=== PATIENT | male | born 1945 | race American Indian/Alaskan Native ===

== ENCOUNTER 2017-08-18 15:59 | Outpatient (CLI) | payer MEDICARE ==
[2017-08-18 16:42] LABS: Blood Urea Nitrogen 19 mg/dL (9-20)
== END 2017-08-18 16:00 | disposition home or self-care (01) ==
LOC: MRI 15:59
PROVIDERS: ATTEND Specialist
DX: G81.90 Hemiplegia, unspecified affecting unspecified side (principal)
CPT/HCPCS: 36415; 70553; 82565; 84520; A9577

== ENCOUNTER 2018-03-23 15:04 | Inpatient (IN) | payer MEDICARE ==
[2018-03-23 15:59] LABS: Basophils % (Auto) 0.6 % (0.0-1.8); Eosinophils # (Auto) 0.1 K/mm3 (0.0-0.4); Eosinophils % (Auto) 0.8 % (0.0-4.3); Hematocrit 46.9 % (35.5-45.6); Hemoglobin 15.2 gm/dl (11.8-15.2); Lymphocytes # (Auto) 2.4 K/mm3 (1.2-5.4); Lymphocytes % (Auto) 31.5 % (13.4-35.0); Mean Corpuscular HGB Conc 32 % (32-34); Mean Corpuscular Hemoglobin 26 pg (28-32); Mean Corpuscular Volume 82 fl (84-94); Monocytes # (Auto) 0.7 K/mm3 (0.0-0.8); Platelet Count 261 K/mm3 (140-440); Red Blood Count 5.75 M/mm3 (3.65-5.03); Red Cell Distribution Width 15.4 % (13.2-15.2)
[2018-03-23 16:02] LABS: INR 1.05 (0.87-1.13)
[2018-03-23 16:14] LABS: BUN/Creatinine Ratio 17; Blood Urea Nitrogen 20 mg/dL (9-20); Calcium 9.8 mg/dL (8.4-10.2); Hemolysis Index 7
--- NOTE | 2018-03-23 16:43 | Cat Scan Report ---
FINAL REPORT EXAM: CT HEAD/BRAIN WO CON HISTORY: neuro deficits < 6hrs or sx present upon awakening TECHNIQUE: CT examination of the head without IV contrast PRIORS: None. FINDINGS: Nonspecific small region of hypodensity is noted in the upper left parieto-occipital watershed region raising suspicion of focal ischemia or edema. Several nonspecific punctate densities in this region may be calcification or minimal hemorrhage. No evidence of acute fracture. The paranasal sinuses are clear as are the mastoid air cells and middle ear cavities. No brain midline shift. IMPRESSION: Small asymmetric hypodensity in the left parieto-occipital watershed region may reflect focal edema or ischemia. Nonspecific punctate densities in this region may be calcification or minimal hemorrhage. Recommend followup brain MRI with diffusion-weighted imaging to further characterize. 03/23/2018 at 4:34 p.m. EST: I discussed the findings over the phone with JUSTINO Jackson. She reports the patient has left eye visual disturbance
[2018-03-23] MEDS ORDERED: ASPIRIN PO ONE (17:40)
--- NOTE | 2018-03-23 17:48 | Emergency Department Report ---
ED Neuro Deficit HPI - General Chief Complaint: Neuro Symptoms/Deficit Stated Complaint: BLURRY VISON Time Seen by Provider: 03/23/18 16:47 Source: patient Mode of arrival: Ambulatory Limitations: No Limitations - History of Present Illness Initial Comments: Patient states that he had the gradual onset of generalized headache,, vague dizziness and blurred vision. Initially the patient stated that the visual symptoms were confined to the left eye. However on visual acuity testing he told me that he had blurred vision equally on both sides. He denied diplopia. He denied weakness or numbness of the face or extremities. He denies any difficulty in walking per se. He denies any visual field cuts. He is not taking any medicine for glaucoma. He said he took an aspirin at home today but family members said it was Tylenol. The symptoms have been static over the last 2 days. This is the patient's first medical encounter for the symptoms. His CT showed a hypodensity in the left parietal occipital watershed region. -: Gradual, days(s) Location: other (vision dizziness headache) Presenting Symptoms: Present: Blurred/Loss of Vision. Absent: Weak/Paralyzed One Side, Sudden, Severe Headache, Facial Droop/Numbness, Unable to Speak Clearly, Altered Mental Status History of same: No Place: home Severity: mild Quality: other Improves With: none Worsens With: none On Anticoagulants: No Context: gradual onset Associated Symptoms: denies other symptoms - Related Data Home Medications: Previous Rx's Medication Instructions Recorded Last Taken Type Azithromycin [Zithromax] 250 mg PO DAILY #6 tablet 10/21/16 Unknown Rx Allergies/Adverse Reactions: Allergies Allergy/AdvReac Type Severity Reaction Status Date / Time No Known Allergies Allergy Unverified 09/23/16 10:27 ED Review of Systems ROS: Stated complaint: BLURRY VISON Other details as noted in HPI Constitutional: denies: chills, fever Eyes: denies: eye pain, eye discharge, vision change ENT: denies: ear pain, throat pain Respiratory: denies: cough, shortness of breath, wheezing Cardiovascular: denies: chest pain, palpitations Endocrine: no symptoms reported Gastrointestinal: denies: abdominal pain, nausea, diarrhea Genitourinary: denies: urgency, dysuria Musculoskeletal: denies: back pain, joint swelling, arthralgia Skin: denies: rash, lesions Neurological: as per HPI, headache. denies: weakness, paresthesias Psychiatric: denies: anxiety, depression Hematological/Lymphatic: denies: easy bleeding, easy bruising ED Past Medical Hx - Past Medical History Hx Hypertension: Yes - Surgical History Past Surgical History?: No - Social History Smoking Status: Never Smoker Substance Use Type: None - Medications Home Medications: Home Medications Medication Instructions Recorded Confirmed Last Taken Type Azithromycin [Zithromax] 250 mg PO DAILY #6 tablet 10/21/16 Unknown Rx ED Neuro Physical Exam - General Limitations: No Limitations General appearance: alert, in no apparent distress Suspected Stroke: Yes - Head Head exam: Present: atraumatic, normocephalic - Eye Eye exam: Present: normal appearance, PERRL, EOMI. Absent: scleral icterus - ENT ENT exam: Present: mucous membranes moist - Neck Neck exam: Present: normal inspection. Absent: tenderness, meningismus - Respiratory Respiratory exam: Present: normal lung sounds bilaterally. Absent: respiratory distress - Cardiovascular Cardiovascular Exam: Present: regular rate, normal rhythm. Absent: systolic murmur, diastolic murmur, rubs, gallop - GI/Abdominal GI/Abdominal exam: Present: soft, normal bowel sounds. Absent: distended, tenderness, guarding, rebound, rigid - Rectal Rectal exam: Present: deferred - Extremities Exam Extremities exam: Present: normal inspection - Back Exam Back exam: Present: normal inspection - Neurological Exam Neurological exam: Present: alert, oriented X3, CN II-XII intact. Absent: motor sensory deficit - NIHSS Assessment Interval: Baseline 1a. Level of Consciousness: alert 1b. LOC Questions: answers correctly 1c. LOC Commands: performs tasks correctly 2. Best Gaze: normal 3. Visual: no visual loss (not grossly detectable states bilateral slight blurriness) 4. Facial Palsy: normal symmetrical movement 5b. Motor Arm Right: no drift 5a. Motor Arm Left: no drift 6a. Motor Leg Left: no drift 6b. Motor Leg Right: no drift 7. Limb Ataxia: absent 8. Sensory: normal 9. Best Language: no aphasia 10. Dysarthria: normal 11. Extinction/Inattention: no abnormality Total Score: 0 Stroke Severity: No Stroke Symptoms - Psychiatric Psychiatric exam: Present: normal affect, normal mood - Skin Skin exam: Present: warm, dry, intact, normal color. Absent: rash ED Course Vital Signs 03/23/18 03/23/18 15:30 17:42 Temperature 98.6 F 98.1 F Pulse Rate 66 55 L Respiratory 16 15 Rate Blood Pressure 167/87 Blood Pressure 132/65 [Left] O2 Sat by Pulse 99 98 Oximetry - Reevaluation(s) Reevaluation #1: The patient had a lacunar infarct in the left parieto-occipital watershed as per the CT. The radiologist states that there are punctate hyperdensities which may be calcification or minimal hemorrhage. I do not think that this is any contraindication to aspirin. TPA is not indicated as the patient has symptoms of 2 days' duration. The there's been no progression. The patient will be admitted for a stroke workup by Dr. Funk. His NIH stroke score is 0. 03/23/18 17:51 - Lab Data Result diagrams: 03/23/18 15:40 03/23/18 15:40 Lab Results 03/23/18 03/23/18 03/23/18 Range/Units 15:40 15:40 15:40 WBC 7.5 (4.5-11.0) K/mm3 RBC 5.75 H (3.65-5.03) M/mm3 Hgb 15.2 (11.8-15.2) gm/dl Hct 46.9 H (35.5-45.6) % MCV 82 L (84-94) fl MCH 26 L (28-32) pg MCHC 32 (32-34) % RDW 15.4 H (13.2-15.2) % Plt Count 261 (140-440) K/mm3 Lymph % (Auto) 31.5 (13.4-35.0) % [place] % (Auto) 9.0 H (0.0-7.3) % Eos % (Auto) 0.8 (0.0-4.3) % Baso % (Auto) 0.6 (0.0-1.8) % Lymph # 2.4 (1.2-5.4) K/mm3 [place] # 0.7 (0.0-0.8) K/mm3 Eos # 0.1 (0.0-0.4) K/mm3 Baso # 0.0 (0.0-0.1) K/mm3 Seg Neutrophils % 58.1 (40.0-70.0) % Seg Neutrophils # 4.4 (1.8-7.7) K/mm3 PT 14.2 (12.2-14.9) Sec. INR 1.05 (0.87-1.13) APTT 31.0 (24.2-36.6) Sec. Sodium 137 (137-145) mmol/L Potassium 4.6 (3.6-5.0) mmol/L Chloride 96.4 L (98-107) mmol/L Carbon Dioxide 28 (22-30) mmol/L Anion Gap 17 mmol/L BUN 20 (9-20) mg/dL Creatinine 1.2 (0.8-1.5) mg/dL Estimated GFR > 60 ml/min BUN/Creatinine Ratio 17 % Glucose 119 H (75-100) mg/dL Calcium 9.8 (8.4-10.2) mg/dL Troponin T < 0.010 (0.00-0.029) ng/mL - Radiology Data Radiology results: report reviewed Small asymmetric hypodensity in the left parietal occipital watershed see CT report Critical care attestation.: If time is entered above; I have spent that time in minutes in the direct care of this critically ill patient, excluding procedure time. ED Disposition Clinical Impression: CVA (cerebral vascular accident) Qualifiers: CVA mechanism: unspecified Qualified Code(s): I63.9 - Cerebral infarction, unspecified Disposition: DC-09 OP ADMIT IP TO THIS HOSP Is pt being admited?: Yes Does the pt Need Aspirin: Yes Condition: Stable Time of Disposition: 17:53
--- NOTE | 2018-03-23 22:40 | Magnetic Resonance Report ---
FINAL REPORT PROCEDURE: MR BRAIN WO CON TECHNIQUE: Magnetic resonance imaging of the brain was performed without contrast material. HISTORY: stroke left parietal occipital COMPARISON: CT head 03/23/2018 FINDINGS: Multiple hyperintense signal abnormalities are identified on the diffusion-weighted images involving the watershed zone of left parieto-occipital region and left caudate nucleus. Ischial smaller foci noted left centrum semiovale. There is no evidence of any acute intracranial hemorrhage. Cerebral sulci and ventricles are within normal limits for patient's age. T2 and FLAIR images demonstrate a few small hyperintense white matter signal abnormalities involving bilateral cerebral hemispheres which are of nonspecific nature measuring up to 4 millimeters. Posterior fossa structures are unremarkable. Bilateral internal artery canals and 7th and 8th nerve complexes within normal limits. Hyperintense signal is noted involving right mastoid air cells. Normal flow void signal is noted involving the vessels of [place]. Pituitary gland, infundibulum and optic chiasm demonstrate normal signal characteristics. IMPRESSION: Acute infarcts involving watershed zone of left parieto-occipital region and left caudate nucleus. No evidence of acute intracranial hemorrhage Right mastoiditis Note: Findings of this critical report were conveyed to JUSTINO Gould at 10:29 p.m. EST on 03/23/2018.
--- NOTE | 2018-03-23 22:48 | Magnetic Resonance Report ---
FINAL REPORT PROCEDURE: MR MRA/MRV HEAD WO CON TECHNIQUE: Axial 3-D [id number] MR angiography of the [place] of [place] and brain was performed. The source images were reconstructed in various views using maximum intensity projection. HISTORY: stroke left parietal occipital COMPARISON: No prior studies are available for comparison. FINDINGS: Vertebral arteries: Normal. Basilar artery: Normal. Internal carotid arteries: Right internal carotid artery is unremarkable. Left internal carotid artery demonstrates a borderline stenosis of the vertical cavernous portion.. Anterior cerebral arteries: Right anterior cerebral artery is unremarkable. A1 segment left anterior cerebral artery is not visualized which is most likely a normal variation.. Middle cerebral arteries: Normal. Posterior cerebral arteries: Normal. Vascular malformations: None. IMPRESSION: Borderline stenosis of the vertical portion left cavernous internal carotid. Conventional angiography may be recommended for further evaluation.
--- NOTE | 2018-03-23 23:10 | History and Physical Report ---
History of Present Illness Date of examination: 03/23/18 Date of admission: 03/23/18 17:54 Chief complaint: Chief complaint History of present illness: History of Present Illness: 72-year-old male comes in for dizziness and blurred vision and headache. Some weakness on the right side. Blurred vision in both eyes. Symptoms have been going on for 2 days. Able to walk. No exacerbating or relieving factors. Past Medical History Hx Hypertension: Yes Surgical History Past Surgical History?: No Social History Smoking Status: Never Smoker Substance Use Type: None Family history Hypertension - Medications Home Medications: Home Medications Medication Instructions Recorded Confirmed Last Taken Type Azithromycin [Zithromax] 250 mg PO DAILY #6 tablet 10/21/16 Unknown Rx Review of Systems ROS: Stated complaint: BLURRY VISON Other details as noted in HPI Constitutional: denies: chills, fever Eyes: denies: eye pain, eye discharge, vision change ENT: denies: ear pain, throat pain Respiratory: denies: cough, shortness of breath, wheezing Cardiovascular: denies: chest pain, palpitations Endocrine: no symptoms reported Gastrointestinal: denies: abdominal pain, nausea, diarrhea Genitourinary: denies: urgency, dysuria Musculoskeletal: denies: back pain, joint swelling, arthralgia Skin: denies: rash, lesions Neurological: as per HPI, headache. denies: weakness, paresthesias Psychiatric: denies: anxiety, depression Hematological/Lymphatic: denies: easy bleeding, easy bruising Medications and Allergies Allergies Allergy/AdvReac Type Severity Reaction Status Date / Time No Known Allergies Allergy Unverified 09/23/16 10:27 Home Medications Medication Instructions Recorded Confirmed Last Taken Type Azithromycin [Zithromax] 250 mg PO DAILY #6 tablet 10/21/16 Unknown Rx Exam - Constitutional Vitals: Temp Pulse Resp BP Pulse Ox 97.9 F 78 18 121/64 99 03/23/18 22:49 03/23/18 23:07 03/23/18 22:49 03/23/18 22:49 03/23/18 22:49 General appearance: Present: no acute distress, well-nourished - EENT Eyes: Present: PERRL ENT: hearing intact, clear oral mucosa - Neck Neck: Present: supple, normal ROM - Respiratory Respiratory effort: normal Respiratory: bilateral: CTA - Cardiovascular Heart rate: 76 Rhythm: regular Heart Sounds: Present: S1 & S2. Absent: rub, click - Extremities Extremities: no ischemia, pulses intact, pulses symmetrical, No edema Peripheral Pulses: within normal limits - Abdominal General gastrointestinal: Present: soft, non-tender, non-distended, normal bowel sounds Male genitourinary: Present: normal - Rectal Rectal Exam: deferred - Integumentary Integumentary: Present: clear, warm, dry - Musculoskeletal Musculoskeletal: gait normal, strength equal bilaterally - Psychiatric Psychiatric: appropriate mood/affect, intact judgment & insight - Neurologic Neurologic: CNII-XII intact, moves all extremities - Allied Health Allied health notes reviewed: nursing, case management Results - Labs CBC & Chem 7: 03/23/18 15:40 03/23/18 15:40 Labs: Laboratory Last Values WBC 7.5 K/mm3 (4.5-11.0) 03/23/18 15:40 RBC 5.75 M/mm3 (3.65-5.03) H 03/23/18 15:40 Hgb 15.2 gm/dl (11.8-15.2) 03/23/18 15:40 Hct 46.9 % (35.5-45.6) H 03/23/18 15:40 MCV 82 fl (84-94) L 03/23/18 15:40 MCH 26 pg (28-32) L 03/23/18 15:40 MCHC 32 % (32-34) 03/23/18 15:40 RDW 15.4 % (13.2-15.2) H 03/23/18 15:40 Plt Count 261 K/mm3 (140-440) 03/23/18 15:40 Lymph % (Auto) 31.5 % (13.4-35.0) 03/23/18 15:40 [place] % (Auto) 9.0 % (0.0-7.3) H 03/23/18 15:40 Eos % (Auto) 0.8 % (0.0-4.3) 03/23/18 15:40 Baso % (Auto) 0.6 % (0.0-1.8) 03/23/18 15:40 Lymph # 2.4 K/mm3 (1.2-5.4) 03/23/18 15:40 [place] # 0.7 K/mm3 (0.0-0.8) 03/23/18 15:40 Eos # 0.1 K/mm3 (0.0-0.4) 03/23/18 15:40 Baso # 0.0 K/mm3 (0.0-0.1) 03/23/18 15:40 Seg Neutrophils % 58.1 % (40.0-70.0) 03/23/18 15:40 Seg Neutrophils # 4.4 K/mm3 (1.8-7.7) 03/23/18 15:40 PT 14.2 Sec. (12.2-14.9) 03/23/18 15:40 INR 1.05 (0.87-1.13) 03/23/18 15:40 APTT 31.0 Sec. (24.2-36.6) 03/23/18 15:40 Thrombin Time 17.3 Sec. (15.1-19.6) 03/23/18 15:40 Sodium 137 mmol/L (137-145) 03/23/18 15:40 Potassium 4.6 mmol/L (3.6-5.0) 03/23/18 15:40 Chloride 96.4 mmol/L (98-107) L 03/23/18 15:40 Carbon Dioxide 28 mmol/L (22-30) 03/23/18 15:40 Anion Gap 17 mmol/L 03/23/18 15:40 BUN 20 mg/dL (9-20) 03/23/18 15:40 Creatinine 1.2 mg/dL (0.8-1.5) 03/23/18 15:40 Estimated GFR > 60 ml/min 03/23/18 15:40 BUN/Creatinine Ratio 17 % 03/23/18 15:40 Glucose 119 mg/dL (75-100) H 03/23/18 15:40 Calcium 9.8 mg/dL (8.4-10.2) 03/23/18 15:40 Troponin T < 0.010 ng/mL (0.00-0.029) 03/23/18 15:40 - Imaging and Cardiology EKG: report reviewed Imaging and Cardiology: IMPRESSION: Small asymmetric hypodensity in the left parieto-occipital watershed region may reflect focal edema or ischemia. Nonspecific punctate densities in this region may be calcification or minimal hemorrhage. Recommend followup brain MRI with diffusion-weighted imaging to further characterize. 2017 at 4:34 p.m. EST: I discussed the findings over the phone with RN Hazel Jackson. She reports the patient has left eye visual disturbance Assessment and Plan Advance Directives: Yes (full code) VTE prophylaxis?: Chemical Plan of care discussed with patient/family: Yes - Patient Problems (1) CVA (cerebral vascular accident) Current Visit: Yes Status: Acute Qualifiers: CVA mechanism: unspecified Qualified Code(s): I63.9 - Cerebral infarction, unspecified Plan to address problem: CVA workup Neurology consult requested MRI MRA echo and carotid duplex scan ordered Plavix not initiated. Will defer to neurology (2) Hypertension Current Visit: Yes Status: Chronic Qualifiers: Hypertension type: essential hypertension Qualified Code(s): I10 - Essential (primary) hypertension Plan to address problem: Losartan 100 mg by mouth daily (3) DVT prophylaxis Current Visit: Yes Status: Acute Plan to address problem: On heparin
[2018-03-23] MEDS ORDERED: SODIUM CHLORIDE FLUSH SYRINGE 10 ML IV PRN ×2 (23:12→23:16)
[2018-03-23] MEDS ORDERED: ZOFRAN IV PRN ×2 (23:12→23:16)
[2018-03-23] MEDS ORDERED: PERCOCET 5/325 PO PRN ×2 (23:12→23:16)
[2018-03-23] MEDS ORDERED: AMBIEN PO PRN ×2 (23:12→23:16)
[2018-03-23] MEDS ORDERED: TYLENOL PO PRN ×2 (23:12→23:16)
[2018-03-23] MEDS ORDERED: DILAUDID IV PRN (23:12)
[2018-03-23] MEDS ORDERED: MILK OF MAGNESIA PO PRN (23:16)
[2018-03-23] MEDS ORDERED: REGLAN PO PRN (23:16)
[2018-03-23] MEDS ORDERED: DULCOLAX PR PRN (23:16)
[2018-03-23] MEDS ORDERED: PHENERGAN PR PRN (23:16)
[2018-03-24] MEDS: NACL 0.9% 1000 ML 1,000 ML IV SCH ×2 (01:40→14:16)
[2018-03-24 06:44] LABS: Basophils % (Auto) 0.8 % (0.0-1.8); Eosinophils # (Auto) 0.1 K/mm3 (0.0-0.4); Eosinophils % (Auto) 1.9 % (0.0-4.3); Hematocrit 43.5 % (35.5-45.6); Hemoglobin 14.8 gm/dl (11.8-15.2); Lymphocytes % (Auto) 32.4 % (13.4-35.0); Mean Corpuscular HGB Conc 34 % (32-34); Mean Corpuscular Hemoglobin 28 pg (28-32); Mean Corpuscular Volume 81 fl (84-94); Monocytes # (Auto) 0.7 K/mm3 (0.0-0.8); Monocytes % (Auto) 11.7 % (0.0-7.3); Platelet Count 238 K/mm3 (140-440); Red Cell Distribution Width 15.8 % (13.2-15.2)
[2018-03-24 07:07] LABS: Alanine Aminotransferase 18 units/L (7-56); BUN/Creatinine Ratio 18; Blood Urea Nitrogen 18 mg/dL (9-20); Calcium 9.4 mg/dL (8.4-10.2); Chol/HDL Ratio 3.45 %; HDL Cholesterol 44 mg/dL (40-59); Hemolysis Index 3; LDL Cholesterol,Direct 102 mg/dL (50-130)
[2018-03-24] MEDS: PEPCID PO SCH ×2 (09:40→22:26)
[2018-03-24] MEDS: SODIUM CHLORIDE FLUSH SYRINGE 10 ML IV SCH ×2 (10:00→22:26)
[2018-03-24] MEDS ORDERED: PEPCID PO SCH (10:00)
--- NOTE | 2018-03-24 13:16 | History and Physical Report ---
History of Present Illness Date of examination: 03/24/18 Date of admission: 03/23/18 17:54 Chief complaint: FOCUSED NEUROLOGY CONSULT NOTE CC: I am asked to see this 72 M with two days of TUCKER, vague dizziness, and blurred vision, now resolved. ROBERT: Hx from chart adn patient. He has an Hx of HTN, and an HbA1c of 6.4 at this time. Then sx as above. Head CT (images reviewed) left parieto occipital hypodensity, head MRI (images reviewed) shows acute on DWI infarcts in left p-o lobe adn also in head of left caudate. MRA head borderline stenosis in vertical portion of intracavernous Carotid artery. No prior hx of stroke. ROS: an 11 point ROS ios negative NEURO EXAM: HEENT: nl, no trauma NECK: supple, no bruits COR: no m, rubs MS: alert, oriented x 3, speech fluent clear and without errors, follows commands well CN II - 12: al nl. no field cut to finger confrontation MOT: nl all four extrem SENS: denies loss to light touch throughout CEREB: fnf nl bilat DTRs: 1+ and symm prox and dist all four extrem, great toes downgoing to plantar stim bilat GAIT: not tested due to fall risk DX IMP: 1. Acute left parieto-occipital infarct (posterior circulation) and left caudate head infacrt (ant circ) of undermined cause. there are no clinical sequellae of these on exam. All his former sx have resolved. 2. Med dxs as above. RECC: 1. Get CTA neck 2. Get 2D echo 3. Do use ASA 325 mg po daily 4. Go from there. Sharee Del Angel MD Medications and Allergies Allergies Allergy/AdvReac Type Severity Reaction Status Date / Time No Known Allergies Allergy Unverified 09/23/16 10:27 Home Medications Medication Instructions Recorded Confirmed Last Taken Type No Known Home Medications [No 03/24/18 03/24/18 Unknown History Reported Home Medications] Active Meds: Active Medications Acetaminophen (Tylenol) 650 mg PO Q4H PRN PRN Reason: Pain, Mild (1-3) Atorvastatin Calcium (Lipitor) 40 mg PO QHS [place] Bisacodyl (Dulcolax) 10 mg ID QDAY PRN PRN Reason: Constipation Famotidine (Pepcid) 20 mg PO BID [facility] Last Admin: 03/24/18 09:40 Dose: 20 mg Hydralazine HCl (Apresoline) 10 mg IV Q6H PRN PRN Reason: Keep SBP between 160-185 mm Hg Hydromorphone HCl (Dilaudid) 0.5 mg IV Q3H PRN PRN Reason: Pain , Severe (7-10) Sodium Chloride (Nacl 0.9% 1000 Ml) 1,000 mls @ 75 mls/hr IV DIRECT [facility] Last Admin: 03/24/18 01:40 Dose: 75 mls/hr Magnesium Hydroxide (Milk Of Magnesia) 30 ml PO Q4H PRN PRN Reason: Constipation Metoclopramide HCl (Reglan) 10 mg PO Q6H PRN PRN Reason: Nausea And Vomiting Ondansetron HCl (Zofran) 4 mg IV Q8H PRN PRN Reason: Nausea And Vomiting Oxycodone/Acetaminophen (Percocet 5/325) 1 tab PO Q6H PRN PRN Reason: Pain, Moderate (4-6) Promethazine HCl (Phenergan) 25 mg ID Q6H PRN PRN Reason: Nausea And Vomiting Sodium Chloride (Sodium Chloride Flush Syringe 10 Ml) 10 ml IV BID [facility] Sodium Chloride (Sodium Chloride Flush Syringe 10 Ml) 10 ml IV PRN PRN PRN Reason: LINE FLUSH Zolpidem Tartrate (Ambien) 5 mg PO QHS PRN PRN Reason: Insomnia Physical Examination - Vital Signs Vital Signs: Vital Signs Temp Pulse Resp BP Pulse Ox 98.6 F 66 16 167/87 99 03/23/18 15:30 03/23/18 15:30 03/23/18 15:30 03/23/18 15:30 03/23/18 15:30 Results - Laboratory Findings CBC and BMP: 03/24/18 06:23 03/24/18 06:23 Abnormal Lab Findings: Abnormal Labs 03/23/18 03/23/18 03/23/18 15:40 15:40 23:26 RBC 5.75 H Hct 46.9 H MCV 82 L MCH 26 L RDW 15.4 H [place] % (Auto) 9.0 H Chloride 96.4 L Glucose 119 H Hemoglobin A1c 6.4 H 03/24/18 03/24/18 06:23 06:23 RBC 5.40 H Hct MCV 81 L MCH RDW 15.8 H [place] % (Auto) 11.7 H Chloride Glucose 105 H Hemoglobin A1c
--- NOTE | 2018-03-24 15:37 | Progress Note ---
Assessment and Plan Assessment and plan: Mr. Micah Garcia is a 72 yo man with htn and dm type 2 who pw headache, and lost of vision in left eye. -Acute ischemic infarct stoke: treat with asa/statin -hypertension: low salt diet, antihypertensive with parameters prn -newly diagnosis dm type 2 most likely, a1c 6.4: start metformin if renal function is ok and after dye study, no home insulin due to problem with eye sight -Severe malnutrition, bmi 15.9: consult Animal Scientist await echo with bubble study cta neck per neurology History Interval history: Patient was seen and examined. Follow-up on current diagnosis of vision loss left eye which is improving. Overnight uneventful. Patient denies any chest pain , shortness breath, nausea/vomiting or severe headaches. Imaging, nursing note, chart, labs and old chart reviewed. Discussed with patient. Hospitalist Physical - Physical exam Narrative exam: GEN: WDWN, NAD, Awake, Alert, Orientated x 3 HEENT: NCAT, EOMI, PERRL, OP Clear NECK: supple, no adenopathy, no thyromegaly, no JVD CVS/HEART: RRR, normal S1S2, pulses present bilaterally CHEST/LUNGS: CTA B, Symmetrical chest expansion, good air entry bilaterally GI/Abdomen: soft, NTND, good bowel sounds, no guarding or rebound /Bladder: no suprapubic tenderness, no CVA or paraspinal tenderness EXT/Skin: no c/c/e, no obvious rash MSK: FROM x 4 Neuro: CN 2-12 grossly intact, no new focal deficits Psych: calm - Constitutional Vitals: Temp Pulse Resp BP Pulse Ox 98.6 F 57 L 20 144/71 20 L 03/24/18 07:52 03/24/18 07:52 03/24/18 10:00 03/24/18 07:52 03/24/18 10:00 General appearance: Present: no acute distress, well-nourished Results - Labs CBC & Chem 7: 03/24/18 06:23 03/24/18 06:23 Labs: Laboratory Last Values WBC 6.1 K/mm3 (4.5-11.0) 03/24/18 06:23 RBC 5.40 M/mm3 (3.65-5.03) H 03/24/18 06:23 Hgb 14.8 gm/dl (11.8-15.2) 03/24/18 06:23 Hct 43.5 % (35.5-45.6) 03/24/18 06:23 MCV 81 fl (84-94) L 03/24/18 06:23 MCH 28 pg (28-32) 03/24/18 06:23 MCHC 34 % (32-34) 03/24/18 06:23 RDW 15.8 % (13.2-15.2) H 03/24/18 06:23 Plt Count 238 K/mm3 (140-440) 03/24/18 06:23 Lymph % (Auto) 32.4 % (13.4-35.0) 03/24/18 06:23 [place] % (Auto) 11.7 % (0.0-7.3) H 03/24/18 06:23 Eos % (Auto) 1.9 % (0.0-4.3) 03/24/18 06:23 Baso % (Auto) 0.8 % (0.0-1.8) 03/24/18 06:23 Lymph # 2.0 K/mm3 (1.2-5.4) 03/24/18 06:23 [place] # 0.7 K/mm3 (0.0-0.8) 03/24/18 06:23 Eos # 0.1 K/mm3 (0.0-0.4) 03/24/18 06:23 Baso # 0.0 K/mm3 (0.0-0.1) 03/24/18 06:23 Seg Neutrophils % 53.2 % (40.0-70.0) 03/24/18 06:23 Seg Neutrophils # 3.3 K/mm3 (1.8-7.7) 03/24/18 06:23 PT 14.2 Sec. (12.2-14.9) 03/23/18 15:40 INR 1.05 (0.87-1.13) 03/23/18 15:40 APTT 31.0 Sec. (24.2-36.6) 03/23/18 15:40 Thrombin Time 17.3 Sec. (15.1-19.6) 03/23/18 15:40 Sodium 141 mmol/L (137-145) 05/10/18 06:23 Potassium 4.5 mmol/L (3.6-5.0) 03/24/18 06:23 Chloride 99.9 mmol/L (98-107) 03/24/18 06:23 Carbon Dioxide 28 mmol/L (22-30) 03/24/18 06:23 Anion Gap 18 mmol/L 03/24/18 06:23 BUN 18 mg/dL (9-20) 03/24/18 06:23 Creatinine 1.0 mg/dL (0.8-1.5) 03/24/18 06:23 Estimated GFR > 60 ml/min 03/24/18 06:23 BUN/Creatinine Ratio 18 % 03/24/18 06:23 Glucose 105 mg/dL (75-100) H 03/24/18 06:23 Hemoglobin A1c 6.4 % (4-6) H 03/23/18 23:26 Calcium 9.4 mg/dL (8.4-10.2) 03/24/18 06:23 Total Bilirubin 0.70 mg/dL (0.1-1.2) 03/24/18 06:23 AST 29 units/L (5-40) 03/24/18 06:23 ALT 18 units/L (7-56) 03/24/18 06:23 Alkaline Phosphatase 90 units/L (35-129) 03/24/18 06:23 Troponin T < 0.010 ng/mL (0.00-0.029) 03/23/18 15:40 Total Protein 7.7 g/dL (6.3-8.2) 03/24/18 06:23 Albumin 4.0 g/dL (3.9-5) 03/24/18 06:23 Albumin/Globulin Ratio 1.1 % 03/24/18 06:23 Triglycerides 67 mg/dL (2-149) 03/24/18 06:23 Cholesterol 152 mg/dL (50-199) 03/24/18 06:23 LDL Cholesterol Direct 102 mg/dL (50-130) 03/24/18 06:23 HDL Cholesterol 44 mg/dL (40-59) 03/24/18 06:23 Cholesterol/HDL Ratio 3.45 % 03/24/18 06:23
[2018-03-24] MEDS ORDERED: D50W (25GM) Syringe IV PRN (15:43)
[2018-03-24] MEDS ORDERED: GLUCOPHAGE PO SCH (17:00)
[2018-03-24] MEDS: ASPIRIN PO SCH (19:06)
--- NOTE | 2018-03-24 19:34 | Cat Scan Report ---
FINAL REPORT EXAM: CT ANGIO NECK HISTORY: acute stroke TECHNIQUE: Spiral CTA of the neck after the uneventful administration of IV contrast. Multiplanar reformations. PRIORS: None. FINDINGS: Normal enhancement of the bilateral CCAs, ICAs and ECAs. Calcific, atherosclerotic change in the bilateral carotid bulbs and proximal ICAs, left greater than right. Marked, focal narrowing in the left ICA origin approximating 70% or greater stenosis by NASCET criteria. No abnormal aneurysmal dilatation, apparent dissection, other significant stenosis or occlusion. Vertebral arteries are patent and symmetric. Mild, calcific atherosclerotic change in the aortic arch. Degenerative change in the cervical spine. IMPRESSION: 1. Significant stenosis in left ICA origin as reported.
[2018-03-24] MEDS: HumaLOG SUB-Q SCH (22:25)
[2018-03-25] MEDS: NACL 0.9% 1000 ML 1,000 ML IV SCH (03:20)
--- NOTE | 2018-03-25 07:37 | Progress Note ---
Subjective Date of service: 03/25/18 Principal diagnosis: stroke Interval history: NEURO FOLLOW UP NOTE: 2d Echo: nl CTA neck: high grade stenosis left carotid bulb RECC: 1. Get Vasc Surg consult. 2. Go from there, call as needed. Sharee Del Angel MD Objective - Vital Sign Vital Signs - 12hr 03/24/18 03/24/18 03/25/18 20:06 23:54 00:00 Temperature 98.2 F 98.1 F Pulse Rate 73 66 65 Respiratory 18 18 Rate Blood Pressure 155/77 126/47 Blood Pressure [Left] O2 Sat by Pulse 100 96 Oximetry 03/25/18 03/25/18 03/25/18 04:00 05:34 05:47 Temperature 98.1 F Pulse Rate 66 56 L 56 L Respiratory Rate Blood Pressure Blood Pressure 129/78 [Left] O2 Sat by Pulse Oximetry - Laboratory Findings CBC and BMP: 03/24/18 06:23 03/24/18 06:23 Abnormal Lab Findings: Abnormal Labs 03/23/18 03/23/18 03/23/18 15:40 15:40 23:26 RBC 5.75 H Hct 46.9 H MCV 82 L MCH 26 L RDW 15.4 H [place] % (Auto) 9.0 H Chloride 96.4 L Glucose 119 H POC Glucose Hemoglobin A1c 6.4 H 03/24/18 03/24/18 03/25/18 06:23 06:23 06:41 RBC 5.40 H Hct MCV 81 L MCH RDW 15.8 H [place] % (Auto) 11.7 H Chloride Glucose 105 H POC Glucose 109 H Hemoglobin A1c
[2018-03-25] MEDS: HumaLOG SUB-Q SCH ×4 (07:56→23:52)
--- NOTE | 2018-03-25 10:55 | Consultation ---
History of Present Illness - Reason for Consult Consult date: 03/25/18 Left ICA stenosis - History of Present Illness 72-year-old male with history of diabetes, 5 years of smoking, who presents with headache, vague dizziness, and left-sided partial visual loss with blurred vision over the last few days. Patient denies any weakness or numbness to his upper or lower extremities. Denies visual field cut. Ultrasound demonstrates severe left ICA stenosis with ICA to CCA ratio greater than [address] demonstrates severe left-sided carotid artery stenosis at the bulb greater than 80% with irregularity. On physical exam, patient has no visual field cut, has full strength in upper and lower extremities, denies sensory loss, but does endorse left-sided visual loss. Patient is overall minimally symptomatic from his stroke. MRI demonstrates left-sided caudate and parieto-occipital watershed infarct. Past History Past Medical History: hypertension Past Surgical History: No surgical history Social history: smoking (no longer actively smoking, 5 years past exposure). denies: alcohol abuse, prescription drug abuse Family history: hypertension Medications and Allergies Allergies Allergy/AdvReac Type Severity Reaction Status Date / Time No Known Allergies Allergy Unverified 09/23/16 10:27 Home Medications Medication Instructions Recorded Confirmed Last Taken Type No Known Home Medications [No 03/24/18 03/24/18 Unknown History Reported Home Medications] Active Meds: Active Medications Acetaminophen (Tylenol) 650 mg PO Q4H PRN PRN Reason: Pain, Mild (1-3) Aspirin (Aspirin) 325 mg PO QDAY [facility] Last Admin: 03/24/18 19:06 Dose: 325 mg Atorvastatin Calcium (Lipitor) 40 mg PO QHS [facility] Last Admin: 03/24/18 22:26 Dose: 40 mg Bisacodyl (Dulcolax) 10 mg PA QDAY PRN PRN Reason: Constipation Dextrose (D50w (25gm) Syringe) 50 ml IV PRN PRN PRN Reason: Hypoglycemia Famotidine (Pepcid) 20 mg PO BID [facility] Last Admin: 03/24/18 22:26 Dose: 20 mg Hydralazine HCl (Apresoline) 10 mg IV Q6H PRN PRN Reason: Keep SBP between 160-185 mm Hg Hydromorphone HCl (Dilaudid) 0.5 mg IV Q3H PRN PRN Reason: Pain , Severe (7-10) Sodium Chloride (Nacl 0.9% 1000 Ml) 1,000 mls @ 75 mls/hr IV DIRECT [facility] Last Admin: 03/25/18 03:20 Dose: 75 mls/hr Insulin Human Lispro (Humalog) 0 unit SUB-Q ACHS [facility]; Protocol Last Admin: 03/24/18 22:25 Dose: Not Given Magnesium Hydroxide (Milk Of Magnesia) 30 ml PO Q4H PRN PRN Reason: Constipation Metoclopramide HCl (Reglan) 10 mg PO Q6H PRN PRN Reason: Nausea And Vomiting Ondansetron HCl (Zofran) 4 mg IV Q8H PRN PRN Reason: Nausea And Vomiting Oxycodone/Acetaminophen (Percocet 5/325) 1 tab PO Q6H PRN PRN Reason: Pain, Moderate (4-6) Promethazine HCl (Phenergan) 25 mg PA Q6H PRN PRN Reason: Nausea And Vomiting Sodium Chloride (Sodium Chloride Flush Syringe 10 Ml) 10 ml IV BID [facility] Last Admin: 03/24/18 22:26 Dose: 10 ml Sodium Chloride (Sodium Chloride Flush Syringe 10 Ml) 10 ml IV PRN PRN PRN Reason: LINE FLUSH Zolpidem Tartrate (Ambien) 5 mg PO QHS PRN PRN Reason: Insomnia Review of Systems All systems: negative (left visual symptoms) Exam - Constitutional Vitals: Temp Pulse Resp BP Pulse Ox 98.1 F 56 L 18 129/78 96 03/25/18 04:00 03/25/18 05:47 03/24/18 23:54 03/25/18 04:00 03/24/18 23:54 General appearance: Present: no acute distress - EENT ENT: other (left visual blurriness and difficulty seeing) - Neck Neck: Present: supple - Respiratory Respiratory effort: normal - Extremities Extremities: pulses intact (palpable pedal pulses), normal temperature, normal color Peripheral Pulses: within normal limits - Abdominal General gastrointestinal: Present: soft - Psychiatric Psychiatric: appropriate mood/affect, intact judgment & insight, memory intact - Neurologic Neurologic: CNII-XII intact, moves all extremities, other (left eye visual blurriness/difficulty seeing) Results - Labs CBC & Chem 7: 03/24/18 06:23 03/24/18 06:23 Labs: Abnormal lab results 03/25/18 Range/Units 06:41 POC Glucose 109 H (70-105) - Imaging and Cardiology CT Scan - head: report reviewed, image reviewed Venous US: report reviewed, image reviewed (arterial doppler) Assessment and Plan 72-year-old male with history of diabetes, 5 years of smoking, who presents with headache, vague dizziness, and left-sided partial visual loss with blurred vision over the last few days. Patient denies any weakness or numbness to his upper or lower extremities. Denies visual field cut. Ultrasound demonstrates severe left ICA stenosis with ICA to CCA ratio greater than [address] demonstrates severe left-sided carotid artery stenosis at the bulb greater than 80% with irregularity. MRI demonstrates left-sided caudate and parieto-occipital watershed infarct. Patient has a symptomatic left sided internal carotid artery lesion which is greater than 80% narrowed. He has a minor stroke. Discussed standard of care with patient which would be left-sided carotid endarterectomy after cardiac clearance. Patient understands. Risks, benefits, and alternatives discussed. Patient requires cardiac clearance. Continue antiplatelet and anti-statin therapy. Plan for endarterectomy this upcoming week.
[2018-03-25] MEDS: SODIUM CHLORIDE FLUSH SYRINGE 10 ML IV SCH ×3 (10:56→22:10)
[2018-03-25] MEDS: PEPCID PO SCH ×2 (10:56→21:54)
[2018-03-25] MEDS: ASPIRIN PO SCH (10:56)
--- NOTE | 2018-03-25 14:54 | Progress Note ---
Assessment and Plan Assessment and plan: Mr. Micah Garcia is a 72 yo man with htn and dm type 2 who pw headache, and lost of vision in left eye. -Acute ischemic infarct stoke: treat with asa/statin -High grade left ICA stenosis: consulted Vascular, see their note below, also consulted Cardiology for pre-op -hypertension: low salt diet, antihypertensive with parameters prn -newly diagnosis dm type 2 most likely, a1c 6.4: start metformin if renal function is ok and after dye study, no home insulin due to problem with eye sight -Severe malnutrition, bmi 15.9: consult Data Entry Manager per Dr. Patricio Bustamante: "72-year-old male with history of diabetes, 5 years of smoking, who presents with headache, vague dizziness, and left-sided partial visual loss with blurred vision over the last few days. Patient denies any weakness or numbness to his upper or lower extremities. Denies visual field cut. Ultrasound demonstrates severe left ICA stenosis with ICA to CCA ratio greater than [address] demonstrates severe left-sided carotid artery stenosis at the bulb greater than 80% with irregularity. On physical exam, patient has no visual field cut, has full strength in upper and lower extremities, denies sensory loss, but does endorse left-sided visual loss. Patient is overall minimally symptomatic from his stroke. MRI demonstrates left-sided caudate and parieto-occipital watershed infarct. 72-year-old male with history of diabetes, 5 years of smoking, who presents with headache, vague dizziness, and left-sided partial visual loss with blurred vision over the last few days. Patient denies any weakness or numbness to his upper or lower extremities. Denies visual field cut. Ultrasound demonstrates severe left ICA stenosis with ICA to CCA ratio greater than [address] demonstrates severe left-sided carotid artery stenosis at the bulb greater than 80% with irregularity. MRI demonstrates left-sided caudate and parieto-occipital watershed infarct. Patient has a symptomatic left sided internal carotid artery lesion which is greater than 80% narrowed. He has a minor stroke. Discussed standard of care with patient which would be left-sided carotid endarterectomy after cardiac clearance. Patient understands. Risks, benefits, and alternatives discussed. Patient requires cardiac clearance. Continue antiplatelet and anti-statin therapy. Plan for endarterectomy this upcoming week." History Interval history: Patient was seen and examined. Follow-up on current diagnosis of vision loss left eye which is improving. Overnight uneventful. Patient denies any chest pain , shortness breath, nausea/vomiting or severe headaches. Imaging, nursing note, chart, labs and old chart reviewed. Discussed with patient. Hospitalist Physical - Physical exam Narrative exam: GEN: WDWN, NAD, Awake, Alert, Orientated x 3 HEENT: NCAT, EOMI, PERRL, OP Clear NECK: supple, no adenopathy, no thyromegaly, no JVD CVS/HEART: RRR, normal S1S2, pulses present bilaterally CHEST/LUNGS: CTA B, Symmetrical chest expansion, good air entry bilaterally GI/Abdomen: soft, NTND, good bowel sounds, no guarding or rebound /Bladder: no suprapubic tenderness, no CVA or paraspinal tenderness EXT/Skin: no c/c/e, no obvious rash MSK: FROM x 4 Neuro: CN 2-12 grossly intact, no new focal deficits Psych: calm - Constitutional Vitals: Temp Pulse Resp BP Pulse Ox 98.1 F 56 L 18 129/78 96 03/25/18 04:00 03/25/18 05:47 03/24/18 23:54 03/25/18 04:00 03/24/18 23:54 General appearance: Present: no acute distress Results - Labs CBC & Chem 7: 03/24/18 06:23 03/24/18 06:23 Labs: Laboratory Last Values WBC 6.1 K/mm3 (4.5-11.0) 03/24/18 06:23 RBC 5.40 M/mm3 (3.65-5.03) H 03/24/18 06:23 Hgb 14.8 gm/dl (11.8-15.2) 03/24/18 06:23 Hct 43.5 % (35.5-45.6) 03/24/18 06:23 MCV 81 fl (84-94) L 03/24/18 06:23 MCH 28 pg (28-32) 03/24/18 06:23 MCHC 34 % (32-34) 03/24/18 06:23 RDW 15.8 % (13.2-15.2) H 03/24/18 06:23 Plt Count 238 K/mm3 (140-440) 03/24/18 06:23 Lymph % (Auto) 32.4 % (13.4-35.0) 03/24/18 06:23 [place] % (Auto) 11.7 % (0.0-7.3) H 03/24/18 06:23 Eos % (Auto) 1.9 % (0.0-4.3) 03/24/18 06:23 Baso % (Auto) 0.8 % (0.0-1.8) 03/24/18 06:23 Lymph # 2.0 K/mm3 (1.2-5.4) 03/24/18 06:23 [place] # 0.7 K/mm3 (0.0-0.8) 03/24/18 06: Eos # 0.1 K/mm3 (0.0-0.4) 03/24/18 06: Baso # 0.0 K/mm3 (0.0-0.1) 03/24/18 06:23 Seg Neutrophils % 53.2 % (40.0-70.0) 03/24/18 06:23 Seg Neutrophils # 3.3 K/mm3 (1.8-7.7) 03/24/18 06:23 PT 14.2 Sec. (12.2-14.9) 03/23/18 15:40 INR 1.05 (0.87-1.13) 03/23/18 15:40 APTT 31.0 Sec. (24.2-36.6) 03/23/18 15:40 Thrombin Time 17.3 Sec. (15.1-19.6) 03/23/18 15:40 Sodium 141 mmol/L (137-145) 03/24/18 06:23 Potassium 4.5 mmol/L (3.6-5.0) 03/24/18 06:23 Chloride 99.9 mmol/L (98-107) 03/24/18 06:23 Carbon Dioxide 28 mmol/L (22-30) 03/24/18 06:23 Anion Gap 18 mmol/L 03/24/18 06:23 BUN 18 mg/dL (9-20) 03/24/18 06:23 Creatinine 1.0 mg/dL (0.8-1.5) 03/24/18 06:23 Estimated GFR > 60 ml/min 03/24/18 06:23 BUN/Creatinine Ratio 18 % 03/24/18 06:23 Glucose 105 mg/dL (75-100) H 03/24/18 06:23 POC Glucose 106 (70-105) H 03/25/18 11:51 Hemoglobin A1c 6.4 % (4-6) H 03/23/18 23:26 Calcium 9.4 mg/dL (8.4-10.2) 03/24/18 06:23 Total Bilirubin 0.70 mg/dL (0.1-1.2) 03/24/18 06:23 AST 29 units/L (5-40) 03/24/18 06:23 ALT 18 units/L (7-56) 03/24/18 06:23 Alkaline Phosphatase 90 units/L (35-129) 03/24/18 06:23 Troponin T < 0.010 ng/mL (0.00-0.029) 03/23/18 15:40 Total Protein 7.7 g/dL (6.3-8.2) 03/24/18 06:23 Albumin 4.0 g/dL (3.9-5) 03/24/18 06:23 Albumin/Globulin Ratio 1.1 % 03/24/18 06:23 Triglycerides 67 mg/dL (2-149) 03/24/18 06:23 Cholesterol 152 mg/dL (50-199) 03/24/18 06:23 LDL Cholesterol Direct 102 mg/dL (50-130) 03/24/18 06:23 HDL Cholesterol 44 mg/dL (40-59) 03/24/18 06:23 Cholesterol/HDL Ratio 3.45 % 03/24/18 06:23
--- NOTE | 2018-03-25 16:00 | Consultation ---
History of Present Illness Consult date: 03/25/18 Past History Past Medical History: hypertension Past Surgical History: No surgical history Social history: smoking (no longer actively smoking, 5 years past exposure). denies: alcohol abuse, prescription drug abuse Family history: hypertension Medications and Allergies Allergies Allergy/AdvReac Type Severity Reaction Status Date / Time No Known Allergies Allergy Unverified 09/23/16 10:27 Home Medications Medication Instructions Recorded Confirmed Last Taken Type No Known Home Medications [No 03/24/18 03/24/18 Unknown History Reported Home Medications] Active Meds: Active Medications Acetaminophen (Tylenol) 650 mg PO Q4H PRN PRN Reason: Pain, Mild (1-3) Aspirin (Aspirin) 325 mg PO QDAY [facility] Last Admin: 03/25/18 10:56 Dose: 325 mg Atorvastatin Calcium (Lipitor) 80 mg PO QHS [facility] Bisacodyl (Dulcolax) 10 mg IN QDAY PRN PRN Reason: Constipation Dextrose (D50w (25gm) Syringe) 50 ml IV PRN PRN PRN Reason: Hypoglycemia Famotidine (Pepcid) 20 mg PO BID [facility] Last Admin: 03/25/18 10:56 Dose: 20 mg Hydralazine HCl (Apresoline) 10 mg IV Q6H PRN PRN Reason: Keep SBP between 160-185 mm Hg Hydromorphone HCl (Dilaudid) 0.5 mg IV Q3H PRN PRN Reason: Pain , Severe (7-10) Sodium Chloride (Nacl 0.9% 1000 Ml) 1,000 mls @ 75 mls/hr IV DIRECT [facility] Last Admin: 03/25/18 03:20 Dose: 75 mls/hr Insulin Human Lispro (Humalog) 0 unit SUB-Q ACHS [facility]; Protocol Last Admin: 03/25/18 07:56 Dose: Not Given Magnesium Hydroxide (Milk Of Magnesia) 30 ml PO Q4H PRN PRN Reason: Constipation Metoclopramide HCl (Reglan) 10 mg PO Q6H PRN PRN Reason: Nausea And Vomiting Ondansetron HCl (Zofran) 4 mg IV Q8H PRN PRN Reason: Nausea And Vomiting Oxycodone/Acetaminophen (Percocet 5/325) 1 tab PO Q6H PRN PRN Reason: Pain, Moderate (4-6) Promethazine HCl (Phenergan) 25 mg IN Q6H PRN PRN Reason: Nausea And Vomiting Sodium Chloride (Sodium Chloride Flush Syringe 10 Ml) 10 ml IV BID [facility] Last Admin: 03/25/18 10:56 Dose: 10 ml Sodium Chloride (Sodium Chloride Flush Syringe 10 Ml) 10 ml IV PRN PRN PRN Reason: LINE FLUSH Zolpidem Tartrate (Ambien) 5 mg PO QHS PRN PRN Reason: Insomnia Physical Examination Vital Signs Temp Pulse Resp BP Pulse Ox 98.6 F 66 16 167/87 99 03/23/18 15:30 03/23/18 15:30 03/23/18 15:30 03/23/18 15:30 03/23/18 15:30 Results 03/24/18 06:23 03/24/18 06:23 Assessment and Plan Detailed Cardiology consult dictated.
[2018-03-26] MEDS: NACL 0.9% 1000 ML 1,000 ML IV SCH ×2 (05:25→18:42)
[2018-03-26] MEDS: HumaLOG SUB-Q SCH ×4 (08:26→23:15)
[2018-03-26] MEDS: ASPIRIN PO SCH (10:09)
[2018-03-26] MEDS: PEPCID PO SCH ×2 (10:09→21:40)
[2018-03-26] MEDS: SODIUM CHLORIDE FLUSH SYRINGE 10 ML IV SCH ×2 (10:10→21:44)
--- NOTE | 2018-03-26 10:59 | Consultation ---
CARDIOLOGY CONSULTATION REFERRING PHYSICIAN: Dr. Shady Ackerman, hospitalist, and also Dr. Rashid Del Angel, neurologist. HISTORY OF PRESENT ILLNESS: A 72-year-old pleasant gentleman with history of multiple medical problems, hypertension, type 2 diabetes mellitus, hyperlipidemia, was admitted with partial loss of vision in the left eye associated with some blurring of vision and mild headache. A CAT scan of the head revealed a left parietooccipital watershed region -- focal edema or ischemia. CT angiogram of the neck revealed more than 70% stenosis of the left internal carotid artery. He is preop for surgery (left carotid endarterectomy). The patient has not had any chest pain, shortness of breath, nausea, vomiting, palpitations, presyncope or syncope. His echocardiogram done on 03/23/2018 revealed low normal LVEF of 50-55%, grade 1 diastolic left ventricular dysfunction, mild tricuspid regurgitation. There was no evidence of intracardiac shunt. His hemoglobin A1c recently was 6.4. PAST MEDICAL HISTORY: History of multiple medical problems as described above. No history of CAD or myocardial infarction in the past. SOCIAL HISTORY: Has been a smoker for the past 5 years. No history of alcoholic abuse. No history of drug abuse. FAMILY HISTORY: Negative for premature coronary artery disease. ADDENDUM: His serum troponin was negative. REVIEW OF SYSTEMS: CARDIOVASCULAR: As described in the history. NEUROLOGICAL: As described in the history. HEENT: As described in the history. METABOLISM AND ENDOCRINOLOGY: As described in the history. Review of rest of the 10 systems is negative. PHYSICAL EXAMINATION: GENERAL: A 72-year-old elderly pleasant -[place] gentleman. VITAL SIGNS: He is afebrile, pulse 56 per minute regular, blood pressure 129/78 mmHg, respirations 16 per minute. NEUROLOGIC: He is alert and oriented x 3. No focal neurological deficit. HEENT: Partial loss of vision in the left eye. NECK: Supple, no JVD, no bruit, no thyromegaly. HEART: PMI shifted laterally and is forcible in nature, no palpable thrills. Auscultation of heart revealed S1, S2 heard. S3 is loud, S4 is heard. No S3. No murmur or rub is appreciated. EXTREMITIES: Peripheral pulses felt. No edema. LUNGS: Bilateral air entry good and equal. No bronchial breathing, no wheezing. ABDOMEN: Soft, benign. No organomegaly. SKIN: Negative. BONE AND JOINTS: Negative. LABORATORY DATA: Potassium 4.5, BUN and creatinine were 20 and 1.2. Repeat BUN and creatinine 18 and 1. Glucose 106. Liver function test within normal limits. CBC, PT, PTT within normal limits. LDL is 102, HDL is 44 with normal triglycerides. EKG mild sinus bradycardia with rate of 57 per minute, first degree AV block. IMPRESSION: 1. Blurring and partial loss of vision in the left eye- Left acute CVA. 2. Critical stenosis in the left internal carotid artery (more than 70%). 3. History of hypertension, hyperlipidemia and type 2 diabetes mellitus. 4. Mild renal insufficiency, which has improved. 5. Normal left ventricular systolic function with evidence of grade 1 diastolic left ventricular dysfunction. RECOMMENDATIONS: The patient is cleared for the above surgery from a cardiac standpoint. Close blood pressure and cardiac monitoring is recommended. Since his LDL is 102, I would increase atorvastatin to 80 mg p.o. daily (the goal is to bring down 70 and below). Thank you again. We will follow. Yours Sincerely, JOB# [id number] SHELLY/HAROLDO PADILLA
--- NOTE | 2018-03-26 11:50 | Consultation ---
ADDENDUM TO CARDIOLOGY CONSULTATION The patient was a smoker in the past for about 5 years, but he has not smoked for many years now. JOB# [id number] SHELLY/HAROLDO
--- NOTE | 2018-03-26 12:01 | Progress Note ---
Assessment and Plan 72-year-old male with symptomatic left sided internal carotid artery lesion which is greater than 80% narrowed. He has a minor stroke with left eye issues. Patient cleared by cardiology. Patient will require clearance by neurology as well for left endarterectomy. Discussed this with Dr. Ackerman. After clearance by neurology, plan for left endarterectomy. Continue antiplatelet and anti-statin therapy. Subjective Date of service: 03/26/18 Principal diagnosis: stroke Interval history: Cleared by cardiology. Discussed with patient that we would like neurology to also agree with procedure. Neurology not available until Wednesday. Patient understands. No new issues. Still has left eye blurriness/decreased visual acuity. Objective - Constitutional Vitals: Vital Signs - 12hr 03/26/18 03/26/18 03/26/18 00:13 05:46 11:32 Temperature 97.4 F L 97.9 F Pulse Rate 60 56 L Respiratory 18 20 Rate Blood Pressure 147/72 138/57 O2 Sat by Pulse 97 99 100 Oximetry General appearance: Present: no acute distress - EENT ENT: hearing intact, other (left eye visual blurriness/decreased acuity) - Neck Neck: supple - Respiratory Respiratory effort: normal Extremities: normal temperature, normal color - Neurologic Neurologic: moves all extremities - Psychiatric Psychiatric: appropriate mood/affect, cooperative - Labs CBC & Chem 7: 03/24/18 06:23 03/24/18 06:23 Labs: Abnormal lab results 03/25/18 03/25/18 03/26/18 Range/Units 11:51 16:28 07:42 POC Glucose 106 H 140 H 114 H (70-105)
--- NOTE | 2018-03-26 14:26 | Progress Note ---
Assessment and Plan Assessment and plan: Mr. Micah Garcia is a 72 yo man with htn and dm type 2 who pw headache, and lost of vision in left eye. -Acute ischemic infarct stoke: treat with asa/statin -High grade left ICA stenosis: consulted Vascular, see their note below, also consulted Cardiology for pre-op -hypertension: low salt diet, antihypertensive with parameters prn -newly diagnosis dm type 2 most likely, a1c 6.4: start metformin if renal function is ok and after dye study, no home insulin due to problem with eye sight -Severe malnutrition, bmi 15.9: consult Ethnic Origins Teacher per Dr. Patricio Bustamante: "72-year-old male with history of diabetes, 5 years of smoking, who presents with headache, vague dizziness, and left-sided partial visual loss with blurred vision over the last few days. Patient denies any weakness or numbness to his upper or lower extremities. Denies visual field cut. Ultrasound demonstrates severe left ICA stenosis with ICA to CCA ratio greater than [address] demonstrates severe left-sided carotid artery stenosis at the bulb greater than 80% with irregularity. On physical exam, patient has no visual field cut, has full strength in upper and lower extremities, denies sensory loss, but does endorse left-sided visual loss. Patient is overall minimally symptomatic from his stroke. MRI demonstrates left-sided caudate and parieto-occipital watershed infarct. 72-year-old male with history of diabetes, 5 years of smoking, who presents with headache, vague dizziness, and left-sided partial visual loss with blurred vision over the last few days. Patient denies any weakness or numbness to his upper or lower extremities. Denies visual field cut. Ultrasound demonstrates severe left ICA stenosis with ICA to CCA ratio greater than [address] demonstrates severe left-sided carotid artery stenosis at the bulb greater than 80% with irregularity. MRI demonstrates left-sided caudate and parieto-occipital watershed infarct. Patient has a symptomatic left sided internal carotid artery lesion which is greater than 80% narrowed. He has a minor stroke. Discussed standard of care with patient which would be left-sided carotid endarterectomy after cardiac clearance. Patient understands. Risks, benefits, and alternatives discussed. Patient requires cardiac clearance. Continue antiplatelet and anti-statin therapy. Plan for endarterectomy this upcoming week." 04/05/18: d/w Dr. Bustamante, needs Neurology to ok the surgery. Will re-consult neurology, Dr. Cortes on Wednesday. History Interval history: Patient was seen and examined. Follow-up on current diagnosis of vision loss left eye which is improving. Overnight uneventful. Patient denies any chest pain , shortness breath, nausea/vomiting or severe headaches. Imaging, nursing note, chart, labs and old chart reviewed. Discussed with patient. Hospitalist Physical - Physical exam Narrative exam: GEN: WDWN, NAD, Awake, Alert, Orientated x 3 HEENT: NCAT, EOMI, PERRL, OP Clear NECK: supple, no adenopathy, no thyromegaly, no JVD CVS/HEART: RRR, normal S1S2, pulses present bilaterally CHEST/LUNGS: CTA B, Symmetrical chest expansion, good air entry bilaterally GI/Abdomen: soft, NTND, good bowel sounds, no guarding or rebound /Bladder: no suprapubic tenderness, no CVA or paraspinal tenderness EXT/Skin: no c/c/e, no obvious rash MSK: FROM x 4 Neuro: CN 2-12 grossly intact, no new focal deficits Psych: calm - Constitutional Vitals: Temp Pulse Resp BP Pulse Ox 97.9 F 56 L 20 138/57 100 03/26/18 05:46 03/26/18 05:46 03/26/18 05:46 03/26/18 05:46 03/26/18 11:32 General appearance: Present: no acute distress Results - Labs CBC & Chem 7: 03/24/18 06:23 03/24/18 06:23 Labs: Laboratory Last Values WBC 6.1 K/mm3 (4.5-11.0) 03/24/18 06:23 RBC 5.40 M/mm3 (3.65-5.03) H 03/24/18 06:23 Hgb 14.8 gm/dl (11.8-15.2) 03/24/18 06:23 Hct 43.5 % (35.5-45.6) 03/24/18 06:23 MCV 81 fl (84-94) L 03/24/18 06:23 MCH 28 pg (28-32) 03/24/18 06:23 MCHC 34 % (32-34) 03/24/18 06:23 RDW 15.8 % (13.2-15.2) H 03/24/18 06:23 Plt Count 238 K/mm3 (140-440) 03/24/18 06:23 Lymph % (Auto) 32.4 % (13.4-35.0) 03/24/18 06:23 [place] % (Auto) 11.7 % (0.0-7.3) H 03/24/18 06:23 Eos % (Auto) 1.9 % (0.0-4.3) 03/24/18 06:23 Baso % (Auto) 0.8 % (0.0-1.8) 03/24/18 06:23 Lymph # 2.0 K/mm3 (1.2-5.4) 03/24/18 06:23 [place] # 0.7 K/mm3 (0.0-0.8) 03/24/18 06: Eos # 0.1 K/mm3 (0.0-0.4) 03/24/18 06: Baso # 0.0 K/mm3 (0.0-0.1) 03/24/18 06:23 Seg Neutrophils % 53.2 % (40.0-70.0) 03/24/18 06:23 Seg Neutrophils # 3.3 K/mm3 (1.8-7.7) 03/24/18 06:23 PT 14.2 Sec. (12.2-14.9) 03/23/18 15:40 INR 1.05 (0.87-1.13) 03/23/18 15:40 APTT 31.0 Sec. (24.2-36.6) 03/23/18 15:40 Thrombin Time 17.3 Sec. (15.1-19.6) 03/23/18 15:40 Sodium 141 mmol/L (137-145) 03/24/18 06:23 Potassium 4.5 mmol/L (3.6-5.0) 03/24/18 06:23 Chloride 99.9 mmol/L (98-107) 03/24/18 06:23 Carbon Dioxide 28 mmol/L (22-30) 03/24/18 06:23 Anion Gap 18 mmol/L 03/24/18 06:23 BUN 18 mg/dL (9-20) 03/24/18 06:23 Creatinine 1.0 mg/dL (0.8-1.5) 03/24/18 06:23 Estimated GFR > 60 ml/min 03/24/18 06:23 BUN/Creatinine Ratio 18 % 03/24/18 06:23 Glucose 105 mg/dL (75-100) H 03/24/18 06:23 POC Glucose 96 (70-105) 03/26/18 10:52 Hemoglobin A1c 6.4 % (4-6) H 03/23/18 23:26 Calcium 9.4 mg/dL (8.4-10.2) 03/24/18 06:23 Total Bilirubin 0.70 mg/dL (0.1-1.2) 03/24/18 06:23 AST 29 units/L (5-40) 03/24/18 06:23 ALT 18 units/L (7-56) 03/24/18 06:23 Alkaline Phosphatase 90 units/L (35-129) 03/24/18 06:23 Troponin T < 0.010 ng/mL (0.00-0.029) 03/23/18 15:40 Total Protein 7.7 g/dL (6.3-8.2) 03/24/18 06:23 Albumin 4.0 g/dL (3.9-5) 03/24/18 06:23 Albumin/Globulin Ratio 1.1 % 03/24/18 06:23 Triglycerides 67 mg/dL (2-149) 03/24/18 06:23 Cholesterol 152 mg/dL (50-199) 03/24/18 06:23 LDL Cholesterol Direct 102 mg/dL (50-130) 03/24/18 06:23 HDL Cholesterol 44 mg/dL (40-59) 03/24/18 06:23 Cholesterol/HDL Ratio 3.45 % 03/24/18 06:23
--- NOTE | 2018-03-26 15:28 | Progress Note ---
Assessment and Plan As part of his preoperative cardiac risk stratification, he will undergo a Lexiscan stress MPI in a.m. More than likely, he should be able to proceed with his CEA from a cardiac standpoint. - Patient Problems (1) Acute CVA (cerebrovascular accident) Current Visit: Yes Status: Acute (2) Stenosis of left internal carotid artery with cerebral infarction Current Visit: Yes Status: Acute (3) Hypertension Current Visit: Yes Status: Chronic Qualifiers: Hypertension type: essential hypertension Qualified Code(s): I10 - Essential (primary) hypertension (4) Diabetes mellitus Current Visit: Yes Status: Chronic Qualifiers: Diabetes mellitus type: type 2 Subjective Date of service: 03/26/18 Principal diagnosis: CVA, LICA stenosis Interval history: No new complaint. Objective Vital Signs Temp Pulse Resp BP Pulse Ox 03/26/18 14:00 61 03/26/18 11:32 100 03/26/18 10:00 20 98 03/26/18 05:46 97.9 F 56 L 20 138/57 99 03/26/18 00:13 97.4 F L 60 18 147/72 97 03/25/18 22:00 65 03/25/18 21:23 98.3 F 67 20 143/68 99 03/25/18 20:13 99 - Physical Examination General: No Apparent Distress HEENT: Positive: EOMI, Normocephaly, Mucus Membranes Moist Neck: Positive: neck supple, trachea midline Cardiac: Positive: Reg Rate and Rhythm, S1/S2 Lungs: Positive: clear to auscultation Neuro: Positive: Grossly Intact Abdomen: Positive: Soft, Active Bowel Sounds. Negative: Tender Skin: Positive: Clear. Negative: Rash Musculoskeletal: Normal Range of Motion Extremities: Present: normal. Absent: edema - Telemetry EKG Rhythm: Sinus Rhythm
[2018-03-26] MEDS: APRESOLINE IV PRN (18:33)
[2018-03-26] MEDS: LOPRESSOR PO SCH (21:41)
[2018-03-26 21:53] LABS: BUN/Creatinine Ratio 14; Blood Urea Nitrogen 15 mg/dL (9-20); Calcium 9.4 mg/dL (8.4-10.2); Hemolysis Index 12
[2018-03-27] MEDS: HumaLOG SUB-Q SCH ×4 (07:30→22:52)
[2018-03-27] MEDS ORDERED: LEXISCAN IV ONE ×2 (08:18→08:28)
--- NOTE | 2018-03-27 12:00 | Treadmill Report ---
LEXISCAN STRESS TEST REPORT REASON FOR STUDY: Preoperative cardiac evaluation. STRESS TEST PROTOCOL: The patient received 0.4 mg of Lexiscan intravenously over 10 seconds. Technetium-99m Tetrofosmin was subsequently injected. Baseline EKG, sinus rhythm with first degree AV block. Lexiscan EKG, no diagnostic ischemic changes. No chest pain. No arrhythmias. IMPRESSION: Electrocardiographically negative stress test. Nuclear imaging report to follow. [facility]# [id number] AGO/NTS
--- NOTE | 2018-03-27 12:32 | Progress Note ---
Assessment and Plan He appears stable from a cardiac standpoint to proceed with his CEA. - Patient Problems (1) Acute CVA (cerebrovascular accident) Current Visit: Yes Status: Acute (2) Stenosis of left internal carotid artery with cerebral infarction Current Visit: Yes Status: Acute (3) Hypertension Current Visit: Yes Status: Chronic Qualifiers: Hypertension type: essential hypertension Qualified Code(s): I10 - Essential (primary) hypertension (4) Diabetes mellitus Current Visit: Yes Status: Chronic Qualifiers: Diabetes mellitus type: type 2 Subjective Date of service: 03/27/18 Principal diagnosis: CVA, LICA stenosis Interval history: His BP was significantly elevated last night. Antihypertensive medication has been initiated. No complaint this am. He underwent pharmacologic stress MPI this morning which was negative for ischemia. Objective Vital Signs Temp Pulse Resp BP Pulse Ox 03/27/18 04:55 98.3 F 65 20 131/70 99 03/27/18 00:20 98.1 F 62 18 151/74 99 03/26/18 21:41 90 182/81 03/26/18 20:33 98.4 F 87 18 182/81 99 03/26/18 18:33 61 177/86 03/26/18 14:00 61 - Physical Examination General: No Apparent Distress HEENT: Positive: EOMI, Normocephaly, Mucus Membranes Moist Neck: Positive: neck supple, trachea midline Cardiac: Positive: Reg Rate and Rhythm, S1/S2 Lungs: Positive: clear to auscultation Neuro: Positive: Grossly Intact Abdomen: Positive: Soft, Active Bowel Sounds. Negative: Tender Skin: Positive: Clear. Negative: Rash Musculoskeletal: Normal Range of Motion Extremities: Present: normal. Absent: edema - Labs and Meds Comprehensive Metabolic Panel 03/26/18 Range/Units 21:35 Sodium 138 (137-145) mmol/L Potassium 3.9 (3.6-5.0) mmol/L Chloride 101.2 (98-107) mmol/L Carbon Dioxide 23 (22-30) mmol/L BUN 15 (9-20) mg/dL Creatinine 1.1 (0.8-1.5) mg/dL Glucose 104 H (75-100) mg/dL Calcium 9.4 (8.4-10.2) mg/dL - Telemetry EKG Rhythm: Sinus Rhythm
--- NOTE | 2018-03-27 14:24 | Progress Note ---
Assessment and Plan Assessment and plan: Mr. Micah Garcia is a 72 yo man with htn and dm type 2 who pw headache, and lost of vision in left eye. -Acute ischemic infarct stoke: treat with asa/statin -High grade left ICA stenosis: consulted Vascular, see their note below, also consulted Cardiology for pre-op -hypertension: low salt diet, antihypertensive with parameters prn -newly diagnosis dm type 2 most likely, a1c 6.4: start metformin if renal function is ok and after dye study, no home insulin due to problem with eye sight -Severe malnutrition, bmi 15.9: consult Vacuum Metalizing Supervisor per Dr. Patricio Bustamante: "72-year-old male with history of diabetes, 5 years of smoking, who presents with headache, vague dizziness, and left-sided partial visual loss with blurred vision over the last few days. Patient denies any weakness or numbness to his upper or lower extremities. Denies visual field cut. Ultrasound demonstrates severe left ICA stenosis with ICA to CCA ratio greater than [address] demonstrates severe left-sided carotid artery stenosis at the bulb greater than 80% with irregularity. On physical exam, patient has no visual field cut, has full strength in upper and lower extremities, denies sensory loss, but does endorse left-sided visual loss. Patient is overall minimally symptomatic from his stroke. MRI demonstrates left-sided caudate and parieto-occipital watershed infarct. 72-year-old male with history of diabetes, 5 years of smoking, who presents with headache, vague dizziness, and left-sided partial visual loss with blurred vision over the last few days. Patient denies any weakness or numbness to his upper or lower extremities. Denies visual field cut. Ultrasound demonstrates severe left ICA stenosis with ICA to CCA ratio greater than [address] demonstrates severe left-sided carotid artery stenosis at the bulb greater than 80% with irregularity. MRI demonstrates left-sided caudate and parieto-occipital watershed infarct. Patient has a symptomatic left sided internal carotid artery lesion which is greater than 80% narrowed. He has a minor stroke. Discussed standard of care with patient which would be left-sided carotid endarterectomy after cardiac clearance. Patient understands. Risks, benefits, and alternatives discussed. Patient requires cardiac clearance. Continue antiplatelet and anti-statin therapy. Plan for endarterectomy this upcoming week." 04/05/18: d/w Dr. Bustamante, needs Neurology to ok the surgery. Will re-consult neurology, Dr. Cortes on Wednesday. History Interval history: Patient was seen and examined. Follow-up on current diagnosis of vision loss left eye which is improving. Overnight uneventful. Patient denies any chest pain , shortness breath, nausea/vomiting or severe headaches. Imaging, nursing note, chart, labs and old chart reviewed. Discussed with patient. Hospitalist Physical - Physical exam Narrative exam: GEN: WDWN, NAD, Awake, Alert, Orientated x 3 HEENT: NCAT, EOMI, PERRL, OP Clear NECK: supple, no adenopathy, no thyromegaly, no JVD CVS/HEART: RRR, normal S1S2, pulses present bilaterally CHEST/LUNGS: CTA B, Symmetrical chest expansion, good air entry bilaterally GI/Abdomen: soft, NTND, good bowel sounds, no guarding or rebound /Bladder: no suprapubic tenderness, no CVA or paraspinal tenderness EXT/Skin: no c/c/e, no obvious rash MSK: FROM x 4 Neuro: CN 2-12 grossly intact, no new focal deficits Psych: calm - Constitutional Vitals: Temp Pulse Resp BP Pulse Ox 98.3 F 80 20 151/73 99 03/27/18 04:55 03/27/18 11:26 03/27/18 04:55 03/27/18 11:26 03/27/18 04:55 General appearance: Present: no acute distress Results - Labs CBC & Chem 7: 03/24/18 06:23 03/26/18 21:35 Labs: Laboratory Last Values WBC 6.1 K/mm3 (4.5-11.0) 03/24/18 06:23 RBC 5.40 M/mm3 (3.65-5.03) H 03/24/18 06:23 Hgb 14.8 gm/dl (11.8-15.2) 03/24/18 06:23 Hct 43.5 % (35.5-45.6) 03/24/18 06:23 MCV 81 fl (84-94) L 03/24/18 06:23 MCH 28 pg (28-32) 03/24/18 06:23 MCHC 34 % (32-34) 03/24/18 06:23 RDW 15.8 % (13.2-15.2) H 03/24/18 06:23 Plt Count 238 K/mm3 (140-440) 03/24/18 06:23 Lymph % (Auto) 32.4 % (13.4-35.0) 03/24/18 06:23 [place] % (Auto) 11.7 % (0.0-7.3) H 03/24/18 06:23 Eos % (Auto) 1.9 % (0.0-4.3) 03/24/18 06:23 Baso % (Auto) 0.8 % (0.0-1.8) 03/24/18 06:23 Lymph # 2.0 K/mm3 (1.2-5.4) 03/24/18 06:23 [place] # 0.7 K/mm3 (0.0-0.8) 03/24/18 06: Eos # 0.1 K/mm3 (0.0-0.4) 03/24/18 06: Baso # 0.0 K/mm3 (0.0-0.1) 03/24/18 06:23 Seg Neutrophils % 53.2 % (40.0-70.0) 03/24/18 06: Seg Neutrophils # 3.3 K/mm3 (1.8-7.7) 03/24/18 06:23 PT 14.2 Sec. (12.2-14.9) 03/23/18 15:40 INR 1.05 (0.87-1.13) 03/23/18 15:40 APTT 31.0 Sec. (24.2-36.6) 03/23/18 15:40 Thrombin Time 17.3 Sec. (15.1-19.6) 03/23/18 15:40 Sodium 138 mmol/L (137-145) 03/26/18 21:35 Potassium 3.9 mmol/L (3.6-5.0) 03/26/18 21:35 Chloride 101.2 mmol/L (98-107) 03/26/18 21:35 Carbon Dioxide 23 mmol/L (22-30) 03/26/18 21:35 Anion Gap 18 mmol/L 03/26/18 21:35 BUN 15 mg/dL (9-20) 03/26/18 21:35 Creatinine 1.1 mg/dL (0.8-1.5) 03/26/18 21:35 Estimated GFR > 60 ml/min 03/26/18 21:35 BUN/Creatinine Ratio 14 % 03/26/18 21:35 Glucose 104 mg/dL (75-100) H 03/26/18 21:35 POC Glucose 156 (70-105) H 03/27/18 12:35 Hemoglobin A1c 6.4 % (4-6) H 03/23/18 23:26 Calcium 9.4 mg/dL (8.4-10.2) 03/26/18 21:35 Magnesium 2.00 mg/dL (1.7-2.3) 03/26/18 21:35 Total Bilirubin 0.70 mg/dL (0.1-1.2) 03/24/18 06:23 AST 29 units/L (5-40) 03/24/18 06:23 ALT 18 units/L (7-56) 03/24/18 06:23 Alkaline Phosphatase 90 units/L (35-129) 03/24/18 06:23 Troponin T < 0.010 ng/mL (0.00-0.029) 03/23/18 15:40 Total Protein 7.7 g/dL (6.3-8.2) 03/24/18 06:23 Albumin 4.0 g/dL (3.9-5) 03/24/18 06:23 Albumin/Globulin Ratio 1.1 % 03/24/18 06:23 Triglycerides 67 mg/dL (2-149) 03/24/18 06:23 Cholesterol 152 mg/dL (50-199) 03/24/18 06:23 LDL Cholesterol Direct 102 mg/dL (50-130) 03/24/18 06:23 HDL Cholesterol 44 mg/dL (40-59) 03/24/18 06:23 Cholesterol/HDL Ratio 3.45 % 03/24/18 06:23
[2018-03-27] MEDS: LOPRESSOR PO SCH ×2 (14:26→21:45)
[2018-03-27] MEDS: PEPCID PO SCH ×2 (14:26→21:45)
[2018-03-27] MEDS: DIOVAN PO SCH (14:31)
[2018-03-27] MEDS: ASPIRIN PO SCH (14:31)
[2018-03-27] MEDS: SODIUM CHLORIDE FLUSH SYRINGE 10 ML IV SCH ×2 (14:32→21:45)
--- NOTE | 2018-03-27 18:45 | Treadmill Report ---
THALLIUM REPORT REASON FOR STUDY: Preoperative cardiac evaluation. IMAGING PROTOCOL: The patient received 10 mCi of Tc-99m Tetrofosmin for rest imaging, and 28 mCi of Tc-99m Tetrofosmin for stress imaging. Imaging for all procedures was completed 30-90 minutes following the initial injection of Technetium 99m Tetrofosmin. SPECT imaging in the 180-degree arc was performed in the right anterior oblique projection. Computerized reconstruction of the images was performed for analysis. NUCLEAR IMAGING RESULTS: Normal left ventricular cavity size with no change from stress to rest. Distribution of radionuclide within the left ventricle revealed a large area of photo-induction involving the inferior, inferoseptal, and inferoapical region. The degree of photo-induction is [id number]. Rest imaging does not show any significant improvement in this defect. Gated SPECT imaging revealed normal global left ventricular systolic function with moderate septal hypokinesis. The calculated left ventricular ejection fraction is 63%. IMPRESSION: Large fixed inferior, inferoseptal and inferoapical defect. Normal global left ventricular systolic function with moderate septal hypokinesis. Ejection fraction 63%. These findings suggest prior infarction in the right coronary artery territory. However, in the absence of wall motion abnormality in the inferior wall, the defect noted in this patient is probably artifactual. No evidence of significant stress-induced ischemia. [facility]# [id number] [place]
[2018-03-28] MEDS: HumaLOG SUB-Q SCH ×4 (08:00→21:51)
--- NOTE | 2018-03-28 11:07 | Event Note ---
Date: 03/28/18 He is cleared to have carotid endarterectomy. Would advise TIGHT BP CONTROL POSTOP, keeping systolic 120-150 and diastolic 60-85 to prevent hemorrhagic transformation of strokes.
--- NOTE | 2018-03-28 11:08 | Progress Note ---
Assessment and Plan Pt presents with 2 day h/o left eye blurriness and right sided numbness. He reports taking an 81mg ASA daily (without missing doses). MRI shows an acute infarct in the watershed zone of the L parieto-occipal area and the caudate nucleus. Carotid duplex suggest 80-99% based upon ICA/CCA RATIO of 7.90. Pt will need left carotid endarterectomy. Pt has been cleared for surgery by cardiology. Will review operative schedule, to determine timing of surgery. Dr Bustamante and Hospitalist discussed over the weekend and will have Neurology f/u. If no objections then would proceed with CEA (as surgery schedule allows). - Patient Problems (1) Stenosis of left internal carotid artery with cerebral infarction Current Visit: Yes Status: Acute (2) Diabetes mellitus Current Visit: Yes Status: Chronic Qualifiers: Diabetes mellitus type: type 2 (3) Hypertension Current Visit: Yes Status: Chronic Qualifiers: Hypertension type: essential hypertension Qualified Code(s): I10 - Essential (primary) hypertension Subjective Date of service: 03/28/18 Principal diagnosis: CVA, LICA stenosis Interval history: Pt awake and alert. Left eye blurriness without significant improvement. Right sided numbness improving. No new complaints. Objective - Constitutional Vitals: Vital Signs - 12hr 03/28/18 03/28/18 03/28/18 00:05 00:33 04:57 Temperature Pulse Rate 52 L 64 55 L Respiratory 16 Rate Blood Pressure 119/72 Blood Pressure [Left] O2 Sat by Pulse 100 99 Oximetry 03/28/18 03/28/18 05:12 07:48 Temperature 98.3 F 98.4 F Pulse Rate 55 L 55 L Respiratory 20 Rate Blood Pressure 133/88 Blood Pressure 131/65 [Left] O2 Sat by Pulse 99 98 Oximetry General appearance: Present: no acute distress - EENT Eyes: EOM intact ENT: hearing intact - Neck Neck: supple - Respiratory Respiratory effort: normal Extremities: no ischemia - Musculoskeletal Musculoskeletal: strength equal bilaterally - Neurologic Neurologic: no focal deficits, moves all extremities - Psychiatric Psychiatric: appropriate mood/affect, intact judgment & insight, cooperative - Labs CBC & Chem 7: 03/24/18 06:23 03/26/18 21:35 Labs: Abnormal lab results 03/27/18 03/27/18 Range/Units 12:35 22:22 POC Glucose 156 H 110 H (70-105)
--- NOTE | 2018-03-28 11:21 | Progress Note ---
Assessment and Plan Assessment and plan: Mr. Micah Garcia is a 72 yo man with htn and dm type 2 who pw headache, and lost of vision in left eye. -Acute ischemic infarct stoke: treat with asa/statin -High grade left ICA stenosis: consulted Vascular, see their note below, also consulted Cardiology for pre-op -hypertension: low salt diet, antihypertensive with parameters prn -newly diagnosis dm type 2 most likely, a1c 6.4: start metformin if renal function is ok and after dye study, no home insulin due to problem with eye sight -Severe malnutrition, bmi 15.9: consult Database Consultant per Dr. Patricio Bustamante: "72-year-old male with history of diabetes, 5 years of smoking, who presents with headache, vague dizziness, and left-sided partial visual loss with blurred vision over the last few days. Patient denies any weakness or numbness to his upper or lower extremities. Denies visual field cut. Ultrasound demonstrates severe left ICA stenosis with ICA to CCA ratio greater than [address] demonstrates severe left-sided carotid artery stenosis at the bulb greater than 80% with irregularity. On physical exam, patient has no visual field cut, has full strength in upper and lower extremities, denies sensory loss, but does endorse left-sided visual loss. Patient is overall minimally symptomatic from his stroke. MRI demonstrates left-sided caudate and parieto-occipital watershed infarct. 72-year-old male with history of diabetes, 5 years of smoking, who presents with headache, vague dizziness, and left-sided partial visual loss with blurred vision over the last few days. Patient denies any weakness or numbness to his upper or lower extremities. Denies visual field cut. Ultrasound demonstrates severe left ICA stenosis with ICA to CCA ratio greater than [address] demonstrates severe left-sided carotid artery stenosis at the bulb greater than 80% with irregularity. MRI demonstrates left-sided caudate and parieto-occipital watershed infarct. Patient has a symptomatic left sided internal carotid artery lesion which is greater than 80% narrowed. He has a minor stroke. Discussed standard of care with patient which would be left-sided carotid endarterectomy after cardiac clearance. Patient understands. Risks, benefits, and alternatives discussed. Patient requires cardiac clearance. Continue antiplatelet and anti-statin therapy. Plan for endarterectomy this upcoming week." 04/05/18: d/w Dr. Bustamante, needs Neurology to ok the surgery. Will re-consult neurology, Dr. Cortes on Wednesday. History Interval history: Patient was seen and examined. Follow-up on current diagnosis of vision loss left eye which is improving. Overnight uneventful. Patient denies any chest pain , shortness breath, nausea/vomiting or severe headaches. Imaging, nursing note, chart, labs and old chart reviewed. Discussed with patient. Hospitalist Physical - Physical exam Narrative exam: GEN: WDWN, NAD, Awake, Alert, Orientated x 3 HEENT: NCAT, EOMI, PERRL, OP Clear NECK: supple, no adenopathy, no thyromegaly, no JVD CVS/HEART: RRR, normal S1S2, pulses present bilaterally CHEST/LUNGS: CTA B, Symmetrical chest expansion, good air entry bilaterally GI/Abdomen: soft, NTND, good bowel sounds, no guarding or rebound /Bladder: no suprapubic tenderness, no CVA or paraspinal tenderness EXT/Skin: no c/c/e, no obvious rash MSK: FROM x 4 Neuro: CN 2-12 grossly intact, no new focal deficits Psych: calm - Constitutional Vitals: Temp Pulse Resp BP Pulse Ox 98.4 F 55 L 20 131/65 98 03/28/18 07:48 03/28/18 07:48 03/28/18 05:12 03/28/18 07:48 03/28/18 07:48 General appearance: Present: no acute distress Results - Labs CBC & Chem 7: 03/24/18 06:23 03/26/18 21:35 Labs: Laboratory Last Values WBC 6.1 K/mm3 (4.5-11.0) 03/24/18 06:23 RBC 5.40 M/mm3 (3.65-5.03) H 03/24/18 06:23 Hgb 14.8 gm/dl (11.8-15.2) 03/24/18 06:23 Hct 43.5 % (35.5-45.6) 03/24/18 06:23 MCV 81 fl (84-94) L 03/24/18 06:23 MCH 28 pg (28-32) 03/24/18 06:23 MCHC 34 % (32-34) 03/24/18 06:23 RDW 15.8 % (13.2-15.2) H 03/24/18 06:23 Plt Count 238 K/mm3 (140-440) 03/24/18 06:23 Lymph % (Auto) 32.4 % (13.4-35.0) 03/24/18 06:23 [place] % (Auto) 11.7 % (0.0-7.3) H 03/24/18 06:23 Eos % (Auto) 1.9 % (0.0-4.3) 03/24/18 06:23 Baso % (Auto) 0.8 % (0.0-1.8) 03/24/18 06:23 Lymph # 2.0 K/mm3 (1.2-5.4) 03/24/18 06: [place] # 0.7 K/mm3 (0.0-0.8) 03/24/18 06: Eos # 0.1 K/mm3 (0.0-0.4) 03/24/18 06: Baso # 0.0 K/mm3 (0.0-0.1) 03/24/18 06:23 Seg Neutrophils % 53.2 % (40.0-70.0) 03/24/18 06: Seg Neutrophils # 3.3 K/mm3 (1.8-7.7) 03/24/18 06:23 PT 14.2 Sec. (12.2-14.9) 03/23/18 15:40 INR 1.05 (0.87-1.13) 03/23/18 15:40 APTT 31.0 Sec. (24.2-36.6) 03/23/18 15:40 Thrombin Time 17.3 Sec. (15.1-19.6) 03/23/18 15:40 Sodium 138 mmol/L (137-145) 03/26/18 21:35 Potassium 3.9 mmol/L (3.6-5.0) 03/26/18 21:35 Chloride 101.2 mmol/L (98-107) 03/26/18 21:35 Carbon Dioxide 23 mmol/L (22-30) 03/26/18 21:35 Anion Gap 18 mmol/L 03/26/18 21:35 BUN 15 mg/dL (9-20) 03/26/18 21:35 Creatinine 1.1 mg/dL (0.8-1.5) 03/26/18 21:35 Estimated GFR > 60 ml/min 03/26/18 21:35 BUN/Creatinine Ratio 14 % 03/26/18 21:35 Glucose 104 mg/dL (75-100) H 03/26/18 21:35 POC Glucose 100 (70-105) 03/28/18 06:51 Hemoglobin A1c 6.4 % (4-6) H 03/23/18 23:26 Calcium 9.4 mg/dL (8.4-10.2) 03/26/18 21:35 Magnesium 2.00 mg/dL (1.7-2.3) 03/26/18 21:35 Total Bilirubin 0.70 mg/dL (0.1-1.2) 03/24/18 06:23 AST 29 units/L (5-40) 03/24/18 06:23 ALT 18 units/L (7-56) 03/24/18 06:23 Alkaline Phosphatase 90 units/L (35-129) 03/24/18 06:23 Troponin T < 0.010 ng/mL (0.00-0.029) 03/23/18 15:40 Total Protein 7.7 g/dL (6.3-8.2) 03/24/18 06:23 Albumin 4.0 g/dL (3.9-5) 03/24/18 06:23 Albumin/Globulin Ratio 1.1 % 03/24/18 06:23 Triglycerides 67 mg/dL (2-149) 03/24/18 06:23 Cholesterol 152 mg/dL (50-199) 03/24/18 06:23 LDL Cholesterol Direct 102 mg/dL (50-130) 03/24/18 06:23 HDL Cholesterol 44 mg/dL (40-59) 03/24/18 06:23 Cholesterol/HDL Ratio 3.45 % 03/24/18 06:23
[2018-03-28] MEDS: ASPIRIN PO SCH (18:41)
[2018-03-28] MEDS: PEPCID PO SCH ×2 (18:41→21:49)
[2018-03-28] MEDS: SODIUM CHLORIDE FLUSH SYRINGE 10 ML IV SCH ×2 (18:42→21:51)
[2018-03-28] MEDS: DIOVAN PO SCH (18:46)
[2018-03-28] MEDS: LOPRESSOR PO SCH ×2 (18:47→21:49)
[2018-03-29] MEDS: HumaLOG SUB-Q SCH ×3 (08:35→22:06)
[2018-03-29] MEDS: DIOVAN PO SCH (09:43)
[2018-03-29] MEDS: LOPRESSOR PO SCH ×2 (09:43→22:06)
[2018-03-29] MEDS: PEPCID PO SCH ×2 (09:44→22:06)
[2018-03-29] MEDS: SODIUM CHLORIDE FLUSH SYRINGE 10 ML IV SCH ×2 (09:45→22:06)
[2018-03-29] MEDS: ASPIRIN PO SCH (09:45)
--- NOTE | 2018-03-29 12:09 | Progress Note ---
Assessment and Plan He appears stable from a cardiac standpoint to proceed with his CEA. The patient has been seen in conjunction with Dr. Brito who agrees with the assessment and plan of care. - Patient Problems (1) Acute CVA (cerebrovascular accident) Current Visit: Yes Status: Acute (2) Stenosis of left internal carotid artery with cerebral infarction Current Visit: Yes Status: Acute (3) Hypertension Current Visit: Yes Status: Chronic Qualifiers: Hypertension type: essential hypertension Qualified Code(s): I10 - Essential (primary) hypertension (4) Diabetes mellitus Current Visit: Yes Status: Chronic Qualifiers: Diabetes mellitus type: type 2 Subjective Date of service: 03/29/18 Principal diagnosis: CVA, LICA stenosis Interval history: Pt sitting up at bedside, no current complaints. tele reviewed - SB with HR low of 45bpm noted overnight. Objective Last Vital Signs Temp 98.9 F 03/29/18 07:39 Pulse 61 03/29/18 09:43 Resp 20 03/29/18 07:39 BP 139/58 03/29/18 09:43 Pulse Ox 99 03/29/18 07:39 - Physical Examination General: No Apparent Distress HEENT: Positive: EOMI, Normocephaly, Mucus Membranes Moist Neck: Positive: neck supple, trachea midline Cardiac: Positive: Reg Rate and Rhythm, S1/S2 Lungs: Positive: clear to auscultation Neuro: Positive: Grossly Intact Abdomen: Positive: Soft, Active Bowel Sounds. Negative: Tender Skin: Positive: Clear. Negative: Rash Musculoskeletal: Normal Range of Motion Extremities: Present: normal. Absent: edema - Imaging and Cardiology EKG: report reviewed - Telemetry EKG Rhythm: Sinus Rhythm
--- NOTE | 2018-03-29 13:54 | Progress Note ---
Assessment and Plan Symptomatic left carotid endarterectomy. Cleared for CEA by cardiology. Discussed R,B,and A with the pt. He states understanding and agrees to proceed. - Patient Problems (1) Stenosis of left internal carotid artery with cerebral infarction Current Visit: Yes Status: Acute (2) Diabetes mellitus Current Visit: Yes Status: Chronic Qualifiers: Diabetes mellitus type: type 2 (3) Hypertension Current Visit: Yes Status: Chronic Qualifiers: Hypertension type: essential hypertension Qualified Code(s): I10 - Essential (primary) hypertension Subjective Date of service: 03/29/18 Principal diagnosis: CVA, LICA stenosis Interval history: Pt awake and alert, without new complaint. Objective - Constitutional Vitals: Vital Signs - 12hr 03/29/18 03/29/18 07:39 09:43 Temperature 98.9 F Pulse Rate 56 L 61 Respiratory 20 Rate Blood Pressure 139/59 139/58 O2 Sat by Pulse 99 Oximetry General appearance: Present: no acute distress - EENT Eyes: EOM intact (continued Left eye blurriness) ENT: hearing intact - Respiratory Respiratory effort: normal Extremities: no ischemia - Neurologic Neurologic: other - Psychiatric Psychiatric: appropriate mood/affect, intact judgment & insight, cooperative - Labs CBC & Chem 7: 03/24/18 06:23 03/26/18 21:35 Labs: Abnormal lab results 03/28/18 03/28/18 03/29/18 Range/Units 18:43 21:25 07:51 POC Glucose 129 H 106 H 112 H (70-105)
--- NOTE | 2018-03-29 19:10 | Anesthesia Consultation ---
Anesthesia Consult and Med Hx Date of service: 03/29/18 - Airway ROM Head & Neck: Adequate Mental/Hyoid Distance: Adequate Mallampati Class: Class II Intubation Access Assessment: Probably Good - Pulmonary Exam CTA: Yes - Cardiac Exam Cardiac Exam: RRR - Pre-Operative Health Status ASA Pre-Surgery Classification: ASA4 Proposed Anesthetic Plan: General - Pulmonary Hx Smoking: No Hx Asthma: No COPD: No Hx Pneumonia: No Hx Sleep Apnea: No - Cardiovascular System Hx Hypertension: Yes Hx Coronary Artery Disease: No Hx Heart Attack/AMI: No Hx Angina: No Hx Percutaneous Transluminal Coronary Angioplasty (PTCA): No Hx Internal Defibrillator: No Hx Valvular Heart Disease: No Hx Heart Murmur: No Hx Peripheral Vascular Disease: No - Central Nervous System Hx Seizures: No CVA: Yes (CVA without obvious neurolgic deficits. ? slow cognition/response) Hx Psychiatric Problems: No - Gastrointestinal Hx Ulcer: No - Endocrine Hx Renal Disease: No Hx End Stage Renal Disease: No Hx Cirrhosis: No Hx Liver Disease: No Hx Hypothyroidism: No Hx Hyperthyroidism: No - Hematic Hx Anemia: No Hx Sickle Cell Disease: No - Other Systems Hx Alcohol Use: Yes (occasional) Hx Substance Use: No
--- NOTE | 2018-03-30 07:21 | Progress Note ---
Assessment and Plan Assessment and plan: 72-year-old male With hx of HTN AND DM comes in for dizziness and blurred vision and headache. Some weakness on the right side. Blurred vision in both eyes. Symptoms have been going on for 2 days prior to presentation. Able to walk. No exacerbating or relieving factors. was noted to have lost vision on the left eye and imaging studies showing acute ischemic infarct with a high grade left ICA -Acute ischemic infarct stoke: treat with asa/statin -High grade left ICA stenosis: consulted Vascular, see their note below, also consulted Cardiology for pre-op- For endarectomy in am -hypertension: low salt diet, antihypertensive with parameters prn -newly diagnosis dm type 2 most likely, a1c 6.4: start metformin if renal function is ok and after dye study, no home insulin due to problem with eye sight -Severe malnutrition, bmi 15.9: consult [employer] per Dr. Patricio Bustamante: "72-year-old male with history of diabetes, 5 years of smoking, who presents with headache, vague dizziness, and left-sided partial visual loss with blurred vision over the last few days. Patient denies any weakness or numbness to his upper or lower extremities. Denies visual field cut. Ultrasound demonstrates severe left ICA stenosis with ICA to CCA ratio greater than [address] demonstrates severe left-sided carotid artery stenosis at the bulb greater than 80% with irregularity. On physical exam, patient has no visual field cut, has full strength in upper and lower extremities, denies sensory loss, but does endorse left-sided visual loss. Patient is overall minimally symptomatic from his stroke. MRI demonstrates left-sided caudate and parieto-occipital watershed infarct. 72-year-old male with history of diabetes, 5 years of smoking, who presents with headache, vague dizziness, and left-sided partial visual loss with blurred vision over the last few days. Patient denies any weakness or numbness to his upper or lower extremities. Denies visual field cut. Ultrasound demonstrates severe left ICA stenosis with ICA to CCA ratio greater than [address] demonstrates severe left-sided carotid artery stenosis at the bulb greater than 80% with irregularity. MRI demonstrates left-sided caudate and parieto-occipital watershed infarct. Patient has a symptomatic left sided internal carotid artery lesion which is greater than 80% narrowed. He has a minor stroke. Discussed standard of care with patient which would be left-sided carotid endarterectomy after cardiac clearance. Patient understands. Risks, benefits, and alternatives discussed. Patient requires cardiac clearance. Continue antiplatelet and anti-statin therapy. Plan for endarterectomy this upcoming week." History Interval history: Patient seen and examined in no acute distress. Resting comfortably. Hospitalist Physical - Physical exam Narrative exam: GEN: WDWN, NAD, Awake, Alert, Orientated x 3 HEENT: NCAT, EOMI, PERRL, OP Clear NECK: supple, no adenopathy, no thyromegaly, no JVD CVS/HEART: RRR, normal S1S2, pulses present bilaterally CHEST/LUNGS: CTA B, Symmetrical chest expansion, good air entry bilaterally GI/Abdomen: soft, NTND, good bowel sounds, no guarding or rebound /Bladder: no suprapubic tenderness, no CVA or paraspinal tenderness EXT/Skin: no c/c/e, no obvious rash MSK: FROM x 4 Neuro: CN 2-12 grossly intact, no new focal deficits Psych: calm - Constitutional Vitals: Temp Pulse Resp BP Pulse Ox 97.4 F L 69 18 117/73 100 03/30/18 00:00 03/30/18 00:00 03/30/18 00:00 03/30/18 00:00 03/30/18 00:00 General appearance: Present: no acute distress Results - Labs CBC & Chem 7: 03/24/18 06:23 03/26/18 21:35 Labs: Laboratory Last Values WBC 6.1 K/mm3 (4.5-11.0) 03/24/18 06:23 RBC 5.40 M/mm3 (3.65-5.03) H 03/24/18 06:23 Hgb 14.8 gm/dl (11.8-15.2) 03/24/18 06:23 Hct 43.5 % (35.5-45.6) 03/24/18 06:23 MCV 81 fl (84-94) L 03/24/18 06:23 MCH 28 pg (28-32) 03/24/18 06:23 MCHC 34 % (32-34) 03/24/18 06:23 RDW 15.8 % (13.2-15.2) H 03/24/18 06:23 Plt Count 238 K/mm3 (140-440) 03/24/18 06:23 Lymph % (Auto) 32.4 % (13.4-35.0) 03/24/18 06:23 [place] % (Auto) 11.7 % (0.0-7.3) H 03/24/18 06:23 Eos % (Auto) 1.9 % (0.0-4.3) 03/24/18 06:23 Baso % (Auto) 0.8 % (0.0-1.8) 03/24/18 06:23 Lymph # 2.0 K/mm3 (1.2-5.4) 03/24/18 06:23 [place] # 0.7 K/mm3 (0.0-0.8) 03/24/18 06:23 Eos # 0.1 K/mm3 (0.0-0.4) 03/24/18 06: Baso # 0.0 K/mm3 (0.0-0.1) 03/24/18 06:23 Seg Neutrophils % 53.2 % (40.0-70.0) 03/24/18 06:23 Seg Neutrophils # 3.3 K/mm3 (1.8-7.7) 03/24/18 06:23 PT 14.2 Sec. (12.2-14.9) 03/23/18 15:40 INR 1.05 (0.87-1.13) 03/23/18 15:40 APTT 31.0 Sec. (24.2-36.6) 03/23/18 15:40 Thrombin Time 17.3 Sec. (15.1-19.6) 03/23/18 15:40 Sodium 138 mmol/L (137-145) 03/26/18 21:35 Potassium 3.9 mmol/L (3.6-5.0) 03/26/18 21:35 Chloride 101.2 mmol/L (98-107) 03/26/18 21:35 Carbon Dioxide 23 mmol/L (22-30) 03/26/18 21:35 Anion Gap 18 mmol/L 03/26/18 21:35 BUN 15 mg/dL (9-20) 03/26/18 21:35 Creatinine 1.1 mg/dL (0.8-1.5) 03/26/18 21:35 Estimated GFR > 60 ml/min 03/26/18 21:35 BUN/Creatinine Ratio 14 % 03/26/18 21:35 Glucose 104 mg/dL (75-100) H 03/26/18 21:35 POC Glucose 115 (70-105) H 03/30/18 06:21 Hemoglobin A1c 6.4 % (4-6) H 03/23/18 23:26 Calcium 9.4 mg/dL (8.4-10.2) 03/26/18 21:35 Magnesium 2.00 mg/dL (1.7-2.3) 03/26/18 21:35 Total Bilirubin 0.70 mg/dL (0.1-1.2) 03/24/18 06:23 AST 29 units/L (5-40) 03/24/18 06:23 ALT 18 units/L (7-56) 03/24/18 06:23 Alkaline Phosphatase 90 units/L (35-129) 03/24/18 06:23 Troponin T < 0.010 ng/mL (0.00-0.029) 03/23/18 15:40 Total Protein 7.7 g/dL (6.3-8.2) 03/24/18 06:23 Albumin 4.0 g/dL (3.9-5) 03/24/18 06:23 Albumin/Globulin Ratio 1.1 % 03/24/18 06:23 Triglycerides 67 mg/dL (2-149) 03/24/18 06:23 Cholesterol 152 mg/dL (50-199) 03/24/18 06:23 LDL Cholesterol Direct 102 mg/dL (50-130) 03/24/18 06:23 HDL Cholesterol 44 mg/dL (40-59) 03/24/18 06:23 Cholesterol/HDL Ratio 3.45 % 03/24/18 06:23
[2018-03-30] MEDS ORDERED: ANCEF/STERILE WATER 2 GM/20 ML 2 GM/20 ML SYRINGE IV NR (08:00)
--- NOTE | 2018-03-30 10:16 | Cat Scan Report ---
CT scan of head without IV contrast: History: stroke. Findings: Ventricles are normal in size and midline in location. No evidence of acute ischemic, hemorrhage or mass. No extra-axial fluid collection. Focal area of low attenuation left periventricular region probably from chronic lacunar infarct. Impression: No evidence of acute ischemic hemorrhage. Nurse Shane was informed of the findings at 10:09 AM on 03/30/18. [id number]
[2018-03-30] MEDS: PEPCID PO SCH ×2 (10:20→21:23)
[2018-03-30] MEDS: DIOVAN PO SCH (10:20)
[2018-03-30] MEDS: ASPIRIN PO SCH (10:20)
[2018-03-30] MEDS: LOPRESSOR PO SCH ×2 (10:20→21:22)
[2018-03-30] MEDS ORDERED: HEPARIN/ 0.45% NACL-25,000 UNIT/500 ML 25,000 UNIT/500 ML BAG IV SCH (11:00)
[2018-03-30] MEDS: HumaLOG SUB-Q SCH ×3 (11:30→22:00)
--- NOTE | 2018-03-30 11:33 | Cat Scan Report ---
FINAL REPORT EXAM: CT ANGIO HEAD HISTORY: IF CT HEAD NEGATIVE FOR Hemorrhage TECHNIQUE: CTA of the Head and Neck with IV contrast. Coronal and sagittal reconstructed imaging provided. Carotid stenosis calculated by the NASCET method. PRIORS: None currently available. FINDINGS: HEAD: Soft and calcified plaque at both cavernous carotids. On the left there is 40-50 percent narrowing and 30-40 percent narrowing on the right. The anterior and posterior circulations appear unremarkable. No aneurysm, dissection, vascular malformation or evidence for vasculitis. NECK: Horizontal aorta is unremarkable. Major branch arteries unremarkable. RIGHT CAROTID: Origin: Unremarkable. Common: Unremarkable. Bifurcation: Calcified plaque. 10 percent narrowing. Internal: Unremarkable. External: Unremarkable. No aneurysm, dissection, vascular malformation or evidence for vasculitis. LEFT CAROTID: Origin: Unremarkable. Common: Unremarkable. Bifurcation: Mostly calcified plaque. 70-80 percent narrowing. Internal: 70-80 percent narrowing extending from the bifurcation. External: Unremarkable. No aneurysm, dissection, vascular malformation or evidence for vasculitis. VERTEBRALS: Equally dominant. Mild disease at the left vertebral artery origin. No aneurysm, dissection, vascular malformation or evidence for vasculitis. IMPRESSION: Significant stenosis at the left cavernous carotid, left carotid bifurcation, and left proximal ICA.
--- NOTE | 2018-03-30 11:33 | Cat Scan Report ---
FINAL REPORT EXAM: CT ANGIO NECK HISTORY: IF CT HEAD NEGATIVE FOR HEMORRAGE TECHNIQUE: CTA of the Head and Neck with IV contrast. Coronal and sagittal reconstructed imaging provided. Carotid stenosis calculated by the NASCET method. PRIORS: None currently available. FINDINGS: HEAD: Soft and calcified plaque at both cavernous carotids. On the left there is 40-50 percent narrowing and 30-40 percent narrowing on the right. The anterior and posterior circulations appear unremarkable. No aneurysm, dissection, vascular malformation or evidence for vasculitis. NECK: Horizontal aorta is unremarkable. Major branch arteries unremarkable. RIGHT CAROTID: Origin: Unremarkable. Common: Unremarkable. Bifurcation: Calcified plaque. 10 percent narrowing. Internal: Unremarkable. External: Unremarkable. No aneurysm, dissection, vascular malformation or evidence for vasculitis. LEFT CAROTID: Origin: Unremarkable. Common: Unremarkable. Bifurcation: Mostly calcified plaque. 70-80 percent narrowing. Internal: 70-80 percent narrowing extending from the bifurcation. External: Unremarkable. No aneurysm, dissection, vascular malformation or evidence for vasculitis. VERTEBRALS: Equally dominant. Mild disease at the left vertebral artery origin. No aneurysm, dissection, vascular malformation or evidence for vasculitis. IMPRESSION: Significant stenosis at the left cavernous carotid, left carotid bifurcation, and left proximal ICA.
[2018-03-30 12:04] LABS: Hematocrit 44.1 % (35.5-45.6)
[2018-03-30 12:15] LABS: INR 1.1 (0.87-1.13)
[2018-03-30 12:16] LABS: Partial Thromboplastin Time 30.9 Sec. (24.2-36.6)
[2018-03-30] MEDS ORDERED: HEPARIN 10,000 UNITS/10 ML ONE (13:56)
[2018-03-30] MEDS ORDERED: MARCAINE 0.5% 30 ML INFILTRATI ONE (13:56)
[2018-03-30] MEDS ORDERED: XYLOCAINE 1% 20 mL ONE (13:57)
[2018-03-30] MEDS ORDERED: NACL 0.9% 500 ML 500 ML ONE (13:57)
[2018-03-30] MEDS ORDERED: PROTAMINE SULFATE ONE (13:57)
[2018-03-30] MEDS ORDERED: PAPAVERINE ONE (13:57)
[2018-03-30] MEDS: NACL 0.9% 1000 ML 1,000 ML IV SCH ×2 (14:15→21:32)
--- NOTE | 2018-03-30 14:22 | Progress Note ---
Assessment and Plan Assessment and plan: 72-year-old male With hx of HTN AND DM comes in for dizziness and blurred vision and headache. Some weakness on the right side. Blurred vision in both eyes. Symptoms have been going on for 2 days prior to presentation. Able to walk. No exacerbating or relieving factors. was noted to have lost vision on the left eye and imaging studies showing acute ischemic infarct with a high grade left ICA -Acute ischemic infarct stoke: treat with asa/statin -Acute Encephalopathy-stat repeat CAT scan was negative -?Afib-we'll check EKG -High grade left ICA stenosis: consulted Vascular, see their note below, also consulted Cardiology for pre-op- For endarectomy today. Will start patient on heparin drip. -hypertension: low salt diet, antihypertensive with parameters prn -newly diagnosis dm type 2 most likely, a1c 6.4: start metformin if renal function is ok and after dye study, no home insulin due to problem with eye sight -Severe malnutrition, bmi 15.9: consult [employer] Manager per Dr. Patricio Bustamante: "72-year-old male with history of diabetes, 5 years of smoking, who presents with headache, vague dizziness, and left-sided partial visual loss with blurred vision over the last few days. Patient denies any weakness or numbness to his upper or lower extremities. Denies visual field cut. Ultrasound demonstrates severe left ICA stenosis with ICA to CCA ratio greater than [address] demonstrates severe left-sided carotid artery stenosis at the bulb greater than 80% with irregularity. On physical exam, patient has no visual field cut, has full strength in upper and lower extremities, denies sensory loss, but does endorse left-sided visual loss. Patient is overall minimally symptomatic from his stroke. MRI demonstrates left-sided caudate and parieto-occipital watershed infarct. 72-year-old male with history of diabetes, 5 years of smoking, who presents with headache, vague dizziness, and left-sided partial visual loss with blurred vision over the last few days. Patient denies any weakness or numbness to his upper or lower extremities. Denies visual field cut. Ultrasound demonstrates severe left ICA stenosis with ICA to CCA ratio greater than [address] demonstrates severe left-sided carotid artery stenosis at the bulb greater than 80% with irregularity. MRI demonstrates left-sided caudate and parieto-occipital watershed infarct. Patient has a symptomatic left sided internal carotid artery lesion which is greater than 80% narrowed. He has a minor stroke. Discussed standard of care with patient which would be left-sided carotid endarterectomy after cardiac clearance. Patient understands. Risks, benefits, and alternatives discussed. Patient requires cardiac clearance. Continue antiplatelet and anti-statin therapy. Plan for endarterectomy this upcoming week." The high probability of a clinically significant, sudden or life threatening deterioration of the [state editor] system(s) required my full and direct attention, intervention and personal management. The aggregate critical care time was [45] minutes. This time is in addition to time spent performing reported procedures but includes the following: [xx] Data Review and interpretation [x] Patient assessment and monitoring of vital signs [x] Documentation [x] Medication orders and management History Interval history: Code metastases called this morning because patient was altered. Walked into the bathroom but was even difficult to work and back and could not answer questions that he normally would set appropriately. Hospitalist Physical - Physical exam Narrative exam: GEN: WDWN, NAD, Awake, Alert, Orientated x 3 HEENT: NCAT, EOMI, PERRL, OP Clear NECK: supple, no adenopathy, no thyromegaly, no JVD CVS/HEART: RRR, normal S1S2, pulses present bilaterally CHEST/LUNGS: CTA B, Symmetrical chest expansion, good air entry bilaterally GI/Abdomen: soft, NTND, good bowel sounds, no guarding or rebound /Bladder: no suprapubic tenderness, no CVA or paraspinal tenderness EXT/Skin: no c/c/e, no obvious rash MSK: FROM x 4 Neuro: Confused. Ataxic gait. Psych: calm - Constitutional Vitals: Temp Pulse Resp BP Pulse Ox 97.5 F L 65 16 151/86 97 03/30/18 13:42 03/30/18 13:42 03/30/18 13:42 03/30/18 13:42 03/30/18 13:42 General appearance: Present: no acute distress Results - Labs CBC & Chem 7: 03/31/18 04:43 03/31/18 04:43 Labs: Laboratory Last Values WBC 6.1 K/mm3 (4.5-11.0) 03/24/18 06:23 RBC 5.40 M/mm3 (3.65-5.03) H 03/24/18 06:23 Hgb 15.0 gm/dl (11.8-15.2) 03/30/18 09:20 Hct 44.1 % (35.5-45.6) 03/30/18 09:20 MCV 81 fl (84-94) L 03/24/18 06:23 MCH 28 pg (28-32) 03/24/18 06:23 MCHC 34 % (32-34) 03/24/18 06:23 RDW 15.8 % (13.2-15.2) H 03/24/18 06:23 Plt Count 235 K/mm3 (140-440) 03/30/18 09:20 Lymph % (Auto) 32.4 % (13.4-35.0) 03/24/18 06:23 [place] % (Auto) 11.7 % (0.0-7.3) H 03/24/18 06:23 Eos % (Auto) 1.9 % (0.0-4.3) 03/24/18 06:23 Baso % (Auto) 0.8 % (0.0-1.8) 03/24/18 06:23 Lymph # 2.0 K/mm3 (1.2-5.4) 03/24/18 06:23 [place] # 0.7 K/mm3 (0.0-0.8) 03/24/18 06:23 Eos # 0.1 K/mm3 (0.0-0.4) 03/24/18 06:23 Baso # 0.0 K/mm3 (0.0-0.1) 03/24/18 06:23 Seg Neutrophils % 53.2 % (40.0-70.0) 03/24/18 06:23 Seg Neutrophils # 3.3 K/mm3 (1.8-7.7) 03/24/18 06:23 PT 14.8 Sec. (12.2-14.9) 03/30/18 09:20 INR 1.10 (0.87-1.13) 03/30/18 09:20 APTT 30.9 Sec. (24.2-36.6) 03/30/18 09:20 Thrombin Time 17.3 Sec. (15.1-19.6) 03/23/18 15:40 Sodium 138 mmol/L (137-145) 03/26/18 21:35 Potassium 3.9 mmol/L (3.6-5.0) 03/26/18 21:35 Chloride 101.2 mmol/L (98-107) 03/26/18 21:35 Carbon Dioxide 23 mmol/L (22-30) 03/26/18 21:35 Anion Gap 18 mmol/L 03/26/18 21:35 BUN 15 mg/dL (9-20) 03/26/18 21:35 Creatinine 1.1 mg/dL (0.8-1.5) 03/26/18 21:35 Estimated GFR > 60 ml/min 03/26/18 21:35 BUN/Creatinine Ratio 14 % 03/26/18 21:35 Glucose 104 mg/dL (75-100) H 03/26/18 21:35 POC Glucose 121 (70-105) H 03/30/18 09:26 Hemoglobin A1c 6.4 % (4-6) H 03/23/18 23:26 Calcium 9.4 mg/dL (8.4-10.2) 03/26/18 21:35 Magnesium 2.00 mg/dL (1.7-2.3) 03/26/18 21:35 Total Bilirubin 0.70 mg/dL (0.1-1.2) 03/24/18 06:23 AST 29 units/L (5-40) 03/24/18 06:23 ALT 18 units/L (7-56) 03/24/18 06:23 Alkaline Phosphatase 90 units/L (35-129) 03/24/18 06:23 Troponin T < 0.010 ng/mL (0.00-0.029) 03/23/18 15:40 Total Protein 7.7 g/dL (6.3-8.2) 03/24/18 06:23 Albumin 4.0 g/dL (3.9-5) 03/24/18 06:23 Albumin/Globulin Ratio 1.1 % 03/24/18 06:23 Triglycerides 67 mg/dL (2-149) 03/24/18 06:23 Cholesterol 152 mg/dL (50-199) 03/24/18 06:23 LDL Cholesterol Direct 102 mg/dL (50-130) 03/24/18 06:23 HDL Cholesterol 44 mg/dL (40-59) 03/24/18 06:23 Cholesterol/HDL Ratio 3.45 % 03/24/18 06:23
[2018-03-30] MEDS ORDERED: ZEMURON IV ONE (14:27)
[2018-03-30] MEDS ORDERED: XYLOCAINE CARDIAC IV ONE (14:27)
[2018-03-30] MEDS ORDERED: DECADRON ONE (14:27)
[2018-03-30] MEDS ORDERED: ZOFRAN ONE (14:27)
[2018-03-30] MEDS ORDERED: QUELICIN ONE (14:27)
[2018-03-30] MEDS ORDERED: DIPRIVAN 10 MG/ML IV ONE (14:28)
[2018-03-30] MEDS ORDERED: SUBLIMAZE ONE (14:28)
--- NOTE | 2018-03-30 14:34 | Consultation ---
History of Present Illness Consult date: 03/30/18 Requesting physician: JOSELINE MAZA Reason for consult: other (Acute CVA) History of present illness: Medical records "72-year-old male with history of diabetes, 5 years of smoking, who presents with headache, vague dizziness, and left-sided partial visual loss with blurred vision over the last few days. Patient denies any weakness or numbness to his upper or lower extremities. Denies visual field cut. Ultrasound demonstrates severe left ICA stenosis with ICA to CCA ratio greater than [address] demonstrates severe left-sided carotid artery stenosis at the bulb greater than 80% with irregularity. On physical exam, patient has no visual field cut, has full strength in upper and lower extremities, denies sensory loss, but does endorse left-sided visual loss. Patient is overall minimally symptomatic from his stroke. MRI demonstrates left-sided caudate and parieto-occipital watershed infarct. Patient has a symptomatic left sided internal carotid artery lesion which is greater than 80% narrowed. He has a minor stroke. Discussed standard of care with patient which would be left-sided carotid endarterectomy after cardiac clearance. Patient understands. Risks, benefits, and alternatives discussed. Patient requires cardiac clearance. Continue antiplatelet and anti-statin therapy. Plan for endarterectomy this upcoming week." 72-year-old male With hx of HTN AND DM comes in for dizziness and blurred vision and headache. Some weakness on the right side. Blurred vision in both eyes. Symptoms have been going on for 2 days prior to presentation. Able to walk. No exacerbating or relieving factors. was noted to have lost vision on the left eye and imaging studies showing acute ischemic infarct with a high grade left ICA. Was planned for endarterectomy today, when he was noted to have new neurologic symptoms, weakness, blurring of vision. A repeat CT head done did not show any new events. He has been transferred to the ICU for closer monitoring. I have been consulted for ICU care Patient was seen and examined. Vitals, labs, medications, chart and imaging reviewed. Discussed in ICU-IDT rounds. Discussed with vascular service..will proceed with endarterectomy this afternoon Review of systems Constitutional: denies: chills, fever, has headaches Eyes: denies: eye pain, eye discharge, has vision change ENT: denies: ear pain, throat pain Respiratory: denies: cough, shortness of breath, wheezing Cardiovascular: denies: chest pain, palpitations Endocrine: no symptoms reported Gastrointestinal: denies: abdominal pain, nausea, diarrhea Genitourinary: denies: urgency, dysuria Musculoskeletal: denies: back pain, joint swelling, arthralgia Skin: denies: rash, lesions Neurological: as per HPI, headache. denies: weakness, paresthesias Psychiatric: denies: anxiety, depression Hematological/Lymphatic: denies: easy bleeding, easy bruising Past History Past Medical History: hypertension Past Surgical History: No surgical history Social history: smoking (no longer actively smoking, 5 years past exposure). denies: alcohol abuse, prescription drug abuse Family history: hypertension Medications and Allergies Allergies Allergy/AdvReac Type Severity Reaction Status Date / Time No Known Allergies Allergy Unverified 09/23/16 10:27 Home Medications Medication Instructions Recorded Confirmed Last Taken Type No Known Home Medications [No 03/24/18 03/24/18 Unknown History Reported Home Medications] Active Meds: Active Medications Acetaminophen (Tylenol) 650 mg PO Q4H PRN PRN Reason: Pain, Mild (1-3) Aspirin (Aspirin) 325 mg PO QDAY [facility] Last Admin: 03/29/18 09:45 Dose: Not Given Atorvastatin Calcium (Lipitor) 80 mg PO QHS [facility] Last Admin: 03/29/18 22:05 Dose: 80 mg Bisacodyl (Dulcolax) 10 mg AR QDAY PRN PRN Reason: Constipation Dextrose (D50w (25gm) Syringe) 50 ml IV PRN PRN PRN Reason: Hypoglycemia Famotidine (Pepcid) 20 mg PO BID [facility] Last Admin: 03/29/18 22:06 Dose: 20 mg Hydralazine HCl (Apresoline) 10 mg IV Q6H PRN PRN Reason: Keep SBP between 160-185 mm Hg Last Admin: 03/26/18 18:33 Dose: 10 mg Hydromorphone HCl (Dilaudid) 0.5 mg IV Q3H PRN PRN Reason: Pain , Severe (7-10) Heparin Sodium/Sodium Chloride (Heparin/ 0.45% Nacl-25,000 Unit/500 Ml) 25,000 unit in 500 mls @ 27 mls/hr IV TITR [place]; Protocol Sodium Chloride (Nacl 0.9% 1000 Ml) 1,000 mls @ 100 mls/hr IV DIRECT [facility] Stop: 03/30/18 23:59 Last Admin: 03/30/18 14:15 Dose: 100 mls/hr Insulin Human Lispro (Humalog) 0 unit SUB-Q ACHS [facility]; Protocol Last Admin: 03/29/18 22:06 Dose: Not Given Magnesium Hydroxide (Milk Of Magnesia) 30 ml PO Q4H PRN PRN Reason: Constipation Metoclopramide HCl (Reglan) 10 mg PO Q6H PRN PRN Reason: Nausea And Vomiting Metoprolol Tartrate (Lopressor) 50 mg PO BID [facility] Last Admin: 03/29/18 22:06 Dose: 50 mg Ondansetron HCl (Zofran) 4 mg IV Q8H PRN PRN Reason: Nausea And Vomiting Oxycodone/Acetaminophen (Percocet 5/325) 1 tab PO Q6H PRN PRN Reason: Pain, Moderate (4-6) Promethazine HCl (Phenergan) 25 mg AR Q6H PRN PRN Reason: Nausea And Vomiting Sodium Chloride (Sodium Chloride Flush Syringe 10 Ml) 10 ml IV BID [facility] Last Admin: 03/29/18 22:06 Dose: 10 ml Sodium Chloride (Sodium Chloride Flush Syringe 10 Ml) 10 ml IV PRN PRN PRN Reason: LINE FLUSH Last Admin: 03/26/18 05:25 Dose: 10 ml Valsartan (Diovan) 160 mg PO DAILY [facility] Last Admin: 03/29/18 09:43 Dose: 160 mg Zolpidem Tartrate (Ambien) 5 mg PO QHS PRN PRN Reason: Insomnia Physical Examination Vital signs: Vital Signs Temp Pulse Resp BP Pulse Ox 98.6 F 66 16 167/87 99 03/23/18 15:30 03/23/18 15:30 03/23/18 15:30 03/23/18 15:30 03/23/18 15:30 GEN: WDWN, NAD, Awake, Alert, Orientated x 3 HEENT: NCAT, EOMI, PERRL, OP Clear NECK: supple, no adenopathy, no thyromegaly, no JVD CVS/HEART: RRR, normal S1S2, pulses present bilaterally CHEST/LUNGS: CTA B, Symmetrical chest expansion, good air entry bilaterally GI/Abdomen: Soft, NTND, good bowel sounds, no guarding or rebound /Bladder: no suprapubic tenderness, no CVA or paraspinal tenderness EXT/Skin: no c/c/e, no obvious rash MSK: FROM x 4 Neuro: Visual field defect, non focal motor or sensory deficits Psych: calm Results - Laboratory Findings CBC and BMP: 03/30/18 09:20 03/26/18 21:35 PT/INR, D-dimer PT 14.8 Sec. (12.2-14.9) 03/30/18 09:20 INR 1.10 (0.87-1.13) 03/30/18 09:20 Abnormal lab findings: Abnormal Labs 03/23/18 03/23/18 03/23/18 15:40 15:40 23:26 RBC 5.75 H Hct 46.9 H MCV 82 L MCH 26 L RDW 15.4 H [place] % (Auto) 9.0 H Chloride 96.4 L Glucose 119 H POC Glucose Hemoglobin A1c 6.4 H 03/24/18 03/24/18 03/25/18 06:23 06:23 06:41 RBC 5.40 H Hct MCV 81 L MCH RDW 15.8 H [place] % (Auto) 11.7 H Chloride Glucose 105 H POC Glucose 109 H Hemoglobin A1c 03/25/18 03/25/18 03/26/18 11:51 16:28 07:42 RBC Hct MCV MCH RDW [place] % (Auto) Chloride Glucose POC Glucose 106 H 140 H 114 H Hemoglobin A1c 03/26/18 03/27/18 03/27/18 21:35 12:35 22:22 RBC Hct MCV MCH RDW [place] % (Auto) Chloride Glucose 104 H POC Glucose 156 H 110 H Hemoglobin A1c 03/28/18 03/28/18 03/29/18 18:43 21:25 07:51 RBC Hct MCV MCH RDW [place] % (Auto) Chloride Glucose POC Glucose 129 H 106 H 112 H Hemoglobin A1c 03/29/18 03/29/18 03/30/18 11:59 21:47 06:21 RBC Hct MCV MCH RDW [place] % (Auto) Chloride Glucose POC Glucose 107 H 110 H 115 H Hemoglobin A1c 03/30/18 09:26 RBC Hct MCV MCH RDW [place] % (Auto) Chloride Glucose POC Glucose 121 H Hemoglobin A1c Assessment and Plan -Acute ischemic infarct stroke, with TIAs and recurrent neurologic events: -High grade left ICA stenosis: -Hypertension: -Type 2 DM -Severe malnutrition, bmi 15.9 -Close neurologic monitoring, q2h neurochecks -Secondary stroke prophylaxis -Keep NPO for end arterectomy this afternoon -Glycemic control -Nutrition to follow for protein calorie malnutrition -Discussed with the vascular service -2D echocardiogram if none done in the last 6 months -Post operatively will need tight BP control systolic 120-150 and diastolic 60- 85 to prevent hemorrhagic transformation of strokes and reperfusion injuiry Critical care time in (mins) excluding proc time.: 35 Critical care attestation.: If time is entered above; I have spent that time in minutes in the direct care of this critically ill patient, excluding procedure time.
[2018-03-30] MEDS ORDERED: XYLOCAINE 1% MPF 5 mL ONE (15:09)
[2018-03-30] MEDS ORDERED: ePHEDrine SULFATE ONE (15:23)
[2018-03-30] MEDS ORDERED: HEPARIN 10,000 UNITS/10 ML 2,000 UNIT in NACL 0.9% 500 ML 500 ML IR ONE (15:33)
--- NOTE | 2018-03-30 15:44 | Vascular Lab Report ---
CAROTID DUPLEX STUDY: RIGHT PSVEDV CCA PROX:6314 CCA DIST:9221 ICA PROX:9516 ICA MID:8620 ICA DIST:6522 ECA: 93 VERT: 41 10 LEFT PSVEDV CCA PROX:6212 CCA DIST:4112 ICA PROX:67800 ICA MID:6213 ICA DIST:5416 ECA: 136 VERT: 69 17 REASON FOR EXAM: Stroke. COMMENTS ON THE RIGHT: Doppler frequency analysis is consistent with 16 to 49 percent diameter reduction of the internal carotid artery. A moderate amount of plaque is seen. There is calcification. The common carotid artery is patent. The external carotid artery is patent. The vertebral artery has antegrade flow. COMMENTS ON THE LEFT: Doppler frequency analysis is consistent with 80 to 99 percent diameter reduction of the internal carotid artery. A large amount of extensive plaque is seen. The common carotid artery is patent. The external carotid artery is patent. The vertebral artery has antegrade flow. IMPRESSION: 80 and 99% diameter reduction in the left internal carotid artery. A large amount of calcified plaque is identified. 16 -49% diameter reduction the right internal carotid artery but eccentric calcified plaque is seen. Recommend CT angiography for further evaluation.
[2018-03-30] MEDS ORDERED: ROBINUL ONE (15:47)
[2018-03-30] MEDS ORDERED: NEO SYNEPHRINE/NS Syringe(OR USE) IV ONE (15:47)
[2018-03-30] MEDS ORDERED: NEOSTIGMINE ONE (15:47)
[2018-03-30] MEDS ORDERED: NACL 0.9% IR ONE (15:52)
[2018-03-30] MEDS ORDERED: MARCAINE 0.5% INFILTRATI ONE (15:52)
[2018-03-30] MEDS ORDERED: PROTAMINE SULFATE IV ONE (17:04)
[2018-03-30] MEDS ORDERED: DILAUDID IV PRN (17:21)
[2018-03-30] MEDS ORDERED: BREVIBLOC IV ONE (17:44)
[2018-03-30] MEDS ORDERED: NEO SYNEPHRINE ONE (17:51)
[2018-03-30] MEDS ORDERED: NARCAN 0.4 MG/1 ML IV PRN (17:55)
[2018-03-30] MEDS ORDERED: ANCEF/NS 1 GM/50 ML 1 GM/50 ML BAG IV SCH (18:00)
[2018-03-30] MEDS ORDERED: NIPRIDE 50 MG in D5W 248 ML IV SCH (18:00)
[2018-03-30] MEDS ORDERED: INTROPIN DRIP 800 MG/D5W 250 ML 800 MG/250 ML BAG IV SCH (18:00)
[2018-03-30] MEDS ORDERED: NACL 0.9% 1000 ML 1,000 ML IV SCH (18:00)
--- NOTE | 2018-03-30 18:09 | Anesthesia Day of Surgery ---
Anesthesia Day of Surgery - Day of Surgery Patient Examined: Yes Patient H&P Reviewed: Yes Patient is NPO: Yes Beta Blockers: Yes Cardiac Clearance: Yes
--- NOTE | 2018-03-30 18:09 | Post Anesthesia Evaluation ---
- Post Anesthesia Evaluation Patient Participated: Yes Airway Patent: Yes Stable Respiratory Function: Yes Nausea/Vomiting: No Temp > 96.8F: Yes Pain Manageable: Yes Adequeate Hydration: Yes Anesthesia Complications: No Block Receding Appropriately: Not Applicable Patient on Ventilator: No
--- NOTE | 2018-03-30 18:13 | Post Operative Note ---
Pre-op diagnosis: symptomatic left carotid stenosis Post-op diagnosis: same Findings: Irregular heavily calcified occlusive stenosis in the carotid bulb fresh thrombus noted on the surface. Adequate backbleeding therefore no shunt used during the procedure. Sharp a duplex scan shows excellent flow with resolution of preoperative elevated velocities. The patient was moving all 4 extremities well. Procedure: Left Carotid endarterectomy, dacron patch angioplasty, intraoperative duplex scan Anesthesia: GETA Surgeon: ELLIE LEZAMA Flakeboard Line Tender: DEVON THOMAS Estimated blood loss: 50-100ml Pathology: list (plaque) Specimen disposition: to lab Condition: stable Disposition: ICU
--- NOTE | 2018-03-30 18:18 | Operative Report ---
Operative Report Operative Report: Date of procedure:03/30/2018 Pre-operative diagnosis: Symptomatic carotid stenosis Post-operative diagnosis: Same Procedure name(s): Left carotid endarterectomy, Dacron patch angioplasty, intraoperative duplex scan Surgeon: Elder Hanson MD [place] Counselor: Navneet Cueva PA-C Anesthesia: Gen. EBL: 75 mL Specimen(s): Plaque Complications: None Findings: Highly irregular ulcerated calcified preocclusive left carotid bulb stenosis with fresh thrombus Procedure:Patient in the supine position after adequate levels of general endotracheal anesthesia was obtained the patient's head was rotated to the right and the left anterior neck was prepped and draped using standard sterile technique. A standard anterior sternocleidomastoid incision was made and carried down through the subcutaneous tissue the dissection was then carried anterior to the sternocleidomastoid through the platysma and a dissection plane was developed until the carotid sheath was encountered. The sheath was then entered and the jugular vein were swept laterally. The facial vein was divided. The vagus nerve was identified and preserved. Sequentially the common carotid external carotid and then the internal carotid arteries were delineated from the surrounding tissue and encircled using vessel loops. The hypoglossal nerve was not identified. The patient was then heparinized and after appropriate delay the vessels were occluded. A longitudinal arteriotomy was then made in the distal common and extended through the internal carotid artery plaque. Backbleeding was assessed and was felt to be adequate therefore no shunt was used. A high grade carotid stenosis was encountered with a large macro ulceration and fresh thrombus. A standard endarterectomy including an external eversion endarterectomy was performed. Loose debris was removed. Several distal tacking sutures were applied. The arteriotomy was then closed using a dacryon patch,double tapered configuration, four needle technique. Prior to completion of the suture line, antegrade and retrograde flushing was performed. The suture line was then completed and air was evacuated by retrograde ICA filling. The ICA was reoccluded and antegrade flow was initially established into the external carotid artery. It was subsequently released to the ICA. Patient tolerated declamping without difficulty. Hemostasis was obtained using Instat, protamine and counterpressure. Intraoperative duplex scan was performed which showed excellent antegrade flow, complete resolution of the high-grade velocities and no loose debris. The incision was then blocked using 30 mL of Marcaine The incision was then closed using 3-0 Vicryl subcutaneous and 4-0 Monocryl subcuticular. The skin was then reapproximated using Dermabond] Patient was then returned to the supine position and extubated and returned to the recovery room in a stable condition having tolerated the procedure well. Sponge and needle counts were correct.
[2018-03-30] MEDS: ceFAZolin 1 GM in NACL 0.9% 20 ML IV SCH (20:58)
[2018-03-30] MEDS: COLACE PO SCH (21:23)
[2018-03-30] MEDS: SODIUM CHLORIDE FLUSH SYRINGE 10 ML IV SCH (21:25)
[2018-03-31] MEDS: ceFAZolin 1 GM in NACL 0.9% 20 ML IV SCH (03:24)
[2018-03-31 05:07] LABS: Hematocrit 42.2 % (35.5-45.6); Hemoglobin 14.4 gm/dl (11.8-15.2); Mean Corpuscular HGB Conc 34 % (32-34); Mean Corpuscular Hemoglobin 28 pg (28-32); Mean Corpuscular Volume 81 fl (84-94); Platelet Count 221 K/mm3 (140-440); Red Blood Count 5.22 M/mm3 (3.65-5.03); Red Cell Distribution Width 15.2 % (13.2-15.2)
[2018-03-31 05:32] LABS: BUN/Creatinine Ratio 12; Blood Urea Nitrogen 13 mg/dL (9-20); Calcium 8.8 mg/dL (8.4-10.2); Hemolysis Index 1
[2018-03-31] MEDS: HumaLOG SUB-Q SCH ×5 (07:20→22:25)
--- NOTE | 2018-03-31 10:16 | Progress Note ---
Assessment and Plan S/p left CEA yesterday. BPs are elevated this AM - however, pt has not had his AM medications and did not receive lopressor or losartan yesterday due to NPO status. Resume current regimen and monitor response. Follow vascular recs. The patient has been seen in conjunction with Dr. Pilar Atkins who agrees with the assessment and plan of care. - Patient Problems (1) Acute CVA (cerebrovascular accident) Current Visit: Yes Status: Acute (2) Stenosis of left internal carotid artery with cerebral infarction Current Visit: Yes Status: Acute (3) Hypertension Current Visit: Yes Status: Chronic Qualifiers: Hypertension type: essential hypertension Qualified Code(s): I10 - Essential (primary) hypertension (4) Diabetes mellitus Current Visit: Yes Status: Chronic Qualifiers: Diabetes mellitus type: type 2 Subjective Date of service: 03/31/18 Principal diagnosis: CVA, LICA stenosis Interval history: Pt sitting up at bedside, no current complaints. s/p left CEA yesterday. BPs elevated this AM. Objective Last Vital Signs Temp 98.2 F 03/30/18 23:00 Pulse 104 H 03/31/18 08:31 Resp 19 03/31/18 08:31 BP 166/84 03/31/18 08:31 Pulse Ox 97 03/31/18 08:55 - Physical Examination General: No Apparent Distress HEENT: Positive: EOMI, Normocephaly, Mucus Membranes Moist Neck: Positive: neck supple, trachea midline Cardiac: Positive: Reg Rate and Rhythm, S1/S2 Lungs: Positive: clear to auscultation Neuro: Positive: Grossly Intact Abdomen: Positive: Soft, Active Bowel Sounds. Negative: Tender Skin: Positive: Clear, Other (left CEA surgical incision site c/d/i). Negative : Rash Musculoskeletal: Normal Range of Motion Extremities: Present: normal. Absent: edema - Labs and Meds Coagulation 03/30/18 Range/Units 09:20 PT 14.8 (12.2-14.9) Sec. INR 1.10 (0.87-1.13) APTT 30.9 (24.2-36.6) Sec. CBC 03/30/18 03/31/18 Range/Units 09:20 04:43 WBC 9.2 (4.5-11.0) K/mm3 RBC 5.22 H (3.65-5.03) M/mm3 Hgb 15.0 14.4 (11.8-15.2) gm/dl Hct 44.1 42.2 (35.5-45.6) % Plt Count 235 221 (140-440) K/mm3 Comprehensive Metabolic Panel 03/31/18 Range/Units 04:43 Sodium 143 (137-145) mmol/L Potassium 3.8 (3.6-5.0) mmol/L Chloride 103.1 (98-107) mmol/L Carbon Dioxide 25 (22-30) mmol/L BUN 13 (9-20) mg/dL Creatinine 1.1 (0.8-1.5) mg/dL Glucose 150 H (75-100) mg/dL Calcium 8.8 (8.4-10.2) mg/dL - Imaging and Cardiology EKG: report reviewed - Telemetry EKG Rhythm: Sinus Rhythm
--- NOTE | 2018-03-31 10:41 | Progress Note ---
Assessment and Plan Acute ischemic CVA Acute Encephalopathy Arrythmia (NSR with frequent extrasystolee's) High grade left ICA stenosis Hypertension Diabetes type II - continue secondary prevention measures - on ASA - on statin therapy - glycemic control with SSI - Onplavix - continue GI prophylaxis - continue other care per attending / other consultants ... 25' Subjective Date of service: 03/31/18 Principal diagnosis: CVA, LICA stenosis Interval history: Patient is seen today for: CVA, LICA stenosis Seen and examined at bedside; 24hour events reviewed; nursing and respiratory care staff consulted; no adverse overnight events reported to me; resting peacefully; feels better; denies headaches; walked around [place] and no dizziness or falls Objective Vital Signs - 12hr 03/30/18 03/30/18 03/30/18 23:00 23:01 23:29 Temperature 98.2 F Pulse Rate 68 56 L Respiratory 14 11 L Rate Blood Pressure 132/57 126/57 O2 Sat by Pulse 99 99 Oximetry 03/30/18 03/31/18 03/31/18 23:31 00:01 00:05 Temperature Pulse Rate 60 64 64 Respiratory 14 14 15 Rate Blood Pressure 128/59 170/84 126/57 O2 Sat by Pulse 100 100 99 Oximetry 03/31/18 03/31/18 03/31/18 00:31 01:00 01:31 Temperature Pulse Rate 75 63 76 Respiratory 17 14 17 Rate Blood Pressure 146/77 142/63 153/65 O2 Sat by Pulse 99 100 98 Oximetry 03/31/18 03/31/18 03/31/18 02:00 02:31 03:00 Temperature Pulse Rate 78 82 83 Respiratory 18 18 16 Rate Blood Pressure 139/81 159/81 158/77 O2 Sat by Pulse 99 98 98 Oximetry 03/31/18 03/31/18 03/31/18 03:30 03:55 04:00 Temperature Pulse Rate 100 H 72 Respiratory 14 16 Rate Blood Pressure 151/81 159/74 O2 Sat by Pulse 95 100 95 Oximetry 03/31/18 03/31/18 03/31/18 04:30 05:00 05:31 Temperature Pulse Rate 79 77 80 Respiratory 21 16 12 Rate Blood Pressure 150/81 144/63 146/77 O2 Sat by Pulse 93 94 97 Oximetry 03/31/18 03/31/18 03/31/18 06:01 06:30 07:00 Temperature Pulse Rate 89 90 81 Respiratory 19 16 14 Rate Blood Pressure 150/82 170/83 148/69 O2 Sat by Pulse 95 98 93 Oximetry 03/31/18 03/31/18 03/31/18 07:30 08:00 08:01 Temperature Pulse Rate 92 H 88 Respiratory 25 H 21 Rate Blood Pressure 144/68 121/70 O2 Sat by Pulse 97 97 96 Oximetry 03/31/18 03/31/18 08:31 08:55 Temperature Pulse Rate 104 H Respiratory 19 Rate Blood Pressure 166/84 O2 Sat by Pulse 95 97 Oximetry Constitutional: no acute distress, alert, other (elderly AAM in no acute distress; normocephalic) Eyes: non-icteric ENT: oropharynx moist Neck: supple, no lymphadenopathy, no JVD, other (no thyrpomegaly) Effort: normal, mildly labored Ascultation: Bilateral: clear, diminished breath sounds Percussion: Bilateral: not dull Gastrointestinal: normoactive bowel sounds, soft, non-tender, non-distended, other (no HSM) Integumentary: normal Extremities: no cyanosis, no edema, pulses normal, no ischemia or petechiae Neurologic: normal mental status, non-focal exam (grossly), pupils equal and round, motor strength normal and Psychiatric: mood appropriate, affect normal CBC and BMP: 03/31/18 04:43 03/31/18 04:43 ABG, PT/INR, D-dimer: PT/INR, D-dimer PT 14.8 Sec. (12.2-14.9) 03/30/18 09:20 INR 1.10 (0.87-1.13) 03/30/18 09:20 Abnormal lab findings: Abnormal Labs 03/23/18 03/23/18 03/23/18 15:40 15:40 23:26 RBC 5.75 H Hct 46.9 H MCV 82 L MCH 26 L RDW 15.4 H [place] % (Auto) 9.0 H Chloride 96.4 L Glucose 119 H POC Glucose Hemoglobin A1c 6.4 H 03/24/18 03/24/18 03/25/18 06:23 06:23 06:41 RBC 5.40 H Hct MCV 81 L MCH RDW 15.8 H [place] % (Auto) 11.7 H Chloride Glucose 105 H POC Glucose 109 H Hemoglobin A1c 03/25/18 03/25/18 03/26/18 11:51 16:28 07:42 RBC Hct MCV MCH RDW [place] % (Auto) Chloride Glucose POC Glucose 106 H 140 H 114 H Hemoglobin A1c 03/26/18 03/27/18 03/27/18 21:35 12:35 22:22 RBC Hct MCV MCH RDW [place] % (Auto) Chloride Glucose 104 H POC Glucose 156 H 110 H Hemoglobin A1c 03/28/18 03/28/18 03/29/18 18:43 21:25 07:51 RBC Hct MCV MCH RDW [place] % (Auto) Chloride Glucose POC Glucose 129 H 106 H 112 H Hemoglobin A1c 03/29/18 03/29/18 03/30/18 11:59 21:47 06:21 RBC Hct MCV MCH RDW [place] % (Auto) Chloride Glucose POC Glucose 107 H 110 H 115 H Hemoglobin A1c 03/30/18 03/30/18 03/30/18 09:26 14:36 18:06 RBC Hct MCV MCH RDW [place] % (Auto) Chloride Glucose POC Glucose 121 H 110 H 118 H Hemoglobin A1c 03/30/18 03/31/18 03/31/18 21:47 04:43 04:43 RBC 5.22 H Hct MCV 81 L MCH RDW [place] % (Auto) Chloride Glucose 150 H POC Glucose 118 H Hemoglobin A1c Chest x-ray: image reviewed Allied health notes reviewed: nursing
--- NOTE | 2018-03-31 12:20 | Progress Note ---
Assessment and Plan Pt doing well from surgical stand point. Recommend speech therapy consult for continued speech difficulty and rehab options. Increase activity. Okay to transfer out of ICU from vascular surgery stand point when cleared medically. - Patient Problems (1) Stenosis of left internal carotid artery with cerebral infarction Current Visit: Yes Status: Acute (2) Diabetes mellitus Current Visit: Yes Status: Chronic Qualifiers: Diabetes mellitus type: type 2 (3) Hypertension Current Visit: Yes Status: Chronic Qualifiers: Hypertension type: essential hypertension Qualified Code(s): I10 - Essential (primary) hypertension Subjective Date of service: 03/31/18 Principal diagnosis: CVA, LICA stenosis Interval history: Pt awake and alert. OOB to chair. Denies any post-operative issue. Objective - Constitutional Vitals: Vital Signs - 12hr 03/31/18 03/31/18 03/31/18 00:31 01:00 01:31 Pulse Rate 75 63 76 Respiratory 17 14 17 Rate Blood Pressure 146/77 142/63 153/65 O2 Sat by Pulse 99 100 98 Oximetry 03/31/18 03/31/18 03/31/18 02:00 02:31 03:00 Pulse Rate 78 82 83 Respiratory 18 18 16 Rate Blood Pressure 139/81 159/81 158/77 O2 Sat by Pulse 99 98 98 Oximetry 03/31/18 03/31/18 03/31/18 03:30 03:55 04:00 Pulse Rate 100 H 72 Respiratory 14 16 Rate Blood Pressure 151/81 159/74 O2 Sat by Pulse 95 100 95 Oximetry 03/31/18 03/31/18 03/31/18 04:30 05:00 05:31 Pulse Rate 79 77 80 Respiratory 21 16 12 Rate Blood Pressure 150/81 144/63 146/77 O2 Sat by Pulse 93 94 97 Oximetry 03/31/18 03/31/18 03/31/18 06:01 06:30 07:00 Pulse Rate 89 90 81 Respiratory 19 16 14 Rate Blood Pressure 150/82 170/83 148/69 O2 Sat by Pulse 95 98 93 Oximetry 03/31/18 03/31/18 03/31/18 07:30 08:00 08:01 Pulse Rate 92 H 88 Respiratory 25 H 21 Rate Blood Pressure 144/68 121/70 O2 Sat by Pulse 97 97 96 Oximetry 03/31/18 03/31/18 08:31 08:55 Pulse Rate 104 H Respiratory 19 Rate Blood Pressure 166/84 O2 Sat by Pulse 95 97 Oximetry General appearance: Present: no acute distress - EENT Eyes: EOM intact ENT: hearing intact - Neck Neck: supple (soft, scant swelling, incision intact without erythema or drainage.) - Respiratory Respiratory effort: normal Extremities: no ischemia, normal temperature - Neurologic Neurologic: moves all extremities (supervisor loading strength equal and adequate.), other ( pt appears to understand when spoken to, but continues to have difficulty finding the correct words to say. This has improved significantly since yesterday morning.) - Psychiatric Psychiatric: appropriate mood/affect, intact judgment & insight, cooperative - Labs CBC & Chem 7: 03/31/18 04:43 03/31/18 04:43 Labs: Abnormal lab results 03/30/18 03/30/18 03/30/18 Range/Units 14:36 18:06 21:47 RBC (3.65-5.03) M/mm3 MCV (84-94) fl Glucose (75-100) mg/dL POC Glucose 110 H 118 H 118 H (70-105) 03/31/18 03/31/18 Range/Units 04:43 04:43 RBC 5.22 H (3.65-5.03) M/mm3 MCV 81 L (84-94) fl Glucose 150 H (75-100) mg/dL POC Glucose (70-105)
[2018-03-31] MEDS: PLAVIX PO SCH (12:21)
[2018-03-31] MEDS: ASPIRIN PO SCH (12:21)
[2018-03-31] MEDS: DIOVAN PO SCH (12:21)
[2018-03-31] MEDS: PEPCID PO SCH ×2 (12:22→22:23)
[2018-03-31] MEDS: LOPRESSOR PO SCH ×2 (12:22→22:24)
[2018-03-31] MEDS: SODIUM CHLORIDE FLUSH SYRINGE 10 ML IV SCH ×3 (12:29→22:24)
[2018-03-31] MEDS: COLACE PO SCH ×2 (14:21→22:24)
--- NOTE | 2018-03-31 16:16 | Progress Note ---
Assessment and Plan Assessment and plan: "72-year-old male with history of diabetes, 5 years of smoking, who presents with headache, vague dizziness, and left-sided partial visual loss with blurred vision over the last few days. Patient denies any weakness or numbness to his upper or lower extremities. Denies visual field cut. Ultrasound demonstrates severe left ICA stenosis with ICA to CCA ratio greater than [address] demonstrates severe left-sided carotid artery stenosis at the bulb greater than 80% with irregularity. On physical exam, patient has no visual field cut, has full strength in upper and lower extremities, denies sensory loss, but does endorse left-sided visual loss. Patient is overall minimally symptomatic from his stroke. MRI demonstrates left-sided caudate and parieto-occipital watershed infarct. Patient has a symptomatic left sided internal carotid artery lesion which is greater than 80% narrowed. He has a minor stroke. Discussed standard of care with patient which would be left-sided carotid endarterectomy after cardiac clearance. Patient understands. Risks, benefits, and alternatives discussed. Patient requires cardiac clearance. Continue antiplatelet and anti-statin therapy. Plan for endarterectomy this upcoming week." Patient while awaiting planned endarectomy experienced AMS with confusion and ataxic gait. Repeat imaging studies with CT head done did not show any new events. -Acute ischemic infarct stoke: treat with asa/statin -Acute Encephalopathy-stat repeat CAT scan was negative -?Afib-we'll check EKG -High grade left ICA stenosis: consulted Vascular, S/P left carotid endarterectomy. Can remove heparin -hypertension: low salt diet, antihypertensive with parameters prn -newly diagnosis dm type 2 most likely, a1c 6.4: start metformin if renal function is ok and after dye study, no home insulin due to problem with eye sight -Severe malnutrition, bmi 15.9: consult Railway Engineer per Dr. Patricio Bustamante: "72-year-old male with history of diabetes, 5 years of smoking, who presents with headache, vague dizziness, and left-sided partial visual loss with blurred vision over the last few days. Patient denies any weakness or numbness to his upper or lower extremities. Denies visual field cut. Ultrasound demonstrates severe left ICA stenosis with ICA to CCA ratio greater than [address] demonstrates severe left-sided carotid artery stenosis at the bulb greater than 80% with irregularity. On physical exam, patient has no visual field cut, has full strength in upper and lower extremities, denies sensory loss, but does endorse left-sided visual loss. Patient is overall minimally symptomatic from his stroke. MRI demonstrates left-sided caudate and parieto-occipital watershed infarct. 72-year-old male with history of diabetes, 5 years of smoking, who presents with headache, vague dizziness, and left-sided partial visual loss with blurred vision over the last few days. Patient denies any weakness or numbness to his upper or lower extremities. Denies visual field cut. Ultrasound demonstrates severe left ICA stenosis with ICA to CCA ratio greater than [address] demonstrates severe left-sided carotid artery stenosis at the bulb greater than 80% with irregularity. MRI demonstrates left-sided caudate and parieto-occipital watershed infarct. Patient has a symptomatic left sided internal carotid artery lesion which is greater than 80% narrowed. He has a minor stroke. Discussed standard of care with patient which would be left-sided carotid endarterectomy after cardiac clearance. Patient understands. Risks, benefits, and alternatives discussed. Patient requires cardiac clearance. Continue antiplatelet and anti-statin therapy. Plan for endarterectomy this upcoming week." Transfer to the medical floor. AND ANTICIPATE DISCHARGE IN AM History Interval history: Patient seen and examined this morning and doing well still with some difficulty with speech and left eye blurry vision. Hospitalist Physical - Physical exam Narrative exam: GEN: WDWN, NAD, Awake, Alert, Orientated x 3 HEENT: NCAT, EOMI, PERRL, OP Clear NECK: supple, no adenopathy, no thyromegaly, no JVD CVS/HEART: RRR, normal S1S2, pulses present bilaterally CHEST/LUNGS: CTA B, Symmetrical chest expansion, good air entry bilaterally GI/Abdomen: soft, NTND, good bowel sounds, no guarding or rebound /Bladder: no suprapubic tenderness, no CVA or paraspinal tenderness EXT/Skin: no c/c/e, no obvious rash MSK: FROM x 4 Neuro: aao x3, speech stable, still with some, left eye blurry vision Psych: calm - Constitutional Vitals: Temp Pulse Resp BP Pulse Ox 98.1 F 73 25 H 114/88 98 03/31/18 09:00 03/31/18 14:00 03/31/18 14:00 03/31/18 14:00 03/31/18 14:00 General appearance: Present: no acute distress Results - Labs CBC & Chem 7: 03/31/18 04:43 03/31/18 04:43 Labs: Laboratory Last Values WBC 9.2 K/mm3 (4.5-11.0) 03/31/18 04:43 RBC 5.22 M/mm3 (3.65-5.03) H 03/31/18 04:43 Hgb 14.4 gm/dl (11.8-15.2) 03/31/18 04:43 Hct 42.2 % (35.5-45.6) 03/31/18 04:43 MCV 81 fl (84-94) L 03/31/18 04:43 MCH 28 pg (28-32) 03/31/18 04:43 MCHC 34 % (32-34) 03/31/18 04:43 RDW 15.2 % (13.2-15.2) 03/31/18 04:43 Plt Count 221 K/mm3 (140-440) 03/31/18 04:43 Lymph % (Auto) 32.4 % (13.4-35.0) 03/24/18 06:23 [place] % (Auto) 11.7 % (0.0-7.3) H 03/24/18 06:23 Eos % (Auto) 1.9 % (0.0-4.3) 03/24/18 06:23 Baso % (Auto) 0.8 % (0.0-1.8) 03/24/18 06:23 Lymph # 2.0 K/mm3 (1.2-5.4) 03/24/18 06:23 [place] # 0.7 K/mm3 (0.0-0.8) 03/24/18 06:23 Eos # 0.1 K/mm3 (0.0-0.4) 03/24/18 06:23 Baso # 0.0 K/mm3 (0.0-0.1) 03/24/18 06:23 Seg Neutrophils % 53.2 % (40.0-70.0) 03/24/18 06:23 Seg Neutrophils # 3.3 K/mm3 (1.8-7.7) 03/24/18 06:23 PT 14.8 Sec. (12.2-14.9) 03/30/18 09:20 INR 1.10 (0.87-1.13) 03/30/18 09:20 APTT 30.9 Sec. (24.2-36.6) 03/30/18 09:20 Thrombin Time 17.3 Sec. (15.1-19.6) 03/23/18 15:40 Sodium 143 mmol/L (137-145) 03/31/18 04:43 Potassium 3.8 mmol/L (3.6-5.0) 03/31/18 04:43 Chloride 103.1 mmol/L (98-107) 03/31/18 04:43 Carbon Dioxide 25 mmol/L (22-30) 03/31/18 04:43 Anion Gap 19 mmol/L 03/31/18 04:43 BUN 13 mg/dL (9-20) 03/31/18 04:43 Creatinine 1.1 mg/dL (0.8-1.5) 03/31/18 04:43 Estimated GFR > 60 ml/min 03/31/18 04:43 BUN/Creatinine Ratio 12 % 03/31/18 04:43 Glucose 150 mg/dL (75-100) H 03/31/18 04:43 POC Glucose 118 (70-105) H 03/30/18 21:47 Hemoglobin A1c 6.4 % (4-6) H 03/23/18 23:26 Calcium 8.8 mg/dL (8.4-10.2) 03/31/18 04:43 Magnesium 2.00 mg/dL (1.7-2.3) 03/26/18 21:35 Total Bilirubin 0.70 mg/dL (0.1-1.2) 03/24/18 06:23 AST 29 units/L (5-40) 03/24/18 06:23 ALT 18 units/L (7-56) 03/24/18 06:23 Alkaline Phosphatase 90 units/L (35-129) 03/24/18 06:23 Troponin T < 0.010 ng/mL (0.00-0.029) 03/23/18 15:40 Total Protein 7.7 g/dL (6.3-8.2) 03/24/18 06:23 Albumin 4.0 g/dL (3.9-5) 03/24/18 06:23 Albumin/Globulin Ratio 1.1 % 03/24/18 06:23 Triglycerides 67 mg/dL (2-149) 03/24/18 06:23 Cholesterol 152 mg/dL (50-199) 03/24/18 06:23 LDL Cholesterol Direct 102 mg/dL (50-130) 03/24/18 06:23 HDL Cholesterol 44 mg/dL (40-59) 03/24/18 06:23 Cholesterol/HDL Ratio 3.45 % 03/24/18 06:23
[2018-04-01] MEDS: APRESOLINE IV PRN (04:31)
[2018-04-01] MEDS: PLAVIX PO SCH (09:14)
[2018-04-01] MEDS: DIOVAN PO SCH (09:15)
[2018-04-01] MEDS: LOPRESSOR PO SCH ×2 (09:15→22:16)
[2018-04-01] MEDS: COLACE PO SCH ×2 (09:15→22:16)
[2018-04-01] MEDS: PEPCID PO SCH ×2 (09:15→22:16)
[2018-04-01] MEDS: ASPIRIN PO SCH (09:15)
[2018-04-01] MEDS: SODIUM CHLORIDE FLUSH SYRINGE 10 ML IV SCH ×2 (09:20→22:19)
[2018-04-01] MEDS: HumaLOG SUB-Q SCH ×4 (09:33→22:00)
--- NOTE | 2018-04-01 09:45 | Progress Note ---
Assessment and Plan patient alert, awake. No complaint of chest pain or shortness of breath.O2 saturation 100% on room air. - Patient Problems (1) Acute CVA (cerebrovascular accident) Current Visit: Yes Status: Acute Plan to address problem: Patient left carotid stenosis. Patient undergone left carotid end arterectomy. Management as per vascular and neurology. (2) First degree AV block Current Visit: Yes Status: Acute Plan to address problem: Patient asymptomatic. Management as per primary care. (3) Stenosis of left internal carotid artery with cerebral infarction Current Visit: Yes Status: Acute Plan to address problem: Patient under gone left carotid endarterectomy. (4) Diabetes mellitus Current Visit: Yes Status: Chronic Qualifiers: Diabetes mellitus type: type 2 Plan to address problem: Management as per primary care. (5) Hypertension Current Visit: Yes Status: Chronic Qualifiers: Hypertension type: essential hypertension Qualified Code(s): I10 - Essential (primary) hypertension Plan to address problem: Management as per primary care. (6) Tobacco use Current Visit: Yes Status: Acute Plan to address problem: According to the chart, Patient has history of smoking. Counselled to stop smoking. Subjective Date of service: 04/01/18 Principal diagnosis: CVA, LICA stenosis Interval history: patient alert, awake. No complaint of chest pain or shortness of breath.O2 saturation 100% on room air. Objective Vital Signs - 12hr 03/31/18 04/01/18 22:53 00:47 Temperature 99.2 F Pulse Rate 93 H 74 Respiratory 20 Rate Blood Pressure 173/86 [Left] O2 Sat by Pulse 95 Oximetry Constitutional: no acute distress, alert, other (elderly AAM in no acute distress; normocephalic) Eyes: non-icteric ENT: oropharynx moist Neck: supple, no lymphadenopathy, no JVD, other (no thyrpomegaly) Effort: normal, mildly labored Ascultation: Bilateral: diminished breath sounds Percussion: Bilateral: not dull Cardiovascular: regular rate and rhythm Gastrointestinal: normoactive bowel sounds, soft, non-tender, non-distended, other (no HSM) Integumentary: normal Extremities: no cyanosis, no edema, pulses normal, no ischemia or petechiae Neurologic: unable to assess Psychiatric: other (affect is flat.) CBC and BMP: 03/31/18 04:43 03/31/18 04:43 ABG, PT/INR, D-dimer: PT/INR, D-dimer PT 14.8 Sec. (12.2-14.9) 03/30/18 09:20 INR 1.10 (0.87-1.13) 03/30/18 09:20 Abnormal lab findings: Abnormal Labs 03/23/18 03/23/18 03/23/18 15:40 15:40 23:26 RBC 5.75 H Hct 46.9 H MCV 82 L MCH 26 L RDW 15.4 H [place] % (Auto) 9.0 H Chloride 96.4 L Glucose 119 H POC Glucose Hemoglobin A1c 6.4 H 03/24/18 03/24/18 03/25/18 06:23 06:23 06:41 RBC 5.40 H Hct MCV 81 L MCH RDW 15.8 H [place] % (Auto) 11.7 H Chloride Glucose 105 H POC Glucose 109 H Hemoglobin A1c 03/25/18 03/25/18 03/26/18 11:51 16:28 07:42 RBC Hct MCV MCH RDW [place] % (Auto) Chloride Glucose POC Glucose 106 H 140 H 114 H Hemoglobin A1c 03/26/18 03/27/18 03/27/18 21:35 12:35 22:22 RBC Hct MCV MCH RDW [place] % (Auto) Chloride Glucose 104 H POC Glucose 156 H 110 H Hemoglobin A1c 03/28/18 03/28/18 03/29/18 18:43 21:25 07:51 RBC Hct MCV MCH RDW [place] % (Auto) Chloride Glucose POC Glucose 129 H 106 H 112 H Hemoglobin A1c 03/29/18 03/29/18 03/30/18 11:59 21:47 06:21 RBC Hct MCV MCH RDW [place] % (Auto) Chloride Glucose POC Glucose 107 H 110 H 115 H Hemoglobin A1c 03/30/18 03/30/18 03/30/18 09:26 14:36 18:06 RBC Hct MCV MCH RDW [place] % (Auto) Chloride Glucose POC Glucose 121 H 110 H 118 H Hemoglobin A1c 03/30/18 03/31/18 03/31/18 21:47 04:43 04:43 RBC 5.22 H Hct MCV 81 L MCH RDW [place] % (Auto) Chloride Glucose 150 H POC Glucose 118 H Hemoglobin A1c 03/31/18 03/31/18 03/31/18 12:14 16:22 21:50 RBC Hct MCV MCH RDW [place] % (Auto) Chloride Glucose POC Glucose 207 H 125 H 111 H Hemoglobin A1c 04/01/18 06:05 RBC Hct MCV MCH RDW [place] % (Auto) Chloride Glucose POC Glucose 136 H Hemoglobin A1c Allied health notes reviewed: nursing
--- NOTE | 2018-04-01 11:00 | Progress Note ---
Assessment and Plan Pt speech continues to improve. Doing well from a surgical stand point post-operatively. Recommend PT re-eval pt and having speech therapy see pt and offer recommendations for rehab. Otherwise okay to d/c from surgical standpoint when cleared medically. Pt should remain on ASA/Plavix and statin therapy. F/u in our office in 2 weeks. - Patient Problems (1) Stenosis of left internal carotid artery with cerebral infarction Current Visit: Yes Status: Acute (2) Diabetes mellitus Current Visit: Yes Status: Chronic Qualifiers: Diabetes mellitus type: type 2 (3) Hypertension Current Visit: Yes Status: Chronic Qualifiers: Hypertension type: essential hypertension Qualified Code(s): I10 - Essential (primary) hypertension Subjective Date of service: 04/01/18 Principal diagnosis: CVA, LICA stenosis Interval history: Pt awake and alert. Denies new complaint. Objective - Constitutional Vitals: Vital Signs - 12hr 04/01/18 00:47 Temperature 99.2 F Pulse Rate 74 Respiratory 20 Rate Blood Pressure 173/86 [Left] O2 Sat by Pulse 95 Oximetry General appearance: Present: no acute distress - EENT Eyes: EOM intact ENT: hearing intact - Neck Neck: supple (soft, incision intact without erythema or drainage.) - Respiratory Respiratory effort: normal Extremities: normal temperature - Neurologic Neurologic: moves all extremities (electric motor and generator assembler strength equal and adequate.), other (pt 's dysphasia continues to improve. Finds words much better today.) - Psychiatric Psychiatric: appropriate mood/affect, intact judgment & insight, cooperative - Labs CBC & Chem 7: 03/31/18 04:43 03/31/18 04:43 Labs: Abnormal lab results 03/31/18 03/31/18 03/31/18 Range/Units 12:14 16:22 21:50 POC Glucose 207 H 125 H 111 H (70-105) 04/01/18 Range/Units 06:05 POC Glucose 136 H (70-105)
[2018-04-01] MEDS ORDERED: DIOVAN PO SCH (11:08)
--- NOTE | 2018-04-01 11:53 | Progress Note ---
Assessment and Plan S/p left CEA on 03/30/2018. Currently stable cardiac status. Optimize anti-hypertensive regimen - valsartan increased to 360mg daily today per primary, will observe response. Follow vascular recs. Pt may discharge home from cardiology standpoint once BPs are optimized. Recommend follow up in our office with Dr. Ambrose within 1-2 weeks of hospital discharge ([phone]). The patient has been seen in conjunction with Dr. Brito who agrees with the assessment and plan of care. - Patient Problems (1) Acute CVA (cerebrovascular accident) Current Visit: Yes Status: Acute (2) Stenosis of left internal carotid artery with cerebral infarction Current Visit: Yes Status: Acute (3) Hypertension Current Visit: Yes Status: Chronic Qualifiers: Hypertension type: essential hypertension Qualified Code(s): I10 - Essential (primary) hypertension (4) Diabetes mellitus Current Visit: Yes Status: Chronic Qualifiers: Diabetes mellitus type: type 2 Subjective Date of service: 04/01/18 Principal diagnosis: CVA, LICA stenosis Interval history: Pt sitting up at bedside, no current complaints. BPs remain elevated. Objective Last Vital Signs Temp 99.2 F 04/01/18 00:47 Pulse 74 04/01/18 00:47 Resp 20 04/01/18 00:47 BP 173/86 04/01/18 00:47 Pulse Ox 95 04/01/18 00:47 - Physical Examination General: No Apparent Distress HEENT: Positive: EOMI, Normocephaly, Mucus Membranes Moist Neck: Positive: neck supple, trachea midline Cardiac: Positive: Reg Rate and Rhythm, S1/S2 Lungs: Positive: clear to auscultation Neuro: Positive: Grossly Intact Abdomen: Positive: Soft, Active Bowel Sounds. Negative: Tender Skin: Positive: Clear, Other (left CEA surgical incision site c/d/i). Negative : Rash Musculoskeletal: Normal Range of Motion Extremities: Present: normal. Absent: edema - Imaging and Cardiology EKG: report reviewed - Telemetry EKG Rhythm: Sinus Rhythm - Allied health notes Allied health notes reviewed: nursing
[2018-04-01] MEDS ORDERED: DIOVAN PO ONE (12:00)
--- NOTE | 2018-04-01 14:32 | Progress Note ---
Assessment and Plan Assessment and plan: "72-year-old male with history of diabetes, 5 years of smoking, who presents with headache, vague dizziness, and left-sided partial visual loss with blurred vision over the last few days. Patient denies any weakness or numbness to his upper or lower extremities. Denies visual field cut. Ultrasound demonstrates severe left ICA stenosis with ICA to CCA ratio greater than [address] demonstrates severe left-sided carotid artery stenosis at the bulb greater than 80% with irregularity. On physical exam, patient has no visual field cut, has full strength in upper and lower extremities, denies sensory loss, but does endorse left-sided visual loss. Patient is overall minimally symptomatic from his stroke. MRI demonstrates left-sided caudate and parieto-occipital watershed infarct. Patient has a symptomatic left sided internal carotid artery lesion which is greater than 80% narrowed. He has a minor stroke. Discussed standard of care with patient which would be left-sided carotid endarterectomy after cardiac clearance. Patient understands. Risks, benefits, and alternatives discussed. Patient requires cardiac clearance. Continue antiplatelet and anti-statin therapy. Plan for endarterectomy this upcoming week." Patient while awaiting planned endarectomy experienced AMS with confusion and ataxic gait. Repeat imaging studies with CT head done did not show any new events. Patient presented to have endarterectomy successfully with no complications. Blood pressure is being monitored and adjustments as needed. 360 mg and if this remains stable patient can be discharged to follow with cardiology,neurology. -Acute ischemic infarct stoke: treat with asa/statin -Acute Encephalopathy-stat repeat CAT scan was negative -Paroxysmal atrial fibrillation: Patient on aspirin and Plavix -High grade left ICA stenosis: consulted Vascular, S/P left carotid endarterectomy. -hypertension: low salt diet, antihypertensive with parameters prn -newly diagnosis dm type 2 most likely, a1c 6.4: start metformin if renal function is ok and after dye study, no home insulin due to problem with eye sight Discharge in a.m. History Interval history: Patient admitted for CVA. Seen and examined today post left carotid endarterectomy doing well in no acute distress at this time. Still with some left-sided visual field loss. Hospitalist Physical - Physical exam Narrative exam: GEN: WDWN, NAD, Awake, Alert, Orientated x 3 HEENT: NCAT, EOMI, PERRL, OP Clear NECK: supple, no adenopathy, no thyromegaly, no JVD CVS/HEART: RRR, normal S1S2, pulses present bilaterally CHEST/LUNGS: CTA B, Symmetrical chest expansion, good air entry bilaterally GI/Abdomen: soft, NTND, good bowel sounds, no guarding or rebound /Bladder: no suprapubic tenderness, no CVA or paraspinal tenderness EXT/Skin: no c/c/e, no obvious rash MSK: FROM x 4 Neuro: aao x3, speech stable, still with some, left eye blurry vision Psych: calm - Constitutional Vitals: Temp Pulse Resp BP Pulse Ox 98 F 67 20 137/74 100 04/01/18 12:00 04/01/18 12:00 04/01/18 12:00 04/01/18 12:00 04/01/18 12:00 General appearance: Present: no acute distress Results - Labs CBC & Chem 7: 03/31/18 04:43 03/31/18 04:43 Labs: Laboratory Last Values WBC 9.2 K/mm3 (4.5-11.0) 03/31/18 04:43 RBC 5.22 M/mm3 (3.65-5.03) H 03/31/18 04:43 Hgb 14.4 gm/dl (11.8-15.2) 03/31/18 04:43 Hct 42.2 % (35.5-45.6) 03/31/18 04:43 MCV 81 fl (84-94) L 03/31/18 04:43 MCH 28 pg (28-32) 03/31/18 04:43 MCHC 34 % (32-34) 03/31/18 04:43 RDW 15.2 % (13.2-15.2) 03/31/18 04:43 Plt Count 221 K/mm3 (140-440) 03/31/18 04:43 Lymph % (Auto) 32.4 % (13.4-35.0) 03/24/18 06:23 [place] % (Auto) 11.7 % (0.0-7.3) H 03/24/18 06:23 Eos % (Auto) 1.9 % (0.0-4.3) 03/24/18 06:23 Baso % (Auto) 0.8 % (0.0-1.8) 03/24/18 06:23 Lymph # 2.0 K/mm3 (1.2-5.4) 03/24/18 06:23 [place] # 0.7 K/mm3 (0.0-0.8) 03/24/18 06:23 Eos # 0.1 K/mm3 (0.0-0.4) 03/24/18 06:23 Baso # 0.0 K/mm3 (0.0-0.1) 03/24/18 06:23 Seg Neutrophils % 53.2 % (40.0-70.0) 03/24/18 06:23 Seg Neutrophils # 3.3 K/mm3 (1.8-7.7) 03/24/18 06:23 PT 14.8 Sec. (12.2-14.9) 03/30/18 09:20 INR 1.10 (0.87-1.13) 03/30/18 09:20 APTT 30.9 Sec. (24.2-36.6) 03/30/18 09:20 Thrombin Time 17.3 Sec. (15.1-19.6) 03/23/18 15:40 Sodium 143 mmol/L (137-145) 03/31/18 04:43 Potassium 3.8 mmol/L (3.6-5.0) 03/31/18 04:43 Chloride 103.1 mmol/L (98-107) 03/31/18 04:43 Carbon Dioxide 25 mmol/L (22-30) 03/31/18 04:43 Anion Gap 19 mmol/L 03/31/18 04:43 BUN 13 mg/dL (9-20) 03/31/18 04:43 Creatinine 1.1 mg/dL (0.8-1.5) 03/31/18 04:43 Estimated GFR > 60 ml/min 03/31/18 04:43 BUN/Creatinine Ratio 12 % 03/31/18 04:43 Glucose 150 mg/dL (75-100) H 03/31/18 04:43 POC Glucose 136 (70-105) H 04/01/18 06:05 Hemoglobin A1c 6.4 % (4-6) H 03/23/18 23:26 Calcium 8.8 mg/dL (8.4-10.2) 03/31/18 04:43 Magnesium 2.00 mg/dL (1.7-2.3) 03/26/18 21:35 Total Bilirubin 0.70 mg/dL (0.1-1.2) 03/24/18 06:23 AST 29 units/L (5-40) 03/24/18 06:23 ALT 18 units/L (7-56) 03/24/18 06:23 Alkaline Phosphatase 90 units/L (35-129) 03/24/18 06:23 Troponin T < 0.010 ng/mL (0.00-0.029) 03/23/18 15:40 Total Protein 7.7 g/dL (6.3-8.2) 03/24/18 06:23 Albumin 4.0 g/dL (3.9-5) 03/24/18 06:23 Albumin/Globulin Ratio 1.1 % 03/24/18 06:23 Triglycerides 67 mg/dL (2-149) 03/24/18 06:23 Cholesterol 152 mg/dL (50-199) 03/24/18 06:23 LDL Cholesterol Direct 102 mg/dL (50-130) 03/24/18 06:23 HDL Cholesterol 44 mg/dL (40-59) 03/24/18 06:23 Cholesterol/HDL Ratio 3.45 % 03/24/18 06:23
[2018-04-02] MEDS: HumaLOG SUB-Q SCH ×4 (07:45→22:00)
--- NOTE | 2018-04-02 09:17 | XRay Report ---
XRAY CHEST TWO VIEWS: 04/02/18 CLINICAL: Possible aspiration. COMPARISON: None. FINDINGS: Normal heart and pulmonary vasculature.Aortic ectasia and elongation. The lungs are normally expanded and clear. No airspace disease or pleural effusion. The bones and soft tissues are unremarkable. IMPRESSION: No pneumonia and no acute cardiopulmonary process.Hypertensive changes in the aorta.
[2018-04-02] MEDS ORDERED: DIOVAN PO SCH (10:00)
[2018-04-02] MEDS: PEPCID PO SCH ×2 (10:23→22:19)
[2018-04-02] MEDS: ASPIRIN PO SCH (10:23)
[2018-04-02] MEDS: COLACE PO SCH ×2 (10:23→22:20)
[2018-04-02] MEDS: PLAVIX PO SCH (10:24)
[2018-04-02] MEDS: SODIUM CHLORIDE FLUSH SYRINGE 10 ML IV SCH ×2 (10:24→22:08)
[2018-04-02] MEDS: LOPRESSOR PO SCH (10:28)
--- NOTE | 2018-04-02 11:21 | Progress Note ---
Assessment and Plan Acute ischemic CVA Acute Encephalopathy Arrythmia (NSR with frequent extrasystolee's) High grade left ICA stenosis Hypertension Diabetes type II - continue secondary prevention measures - tobacco cessation counselled - on ASA - on statin therapy - continue glycemic control with SSI - On plavix - continue GI prophylaxis - continue other care per attending / other consultants - d/c planning ongoing concurrently ... 25' Subjective Date of service: 04/02/18 Principal diagnosis: Acute Ischemic CVA; Acute Encephalopathy; LICA stenosis Interval history: Patient is seen today for: CVA, LICA stenosis Seen and examined at bedside; 24hour events reviewed; nursing and respiratory care staff consulted; no adverse overnight events reported to me; resting peacefully; sitting in bed; denies acute chest pains or increased SOB; No tachy- silvestre arrhythmia's Objective Vital Signs - 12hr 04/02/18 04/02/18 04/02/18 01:27 03:59 05:18 Temperature 99.1 F Pulse Rate 89 72 Respiratory 16 Rate Blood Pressure 154/79 O2 Sat by Pulse 99 99 Oximetry 04/02/18 04/02/18 04/02/18 08:48 10:28 10:29 Temperature Pulse Rate 80 67 67 Respiratory Rate Blood Pressure 155/75 155/75 O2 Sat by Pulse Oximetry Constitutional: no acute distress, alert, other (elderly AAM in no acute distress; normocephalic) Eyes: non-icteric ENT: oropharynx moist Neck: supple, no lymphadenopathy, no JVD, other (no thyrpomegaly) Effort: normal Ascultation: Bilateral: clear, diminished breath sounds Percussion: Bilateral: not dull Cardiovascular: regular rate and rhythm Gastrointestinal: normoactive bowel sounds, soft, non-tender, non-distended, other (no HSM) Integumentary: normal Extremities: no cyanosis, no edema, pulses normal, no ischemia or petechiae Neurologic: normal mental status, pupils equal and round, CN II-XII normal, motor strength normal and, other (mild visual field deficit) Psychiatric: mood appropriate, affect normal CBC and BMP: 03/31/18 04:43 03/31/18 04:43 ABG, PT/INR, D-dimer: PT/INR, D-dimer PT 14.8 Sec. (12.2-14.9) 03/30/18 09:20 INR 1.10 (0.87-1.13) 03/30/18 09:20 Abnormal lab findings: Abnormal Labs 03/23/18 03/23/18 03/23/18 15:40 15:40 23:26 RBC 5.75 H Hct 46.9 H MCV 82 L MCH 26 L RDW 15.4 H [place] % (Auto) 9.0 H Chloride 96.4 L Glucose 119 H POC Glucose Hemoglobin A1c 6.4 H 03/24/18 03/24/18 03/25/18 06:23 06:23 06:41 RBC 5.40 H Hct MCV 81 L MCH RDW 15.8 H [place] % (Auto) 11.7 H Chloride Glucose 105 H POC Glucose 109 H Hemoglobin A1c 03/25/18 03/25/18 03/26/18 11:51 16:28 07:42 RBC Hct MCV MCH RDW [place] % (Auto) Chloride Glucose POC Glucose 106 H 140 H 114 H Hemoglobin A1c 03/26/18 03/27/18 03/27/18 21:35 12:35 22:22 RBC Hct MCV MCH RDW [place] % (Auto) Chloride Glucose 104 H POC Glucose 156 H 110 H Hemoglobin A1c 03/28/18 03/28/18 03/29/18 18:43 21:25 07:51 RBC Hct MCV MCH RDW [place] % (Auto) Chloride Glucose POC Glucose 129 H 106 H 112 H Hemoglobin A1c 03/29/18 03/29/18 03/30/18 11:59 21:47 06:21 RBC Hct MCV MCH RDW [place] % (Auto) Chloride Glucose POC Glucose 107 H 110 H 115 H Hemoglobin A1c 03/30/18 03/30/18 03/30/18 09:26 14:36 18:06 RBC Hct MCV MCH RDW [place] % (Auto) Chloride Glucose POC Glucose 121 H 110 H 118 H Hemoglobin A1c 03/30/18 03/31/18 03/31/18 21:47 04:43 04:43 RBC 5.22 H Hct MCV 81 L MCH RDW [place] % (Auto) Chloride Glucose 150 H POC Glucose 118 H Hemoglobin A1c 03/31/18 03/31/18 03/31/18 12:14 16:22 21:50 RBC Hct MCV MCH RDW [place] % (Auto) Chloride Glucose POC Glucose 207 H 125 H 111 H Hemoglobin A1c 04/01/18 04/01/18 04/01/18 06:05 09:24 11:57 RBC Hct MCV MCH RDW [place] % (Auto) Chloride Glucose POC Glucose 136 H 169 H 122 H Hemoglobin A1c 04/01/18 04/01/18 04/02/18 17:23 21:06 05:09 RBC Hct MCV MCH RDW [place] % (Auto) Chloride Glucose POC Glucose 146 H 136 H 148 H Hemoglobin A1c Chest x-ray: image reviewed Allied health notes reviewed: nursing
--- NOTE | 2018-04-02 17:46 | Progress Note ---
Assessment and Plan Pt is a 72-year-old male with history of diabetes, 5 years of smoking, who presents with headache, vague dizziness, and left-sided partial visual loss with blurred vision over the last few days. Patient denies any weakness or numbness to his upper or lower extremities. Denies visual field cut. Ultrasound demonstrates severe left ICA stenosis with ICA to CCA ratio greater than [address] demonstrates severe left-sided carotid artery stenosis at the bulb greater than 80% with irregularity. On physical exam, patient has no visual field cut, has full strength in upper and lower extremities, denies sensory loss, but does endorse left-sided visual loss. Patient is overall minimally symptomatic from his stroke. MRI demonstrates left-sided caudate and parieto-occipital watershed infarct. Patient has a symptomatic left sided internal carotid artery lesion which is greater than 80% narrowed. He has a minor stroke. Discussed standard of care with patient which would be left-sided carotid endarterectomy after cardiac clearance. Patient understands. Risks, benefits, and alternatives discussed. Patient requires cardiac clearance. Continue antiplatelet and anti-statin therapy. Plan for endarterectomy this upcoming week." Patient while awaiting planned endarectomy experienced AMS with confusion and ataxic gait. Repeat imaging studies with CT head done did not show any new events. Patient presented to have endarterectomy successfully with no complications. Blood pressure is being monitored and adjustments as needed. 360 mg and if this remains stable patient can be discharged to follow with cardiology,neurology. -Acute ischemic infarct stoke: treat with asa/statin -Acute Encephalopathy-stat repeat CAT scan was negative -Paroxysmal atrial fibrillation: Patient on aspirin and Plavix -High grade left ICA stenosis: consulted Vascular, S/P left carotid endarterectomy. -hypertension: low salt diet, Optimize controll b/e d/c antihypertensive with parameters prn -newly diagnosis dm type 2 most likely, a1c 6.4: start metformin if renal function is ok and after dye study, no home insulin due to problem with eye sight Dispositon: Optimize BP control and then Discharge Subjective Date of service: 04/02/18 Principal diagnosis: Acute Ischemic CVA; Acute Encephalopathy; LICA stenosis Interval history: pt seen and examined. No new complaint. Denies any chest pain or TUCKER. Still has elevated BP Objective - Constitutional Vitals: Vital Signs - 12hr 04/02/18 04/02/18 04/02/18 08:48 10:28 10:29 Temperature Pulse Rate 80 67 67 Respiratory Rate Blood Pressure 155/75 155/75 O2 Sat by Pulse Oximetry 04/02/18 11:50 Temperature 97.9 F Pulse Rate 66 Respiratory 18 Rate Blood Pressure 160/68 O2 Sat by Pulse 99 Oximetry General appearance: Present: no acute distress, well-nourished - EENT Eyes: PERRL, EOM intact Ears: bilateral: normal - Neck Neck: supple, normal ROM - Respiratory Respiratory: bilateral: CTA - Cardiovascular Rhythm: regular Heart Sounds: Present: S1 & S2. Absent: gallop, rub Extremities: pulses intact, No edema, normal color, Full ROM - Gastrointestinal General gastrointestinal: Present: soft, non-tender, non-distended, normal bowel sounds - Integumentary Integumentary: clear, warm, dry - Musculoskeletal Musculoskeletal: 1, strength equal bilaterally - Neurologic Neurologic: moves all extremities - Psychiatric Psychiatric: memory intact, appropriate mood/affect, intact judgment & insight - Labs CBC & Chem 7: 03/31/18 04:43 03/31/18 04:43 Labs: Abnormal lab results 04/01/18 04/01/18 04/01/18 Range/Units 09:24 11:57 17:23 POC Glucose 169 H 122 H 146 H (70-105) 04/01/18 04/02/18 04/02/18 Range/Units 21:06 05:09 11:58 POC Glucose 136 H 148 H 145 H (70-105) 04/02/18 Range/Units 16:29 POC Glucose 121 H (70-105)
[2018-04-02] MEDS: COREG PO SCH (22:19)
[2018-04-03] MEDS: HumaLOG SUB-Q SCH (08:03)
[2018-04-03 09:38] VITALS: BP 151/76
[2018-04-03] MEDS: ASPIRIN PO SCH (09:51)
[2018-04-03] MEDS: COREG PO SCH (09:53)
[2018-04-03] MEDS: PLAVIX PO SCH (09:53)
[2018-04-03] MEDS: PEPCID PO SCH (09:53)
[2018-04-03] MEDS: COLACE PO SCH (09:53)
[2018-04-03] MEDS: SODIUM CHLORIDE FLUSH SYRINGE 10 ML IV SCH (09:54)
[2018-04-03] MEDS ORDERED: DIOVAN PO SCH (10:00)
--- NOTE | 2018-04-03 11:59 | Discharge Summary ---
Providers - Providers Date of Admission: 03/23/18 17:54 Date of discharge: 04/03/18 Attending physician: GILL STAFFORD 03/23/18 23:12 Consult to Physician [CONS] Routine Comment: Consulting Provider: TIFFANY MOREIRA Physician Instructions: Reason For Exam: CVA 03/23/18 23:16 Consult to Case Management [CONS] Routine Services Needed at Discharge: Home Health Services Notified:: case management Consult to Dietitian/Nutrition [CONS] Routine Physician Instructions: Reason For Exam: Reason for Consult: Nutrition Recommendations Reason for Consult: Diet education Occupational Therapy Evaluate and Treat [CONS] Routine Comment: Reason For Exam: Neuro deficits Physical Therapy Evaluation and Treat [CONS] Routine Comment: Reason For Exam: Neuro deficits 03/24/18 15:40 Consult to Dietitian/Nutrition [CONS] Routine Physician Instructions: Reason For Exam: Reason for Consult: Malnutrition 03/25/18 08:45 Consult to Physician [CONS] Routine Comment: Consulting Provider: BUDDY SORENSON Physician Instructions: Reason For Exam: high grade left ICA stenosis 03/25/18 14:51 Consult to Physician [CONS] Routine Comment: Consulting Provider: BAILEE HARDING Physician Instructions: Reason For Exam: Pre-op cardiac evaluation for Lt CEA 03/27/18 14:50 Consult to Physician [CONS] Routine Comment: Consulting Provider: RAEGAN HIGGINS Physician Instructions: Reason For Exam: clearance for CEA after stroke 03/30/18 13:08 Consult to Physician [CONS] Routine Comment: Consulting Provider: KENNY BALTAZAR Physician Instructions: Reason For Exam: Critical care Admission 03/31/18 11:53 Physical Therapy Evaluation and Treat [CONS] Routine Comment: Thanks Reason For Exam: Evaluate & treat 03/31/18 12:23 Speech Therapy Evaluation and Treat [CONS] Routine Reason For Exam: Post stroke dysphasia Primary care physician: GIS DEVELOPER Hospitalization Reason for admission: acute ishemic stroke Condition: Stable Pertinent studies: CT head, MRI MRA of the brain that showed symtomatic right ICA stenosis Procedures: left carotid endarterectomy Hospital course: Patient is a 72-year-old male with history of diabetes, 5 years of smoking, who presents with headache, vague dizziness, and left-sided partial visual loss with blurred vision over the last few days. Patient denies any weakness or numbness to his upper or lower extremities. Denies visual field cut. Ultrasound demonstrates severe left ICA stenosis with ICA to CCA ratio greater than [address] demonstrates severe left-sided carotid artery stenosis at the bulb greater than 80% with irregularity. On physical exam, patient has no visual field cut, has full strength in upper and lower extremities, denies sensory loss, but does endorse left-sided visual loss. Patient is overall minimally symptomatic from his stroke. MRI demonstrates left-sided caudate and parieto-occipital watershed infarct. Patient has a symptomatic left sided internal carotid artery lesion which is greater than 80% narrowed. He has a minor stroke. Discussed standard of care with patient which would be left-sided carotid endarterectomy after cardiac clearance. Patient understands. Risks, benefits, and alternatives discussed. Patient requires cardiac clearance. Continue antiplatelet and anti-statin therapy. Plan for endarterectomy this upcoming week." Patient while awaiting planned endarectomy experienced AMS with confusion and ataxic gait. Repeat imaging studies with CT head done did not show any new events. Patient proceeded to have left endarterectomy successfully with no complications. Blood pressure is being monitored and adjustments as needed. 360 mg and if this remains stable patient can be discharged to follow with cardiology,neurology. Disposition: DC-01 TO HOME OR SELFCARE Time spent for discharge: 35 mins Core Measure Documentation - Palliative Care Palliative Care/ Comfort Measures: Not Applicable - Core Measures Any of the following diagnoses?: stroke - Stroke Discharge Requirements Statin for LDL = or >70 mg/dl on DC: Yes Anticoag for atrial fib/atrial flutter: Yes Antithrombotic for ischemic stroke: Yes Exam - Constitutional Vitals: Temp Pulse Resp BP Pulse Ox 98.5 F 69 18 151/76 98 04/03/18 08:37 04/03/18 09:53 04/03/18 08:37 04/03/18 09:53 04/03/18 08:37 General appearance: Present: no acute distress, well-nourished - EENT Eyes: Present: PERRL - Neck Neck: Present: supple, normal ROM - Respiratory Respiratory effort: normal Respiratory: bilateral: CTA - Cardiovascular Heart Sounds: Present: S1 & S2. Absent: rub, click - Extremities Extremities: pulses symmetrical, No edema Peripheral Pulses: within normal limits - Abdominal General gastrointestinal: Present: soft, non-tender, non-distended, normal bowel sounds - Integumentary Integumentary: Present: clear, warm, dry - Musculoskeletal Musculoskeletal: gait normal, strength equal bilaterally - Psychiatric Psychiatric: appropriate mood/affect, intact judgment & insight - Neurologic Neurologic: CNII-XII intact, moves all extremities Plan Activity: fall precautions Weight Bearing Status: Weight Bear as Tolerated Diet: low cholesterol, diabetic Follow up with: PRIMARY CARE, [Primary Care Provider] - 7 Days RAEGAN ANDREW MD [Staff Physician] - 7 Days Prescriptions: Aspirin [Aspirin TAB] 81 mg PO QDAY #30 tablet AtorvaSTATin [Lipitor] 80 mg PO QHS #30 tablet Carvedilol [Coreg] 25 mg PO BID #60 tablet Clopidogrel [Plavix] 75 mg PO QDAY #30 tablet Glimepiride [Amaryl] 4 mg PO BID #60 tablet Valsartan [Diovan] 320 mg PO DAILY #30 tablet
--- NOTE | 2018-04-03 15:48 | Progress Note ---
Assessment and Plan Acute ischemic CVA Acute Encephalopathy Arrythmia (NSR with frequent extrasystolee's) High grade left ICA stenosis Hypertension Diabetes type II - continue secondary prevention measures - on ASA - on statin therapy - glycemic control with SSI - Onplavix - continue GI prophylaxis - continue other care per attending / other consultants ... 25' Subjective Date of service: 04/03/18 Principal diagnosis: Acute Ischemic CVA; Acute Encephalopathy; LICA stenosis Interval history: Patient is seen today for: CVA, LICA stenosis Seen and examined at bedside; 24hour events reviewed; nursing and respiratory care staff consulted; no adverse overnight events reported to me; resting peacefully; Objective Vital Signs - 12hr 04/03/18 04/03/18 04/03/18 04:41 08:37 09:52 Temperature 98.5 F 98.5 F Pulse Rate 87 69 69 Respiratory 18 18 Rate Blood Pressure 151/76 151/76 Blood Pressure 145/77 [Left] O2 Sat by Pulse 100 98 Oximetry 04/03/18 09:53 Temperature Pulse Rate 69 Respiratory Rate Blood Pressure 151/76 Blood Pressure [Left] O2 Sat by Pulse Oximetry Constitutional: no acute distress, alert, other (elderly AAM in no acute distress; normocephalic) Eyes: non-icteric ENT: oropharynx moist Neck: supple, no lymphadenopathy, no JVD, other (no thyrpomegaly) Effort: normal, mildly labored Ascultation: Bilateral: clear, diminished breath sounds Percussion: Bilateral: not dull Cardiovascular: regular rate and rhythm Gastrointestinal: normoactive bowel sounds, soft, non-tender, non-distended, other (no HSM) Integumentary: normal Extremities: no cyanosis, no edema, pulses normal, no ischemia or petechiae Neurologic: unable to assess Psychiatric: other (affect is flat.) CBC and BMP: 03/31/18 04:43 03/31/18 04:43 ABG, PT/INR, D-dimer: PT/INR, D-dimer PT 14.8 Sec. (12.2-14.9) 03/30/18 09:20 INR 1.10 (0.87-1.13) 03/30/18 09:20 Abnormal lab findings: Abnormal Labs 03/23/18 03/23/18 03/23/18 15:40 15:40 23:26 RBC 5.75 H Hct 46.9 H MCV 82 L MCH 26 L RDW 15.4 H [place] % (Auto) 9.0 H Chloride 96.4 L Glucose 119 H POC Glucose Hemoglobin A1c 6.4 H 03/24/18 03/24/18 03/25/18 06:23 06:23 06:41 RBC 5.40 H Hct MCV 81 L MCH RDW 15.8 H [place] % (Auto) 11.7 H Chloride Glucose 105 H POC Glucose 109 H Hemoglobin A1c 03/25/18 03/25/18 03/26/18 11:51 16:28 07:42 RBC Hct MCV MCH RDW [place] % (Auto) Chloride Glucose POC Glucose 106 H 140 H 114 H Hemoglobin A1c 03/26/18 03/27/18 03/27/18 21:35 12:35 22:22 RBC Hct MCV MCH RDW [place] % (Auto) Chloride Glucose 104 H POC Glucose 156 H 110 H Hemoglobin A1c 03/28/18 03/28/18 03/29/18 18:43 21:25 07:51 RBC Hct MCV MCH RDW [place] % (Auto) Chloride Glucose POC Glucose 129 H 106 H 112 H Hemoglobin A1c 03/29/18 03/29/18 03/30/18 11:59 21:47 06:21 RBC Hct MCV MCH RDW [place] % (Auto) Chloride Glucose POC Glucose 107 H 110 H 115 H Hemoglobin A1c 03/30/18 03/30/18 03/30/18 09:26 14:36 18:06 RBC Hct MCV MCH RDW [place] % (Auto) Chloride Glucose POC Glucose 121 H 110 H 118 H Hemoglobin A1c 03/30/18 03/31/18 03/31/18 21:47 04:43 04:43 RBC 5.22 H Hct MCV 81 L MCH RDW [place] % (Auto) Chloride Glucose 150 H POC Glucose 118 H Hemoglobin A1c 03/31/18 03/31/18 03/31/18 12:14 16:22 21:50 RBC Hct MCV MCH RDW [place] % (Auto) Chloride Glucose POC Glucose 207 H 125 H 111 H Hemoglobin A1c 04/01/18 04/01/18 04/01/18 06:05 09:24 11:57 RBC Hct MCV MCH RDW [place] % (Auto) Chloride Glucose POC Glucose 136 H 169 H 122 H Hemoglobin A1c 04/01/18 04/01/18 04/02/18 17:23 21:06 05:09 RBC Hct MCV MCH RDW [place] % (Auto) Chloride Glucose POC Glucose 146 H 136 H 148 H Hemoglobin A1c 04/02/18 04/02/18 04/02/18 11:58 16:29 21:25 RBC Hct MCV MCH RDW [place] % (Auto) Chloride Glucose POC Glucose 145 H 121 H 125 H Hemoglobin A1c 04/03/18 05:55 RBC Hct MCV MCH RDW [place] % (Auto) Chloride Glucose POC Glucose 148 H Hemoglobin A1c Allied health notes reviewed: nursing
--- NOTE | 2018-04-03 15:53 | Progress Note ---
Assessment and Plan Acute ischemic CVA Acute Encephalopathy Tobacco Use Disorder Arrhythmia High grade left ICA stenosis Hypertension Diabetes type II - continue secondary prevention measures - tobacco cessation counselled - on ASA - on statin therapy - continue glycemic control with SSI - On plavix - continue GI prophylaxis - continue other care per attending / other consultants - outpatient ophthalmology evaluation - d/c planning ongoing concurrently ... 25' Subjective Date of service: 04/03/18 Principal diagnosis: Acute Ischemic CVA; Acute Encephalopathy; LICA stenosis; Tobacco Use Disord Interval history: Patient is seen today for: Acute Ischemic CVA; Acute Encephalopathy; LICA stenosis; Tobacco Use Disorder Seen and examined at bedside; 24hour events reviewed; nursing and respiratory care staff consulted; no adverse overnight events reported to me; resting peacefully; sitting in bed; denies acute chest pains or increased SOB; No tachy- silvestre arrhythmia's; BP's better controlled Objective Vital Signs - 12hr 04/03/18 04/03/18 04/03/18 04:41 08:37 09:52 Temperature 98.5 F 98.5 F Pulse Rate 87 69 69 Respiratory 18 18 Rate Blood Pressure 151/76 151/76 Blood Pressure 145/77 [Left] O2 Sat by Pulse 100 98 Oximetry 04/03/18 09:53 Temperature Pulse Rate 69 Respiratory Rate Blood Pressure 151/76 Blood Pressure [Left] O2 Sat by Pulse Oximetry Constitutional: no acute distress, alert, other (elderly AAM in no acute distress; normocephalic) Eyes: non-icteric ENT: oropharynx moist Neck: supple, no lymphadenopathy, no JVD, other (no thyrpomegaly) Effort: normal Ascultation: Bilateral: clear, diminished breath sounds Percussion: Bilateral: not dull Cardiovascular: regular rate and rhythm Gastrointestinal: normoactive bowel sounds, soft, non-tender, non-distended, other (no HSM) Integumentary: normal Extremities: no cyanosis, no edema, pulses normal, no ischemia or petechiae Neurologic: normal mental status, pupils equal and round, CN II-XII normal, motor strength normal and, other (mild visual field deficit) Psychiatric: mood appropriate, affect normal CBC and BMP: 03/31/18 04:43 03/31/18 04:43 ABG, PT/INR, D-dimer: PT/INR, D-dimer PT 14.8 Sec. (12.2-14.9) 03/30/18 09:20 INR 1.10 (0.87-1.13) 03/30/18 09:20 Abnormal lab findings: Abnormal Labs 03/23/18 03/23/18 03/23/18 15:40 15:40 23:26 RBC 5.75 H Hct 46.9 H MCV 82 L MCH 26 L RDW 15.4 H [place] % (Auto) 9.0 H Chloride 96.4 L Glucose 119 H POC Glucose Hemoglobin A1c 6.4 H 03/24/18 03/24/18 03/25/18 06:23 06:23 06:41 RBC 5.40 H Hct MCV 81 L MCH RDW 15.8 H [place] % (Auto) 11.7 H Chloride Glucose 105 H POC Glucose 109 H Hemoglobin A1c 03/25/18 03/25/18 03/26/18 11:51 16:28 07:42 RBC Hct MCV MCH RDW [place] % (Auto) Chloride Glucose POC Glucose 106 H 140 H 114 H Hemoglobin A1c 03/26/18 03/27/18 03/27/18 21:35 12:35 22:22 RBC Hct MCV MCH RDW [place] % (Auto) Chloride Glucose 104 H POC Glucose 156 H 110 H Hemoglobin A1c 03/28/18 03/28/18 03/29/18 18:43 21:25 07:51 RBC Hct MCV MCH RDW [place] % (Auto) Chloride Glucose POC Glucose 129 H 106 H 112 H Hemoglobin A1c 03/29/18 03/29/18 03/30/18 11:59 21:47 06:21 RBC Hct MCV MCH RDW [place] % (Auto) Chloride Glucose POC Glucose 107 H 110 H 115 H Hemoglobin A1c 03/30/18 03/30/18 03/30/18 09:26 14:36 18:06 RBC Hct MCV MCH RDW [place] % (Auto) Chloride Glucose POC Glucose 121 H 110 H 118 H Hemoglobin A1c 03/30/18 03/31/18 03/31/18 21:47 04:43 04:43 RBC 5.22 H Hct MCV 81 L MCH RDW [place] % (Auto) Chloride Glucose 150 H POC Glucose 118 H Hemoglobin A1c 03/31/18 03/31/18 03/31/18 12:14 16:22 21:50 RBC Hct MCV MCH RDW [place] % (Auto) Chloride Glucose POC Glucose 207 H 125 H 111 H Hemoglobin A1c 04/01/18 04/01/18 04/01/18 06:05 09:24 11:57 RBC Hct MCV MCH RDW [place] % (Auto) Chloride Glucose POC Glucose 136 H 169 H 122 H Hemoglobin A1c 04/01/18 04/01/18 04/02/18 17:23 21:06 05:09 RBC Hct MCV MCH RDW [place] % (Auto) Chloride Glucose POC Glucose 146 H 136 H 148 H Hemoglobin A1c 04/02/18 04/02/18 04/02/18 11:58 16:29 21:25 RBC Hct MCV MCH RDW [place] % (Auto) Chloride Glucose POC Glucose 145 H 121 H 125 H Hemoglobin A1c 04/03/18 05:55 RBC Hct MCV MCH RDW [place] % (Auto) Chloride Glucose POC Glucose 148 H Hemoglobin A1c Allied health notes reviewed: nursing
--- NOTE | 2018-04-04 16:59 | Vascular Lab Report ---
INTRAOPERATIVE CAROTID ARTERY DUPLEX Reason for exam: Completion of carotid endarterectomy Comments on the left: The common and internal carotid arteries are patent without evidence of intraluminal irregularities. Flow velocities appear to be appropriate. No obvious technical defects at the endarterectomy site appreciated. Impression: No obvious technical imperfections at the endarterectomy site.
== END 2018-04-03 14:12 | disposition home health service (06) | DRG 37 ==
LOC: ED 15:04 → 4A 17:54 → CC1 03-30 09:41 → 4A 03-31 14:49
PROVIDERS: ADMIT Internal Medicine; ATTEND Family Medicine
PROC: 03CL0ZZ Extirpation of Matter from Left Internal Carotid Artery, Open Approach (ICD-10-PCS; principal; 2018-03-30)
PROC: 03UL0JZ Supplement Left Internal Carotid Artery with Synthetic Substitute, Open Approach (ICD-10-PCS; 2018-03-30)
PROC: 03CJ0ZZ Extirpation of Matter from Left Common Carotid Artery, Open Approach (ICD-10-PCS; 2018-03-30)
PROC: 03UJ0JZ Supplement Left Common Carotid Artery with Synthetic Substitute, Open Approach (ICD-10-PCS; 2018-03-30)
PROC: 3E033GC Introduction of Other Therapeutic Substance into Peripheral Vein, Percutaneous Approach (ICD-10-PCS; 2018-03-30)
DX: I63.232 Cerebral infarction due to unspecified occlusion or stenosis of left carotid arteries (principal); E43 Unspecified severe protein-calorie malnutrition; G93.40 Encephalopathy, unspecified; I10 Essential (primary) hypertension; E11.8 Type 2 diabetes mellitus with unspecified complications; N28.9 Disorder of kidney and ureter, unspecified; I49.9 Cardiac arrhythmia, unspecified; F17.200 Nicotine dependence, unspecified, uncomplicated; I48.0 Paroxysmal atrial fibrillation; Z68.29 Body mass index [BMI] 29.0-29.9, adult; Z79.2 Long term (current) use of antibiotics; Z82.49 Family history of ischemic heart disease and other diseases of the circulatory system; Z72.89 Other problems related to lifestyle
CPT/HCPCS: 36415; 70450; 70496; 70498; 70544; 70551; 71046; 78452; 80048; 80053; 80061; 82962; 83036; 83735; 84484; 85014; 85018; 85025; 85027; 85049; 85610; 85670; 85730; 88304; 88311; 93005; 93010; 93017; 93306; 93880; 94760; A9270-GY; A9502; C1768; G8978-GP; G8979-GP; G8980-GP; G8987-GO; G8988-GO; G8989-GO; G8996-GN; G8997-GN; G8998-GN; J0330; J0360; J0690; J1100; J1644; J1815; J2001; J2370; J2405; J2440; J2704; J2710; J2720; J2785; J3010; J7030; J7040; Q9967

== ENCOUNTER 2018-05-02 12:21 | Outpatient (CLI) | payer MEDICARE | END 2018-05-02 12:22 | disposition home or self-care (01) | LOC: LAB 12:21 | PROVIDERS: ATTEND Internal Medicine | DX: I10 Essential (primary) hypertension (principal); I63.9 Cerebral infarction, unspecified; E11.9 Type 2 diabetes mellitus without complications | CPT/HCPCS: 36415; 83036 ==

== ENCOUNTER 2019-01-16 08:39 | Outpatient (CLI) | payer MEDICARE ==
[2019-01-16 11:20] LABS: Alanine Aminotransferase 17 units/L (7-56); Albumin 4.2 g/dL (3.9-5); BUN/Creatinine Ratio 18; Blood Urea Nitrogen 22 mg/dL (9-20); Calcium 9.1 mg/dL (8.4-10.2); Hemolysis Index 6
== END 2019-01-16 08:40 | disposition home or self-care (01) ==
LOC: LAB 08:39
PROVIDERS: ATTEND Internal Medicine
DX: I10 Essential (primary) hypertension (principal); E11.9 Type 2 diabetes mellitus without complications; E78.5 Hyperlipidemia, unspecified; E23.0 Hypopituitarism
CPT/HCPCS: 36415; 80053; 82306; 83036

== ENCOUNTER 2019-06-05 08:47 | Outpatient (CLI) | payer MEDICARE ==
[2019-06-05 10:37] LABS: Chol/HDL Ratio 2.8 %
[2019-06-08 14:47] LABS: Vitamin D, 25-OH, D2 <4 ng/mL
== END 2019-06-05 08:48 | disposition home or self-care (01) ==
LOC: LAB 08:47
PROVIDERS: ATTEND Internal Medicine
DX: E11.9 Type 2 diabetes mellitus without complications (principal); E78.5 Hyperlipidemia, unspecified; I10 Essential (primary) hypertension; Z13.21 Encounter for screening for nutritional disorder
CPT/HCPCS: 36415; 80061; 82306; 83036

== ENCOUNTER 2020-10-23 09:58 | Outpatient (CLI) | payer MEDICARE ==
[2020-10-23 10:43] LABS: Hematocrit 34.5 % (35.5-45.6); Hemoglobin 11.5 gm/dl (11.8-15.2); Mean Corpuscular HGB Conc 33 % (32-34); Mean Corpuscular Volume 79 fl (84-94); Platelet Count 224 K/mm3 (140-440); Red Blood Count 4.37 M/mm3 (3.65-5.03); Red Cell Distribution Width 16.2 % (13.2-15.2)
[2020-10-23 11:06] LABS: Albumin 3.3 g/dL (3.9-5); Calcium 9.4 mg/dL (8.4-10.2)
[2020-10-23 11:52] LABS: Basophils % (Manual) 0 % (0.0-1.8); Eosinophils % (Manual) 0 % (0.0-4.3); Total Cells Counted 100
[2020-10-23 11:53] LABS: Anisocytosis 1+; Platelet Estimate Consistent w Auto; Toxic Vacuolation Few
[2020-10-28 13:27] LABS: Vitamin D, 25-OH, D2 <4 ng/mL
== END 2020-10-23 09:59 | disposition home or self-care (01) ==
LOC: LAB 09:58
PROVIDERS: ATTEND Internal Medicine
DX: Z13.29 Encounter for screening for other suspected endocrine disorder (principal); E11.9 Type 2 diabetes mellitus without complications; E78.5 Hyperlipidemia, unspecified; E55.9 Vitamin D deficiency, unspecified
CPT/HCPCS: 36415; 80053; 80061; 82306; 83036; 84443; 85007; 85025